=== PATIENT | female | born 1930 | race Two or more races ===

== ENCOUNTER 2017-08-05 22:23 | Inpatient (IN) | payer MEDICARE, MEDICAID ==
[~2017-08-05] VITALS: Ht 154.9 cm; Wt 63.5 kg
[~2017-08-05 22:23] MED LIST: 8 HOUR650 MG ORAL; ASPIRIN81 MG ORAL; ASTEPRO205.5 MCG1 NS; AZELASTINE137 MCG/0. NS; BACTRIM 400-801 EACH ORAL; CALCIUM 500 +1 EAC5 PO; CHILDREN'S ASPI81 MG ORAL; CLINDAMYCIN HC150 MG ORAL; COLACE100 MG ORAL; DEXTROSE 50%-WA50 M1 IV; DIPHENHYDRAMINE25 M1 ORAL; FEROSUL325 M1 PO; FLONASE ALLERG9.9 ML NS; HEPARIN SQ; INSULIN SQ; K-SOL20 MEQ/15 PO; LANTUS SOL100 UNIT/1 SUBQ; MIRALAX17 G2 ORAL; MOTRIN IB200 MG ORAL; MULTIVITAMINS1 EAC8 ORAL; MYLANTA30 M1 PO; NITROGLYCERIN0.4 MG SL; NOVOLIN N100 UNIT/1 SUBQ; NOVOLOG100 UNITS1; PAIN & FEVER325 MG PO; PRAVACHOL40 MG ORAL; ROPINIROLE HCL1 MG PO; SALINE 10ML FLU10 ML IVF; SODIUM CHLORI1000 ML IV; TRAMADOL HCL50 MG ORAL; TRAVATAN Z5 ML OP; TYLENOL650 MG/20. ORAL; VITAMIN B-121000 MCG PO; ZANTAC150 MG IVP; ZANTAC150 MG ORAL; ZOFRAN 4 MG4 MG/2 ML IV
[2017-08-05 22:30] VITALS: BP 127/60
[2017-08-05 23:11] LABS: BASOPHILS % (AUTO) 0.8 % (0.0-2.0); EOSINOPHILS % (AUTO) 1.1 % (0.0-3.0); LYMPHOCYTES % (AUTO) 11.5 % (20.0-45.0); MEAN CORPUSCULAR HGB CONC 30.1 G/DL (32.0-36.0); MEAN CORPUSCULAR VOLUME 90 FL (80-99); MEAN PLATELET VOLUME 5.8 FL (6.5-10.1); MONOCYTES % (AUTO) 5.2 % (1.0-10.0); NEUTROPHILS % (AUTO) 81.6 % (45.0-75.0); PLATELET COUNT 493 K/UL (150-450); RED BLOOD COUNT 3.58 M/UL (4.20-5.40); RED CELL DISTRIBUTION WIDTH 13.8 % (11.6-14.8); WHITE BLOOD COUNT 15.7 K/UL (4.8-10.8)
[2017-08-05 23:18] LABS: APPEARANCE,URINE CLOUDY; KETONES,URINE NEGATIVE (NEGATIVE); LEUKOCYTE ESTERASE ,URINE 3+ (NEGATIVE); NITRITE,URINE NEGATIVE (NEGATIVE); PH,URINE 9 (4.5-8.0); PROTEIN,URINE 3+ (NEGATIVE); UROBILINOGEN,URINE NORMAL MG/DL (0.0-1.0)
[2017-08-05 23:38] LABS: ALANINE AMINOTRANSFERASE 39 U/L (12-78); ALBUMIN/GLOBULIN RATIO 0.3 (1.0-2.7); ANION GAP 16 mmol/L (5-15); ASPARTATE AMINO TRANSFERASE 41 U/L (15-37); CALCIUM 9.6 MG/DL (8.5-10.1); CARBON DIOXIDE 15 MMOL/L (21-32); CHLORIDE 104 MMOL/L (98-107); CREATININE 1.8 MG/DL (0.55-1.30); POTASSIUM 3.4 MMOL/L (3.5-5.1); SODIUM 135 MMOL/L (136-145); TOTAL PROTEIN 7.8 G/DL (6.4-8.2)
[2017-08-05 23:49] LABS: REFLEX LACTIC ACID YES OR NO YES
[2017-08-06] VITALS (7 sets, daily range): BP systolic 100–143; BP diastolic 41–67
[2017-08-06 00:11] LABS: BACTERIA,URINE MANY /HPF; SQUAMOUS EPITHELIAL CELL,UR OCCASIONAL /LPF (NONE/OCC)
[2017-08-06] MEDS ORDERED: Cefepime HCl 1 GM in D5W 55 ML IVPB ONE (00:15)
[2017-08-06] MEDS ORDERED: Cefepime 1gm vial ONE (00:24)
[2017-08-06] MEDS ORDERED: VITAMIN C500 M1 ORAL (01:38)
[2017-08-06] MEDS ORDERED: NOVOLOG100 UNIT/4 SQ (01:38)
[2017-08-06] MEDS ORDERED: ZANTAC150 MG ORAL (01:38)
[2017-08-06] MEDS ORDERED: NUTRISOURCE FI1 EACH PO (01:38)
[2017-08-06] MEDS ORDERED: SANTYL30 GM TP (01:39)
--- NOTE | 2017-08-06 01:43 | Emergency Room Report ---
History of Present Illness General Chief Complaint: Altered Level of Consciousness Source: Patient, Family Member, Medical Record, EMS Present Illness HPI Is an 87-year-old female coming from a [facility]. She present with altered mental status and fever. Onset for the last day. No nausea no vomiting. Increased work of breathing. History is from the [facility] note EMS. Patient has dementia so history is limited. Allergies: Coded Allergies: PENICILLINS (Unverified Allergy, Unknown, 08/05/17) Patient History Past Medical History: see triage record, old chart reviewed, DM, HTN Past Surgical History: other Pertinent Family History: none Social History: Denies: smoking Last Menstrual Period: n/a Now: No Immunizations: other Reviewed Nursing Documentation: PMH: Agreed, PSxH: Agreed Nursing Documentation-PMH Past Medical History: No History, Except For Hx Cardiac Problems: No Hx Hypertension: Yes - Hyperlipidemia Hx Diabetes: Yes Hx Cancer: Yes Hx Gastrointestinal Problems: Yes - Ventral Hernia Hx Neurological Problems: No Review of Systems Constitutional: Reports: malaise, weakness Eye: Denies: eye pain, blurred vision ENT: Denies: ear pain, nose congestion, throat swelling Respiratory: Denies: cough, shortness of breath Cardiovascular: Denies: chest pain, palpitations Gastrointestinal: Denies: abdominal pain, diarrhea, nausea, vomiting Musculoskeletal: Denies: back pain, joint pain Skin: Denies: rash Neurological: Denies: headache, numbness Endocrine: Denies: increased thirst, increased urine Hematologic/Lymphatic: Denies: easy bruising All Other Systems: negative except mentioned in HPI Physical Exam Vital Signs Date Time Temp Pulse Resp B/P (MAP) Pulse Ox O2 Delivery O2 Flow Rate FiO2 08/05/17 22:19 99.1 116 25 95 Room Air 08/05/17 22:30 127/60 vitals with tachycardia Sp02 EP Interpretation: reviewed, normal General Appearance: mild distress, lethargic, thin, Chronically Ill Head: normocephalic, atraumatic Eyes: bilateral eye PERRL, bilateral eye EOMI ENT: hearing grossly normal, normal pharynx Neck: full range of motion, supple, no meningismus Respiratory: chest non-tender, lungs clear, normal breath sounds Cardiovascular #1: regular rate, rhythm, no murmur Gastrointestinal: normal bowel sounds, non tender, no mass, no organomegaly, no bruit, non-distended Musculoskeletal: back normal, normal range of motion Neurologic: grossly normal Psychiatric: mood/affect normal Skin: warm/dry Procedures Critical Care Time Critical Care Time Critical care is mandated in this patient who presented with sepsis from UTI. Patient require my urgent intervention to attenuate the risks of metabolic collapse which may lead to cardiovascular collapse and . Critical care time is 35 minutes excluding any reportable procedure. Critical care time included evaluation, multiple reevaluation, looking at old charts, interpreting laboratory and diagnostic data, discussing case with patient and family and consultants, and charting. Medical Decision Making Diagnostic Impression: Primary Impression: Sepsis Qualified Codes: A41.9 - Sepsis, unspecified organism Additional Impressions: UTI (urinary tract infection) Qualified Codes: N30.00 - Acute cystitis without hematuria Encephalopathy acute Hyperglycemia due to type 2 diabetes mellitus Qualified Codes: E11.65 - Type 2 diabetes mellitus with hyperglycemia Dehydration Prerenal azotemia Anemia Qualified Codes: D64.9 - Anemia, unspecified ER Course Patient presents with sepsis from UTI. She has evidence of dehydration and high blood sugar. Mental status improved greatly after IV fluid antibiotics. We'll get for continued treatment. Laboratory Tests Test 08/05/17 22:28 08/05/17 22:34 08/06/17 00:15 Urine Color Pale yellow Urine Appearance Cloudy Urine pH 9 (4.5-8.0) Urine Specific [place] 1.010 (1.005-1.035) Urine Protein 3+ (NEGATIVE) H Urine Glucose (UA) 3+ (NEGATIVE) H Urine Ketones Negative (NEGATIVE) Urine Occult Blood 3+ (NEGATIVE) H Urine Nitrite Negative (NEGATIVE) Urine Bilirubin Negative (NEGATIVE) Urine Urobilinogen Normal MG/DL (0.0-1.0) Urine Leukocyte Esterase 3+ (NEGATIVE) H Urine RBC 2-4 /HPF (0 - 2) H Urine WBC 2-4 /HPF (0 - 2) Urine Squamous Epithelial Cells Occasional /LPF Urine Bacteria Many /HPF (NONE) H White Blood Count 15.7 K/UL (4.8-10.8) H Red Blood Count 3.58 M/UL (4.20-5.40) L Hemoglobin 9.7 G/DL (12.0-16.0) L Hematocrit 32.1 % (37.0-47.0) L Mean Corpuscular Volume 90 FL (80-99) Mean Corpuscular Hemoglobin 27.0 PG (27.0-31.0) Mean Corpuscular Hemoglobin Concent 30.1 G/DL (32.0-36.0) L Red Cell Distribution Width 13.8 % (11.6-14.8) Platelet Count 493 K/UL (150-450) H Mean Platelet Volume 5.8 FL (6.5-10.1) L Neutrophils (%) (Auto) 81.6 % (45.0-75.0) H Lymphocytes (%) (Auto) 11.5 % (20.0-45.0) L Monocytes (%) (Auto) 5.2 % (1.0-10.0) Eosinophils (%) (Auto) 1.1 % (0.0-3.0) Basophils (%) (Auto) 0.8 % (0.0-2.0) Sodium Level 135 MMOL/L (136-145) L Potassium Level 3.4 MMOL/L (3.5-5.1) L Chloride Level 104 MMOL/L (98-107) Carbon Dioxide Level 15 MMOL/L (21-32) L Anion Gap 16 mmol/L (5-15) H Blood Urea Nitrogen 60 mg/dL (7-18) H Creatinine 1.8 MG/DL (0.55-1.30) H Estimat Glomerular Filtration Rate mL/min (>60) Glucose Level 413 MG/DL (74-106) H Lactic Acid Level 2.50 mmol/L (0.66-2.22) H 1.90 mmol/L (0.66-2.22) Calcium Level 9.6 MG/DL (8.5-10.1) Total Bilirubin 0.2 MG/DL (0.2-1.0) Aspartate Amino Transf (AST/SGOT) 41 U/L (15-37) H Alanine Aminotransferase (ALT/SGPT) 39 U/L (12-78) Alkaline Phosphatase 222 U/L (46-116) H Total Creatine Kinase 247 U/L (26-308) Creatine Kinase MB 1.0 NG/ML (0.0-3.6) Creatine Kinase MB Relative Index 0.4 Troponin I 0.000 ng/mL (0.000-0.056) Total Protein 7.8 G/DL (6.4-8.2) Albumin 1.7 G/DL (3.4-5.0) L Globulin 6.1 g/dL Albumin/Globulin Ratio 0.3 (1.0-2.7) L Lab Results Impression labs with elevated glucose and white count EKG Diagnostic Results Rate: tachycardiac Rhythm: NSR ST Segments: no acute changes Rhythm Strip Diag. Results Rhythm Strip Time: 01:42 EP Interpretation: yes Rate: 86 Rhythm: NSR, no PVC's, no ectopy Chest X-Ray Diagnostic Results Chest X-Ray Diagnostic Results : Chest X-Ray Ordered: Yes # of Views/Limited/Complete: 1 View Indication: Shortness of Breath EP Interpretation: Yes Interpretation: no consolidation, no effusion, no pneumothorax Impression: No acute disease Electronically Signed by: Electronically signed by Sarkis Acosta MD Last Vital Signs Date Time Temp Pulse Resp B/P (MAP) Pulse Ox O2 Delivery O2 Flow Rate FiO2 08/06/17 00:00 98.7 93 19 112/41 96 Room Air Status: improved Disposition: ADMITTED INPATIENT Condition: Serious Referrals: NON PHYSICIAN (PCP) SARKIS ACOSTA M.D. Aug 06, 2017 01:43
[2017-08-06] MEDS ORDERED: FERROUS SULFAT325 M2 ORAL ×2 (03:19)
[2017-08-06] MEDS ORDERED: FOLIC ACID1 MG ORAL (03:19)
[2017-08-06] MEDS ORDERED: Nitroglycerin Subl 0.4mg tab SL PRN (07:00)
[2017-08-06] MEDS ORDERED: Albuterol/Ipratropium 3ml neb HHN PRN (07:00)
[2017-08-06] MEDS ORDERED: Miralax 17gm pkt ORAL PRN (07:00)
[2017-08-06] MEDS ORDERED: Morphine Sulfate 2mg/ml Inj IVP PRN (07:00)
[2017-08-06] MEDS ORDERED: Vancomycin 1250mg/D5W 250ml IVPB ONE (08:30)
[2017-08-06] MEDS ORDERED: Cefepime HCl 2 GM in D5W 110 ML IV SCH (09:00)
[2017-08-06 09:56] LABS: INR 1.1 (0.9-1.1); PROTHROMBIN TIME 11.1 SEC (9.30-11.50)
[2017-08-06 10:00] LABS: LACTATE DEHYDROGENASE 222 U/L (81-234); URIC ACID 3.2 MG/DL (2.6-7.2)
[2017-08-06] MEDS: Heparin 5000 units/ml inj SUBQ SCH ×2 (10:12→21:37)
[2017-08-06 10:28] LABS: FOLIC ACID 7.4 NG/ML (3.1-17.5); IRON 13 ug/dL (50-175); TOTAL IRON BINDING CAPACITY 94 ug/dL (250-450)
[2017-08-06 11:16] LABS: RETICULOCYTE COUNT 0.8 % (0.0-2.0)
[2017-08-06 11:34] LABS: ERYTHROCYTE SEDIMENTATION RATE 128 MM/HR (0-42)
[2017-08-06 11:42] LABS: MEAN CORPUSCULAR HEMOGLOBIN 28.5 PG (27.0-31.0); MEAN CORPUSCULAR HGB CONC 32.8 G/DL (32.0-36.0); MEAN CORPUSCULAR VOLUME 87 FL (80-99); MEAN PLATELET VOLUME 5.3 FL (6.5-10.1); PLATELET COUNT 458 K/UL (150-450); RED BLOOD COUNT 3.06 M/UL (4.20-5.40); RED CELL DISTRIBUTION WIDTH 13.9 % (11.6-14.8); WHITE BLOOD COUNT 16.4 K/UL (4.8-10.8)
--- NOTE | 2017-08-06 11:43 | Diagnostic Imaging Report ---
Indication: Shortness of breath Technique: One view of the chest Comparison: none Findings: There is atelectasis at the left lateral lung base. There is minimal atelectasis at the right lateral lung base. The lungs and pleural spaces otherwise clear. The heart size is normal. Aorta is tortuous and ectatic. There are degenerative changes of both shoulders Impression: Left greater than right basilar atelectasis No acute process otherwise
[2017-08-06 11:57] LABS: BAND NEUTROPHILS % (MANUAL) 0 % (0-8); BASOPHILS % (MANUAL) 0 % (0-2); EOSINOPHILS % (MANUAL) 0 % (0-3); LYMPHOCYTES % (MANUAL) 9 % (20-45); NEUTROPHILS % (MANUAL) 86 % (45-75); PLATELET ESTIMATE INCREASED; PLATELET MORPHOLOGY NORMAL; TOTAL CELLS COUNTED 100
[2017-08-06 12:01] LABS: PATH BLOOD SMEAR/OMC SENT TO PATHOLOGIST
[2017-08-06] MEDS: NovoLOG Insulin Flexpen SUBQ SCH ×4 (13:26→21:48)
--- NOTE | 2017-08-06 13:33 | History and Physical ---
History of Present Illness General Date patient seen: Aug 06, 2017 Reason for Hospitalization: Altered Level of Consciousness Present Illness HPI 87-year-old female with PMHx of of DM, decubiti Ulcers. bed bound coming from a alf with CC of altered mental status and fever. Onset for the last day. No nausea no vomiting. Pt was found to be septic and admitted to telemetry. Currently pt is awake and keep saying that she rather be and [place]. Pt's son is at bed site and witnessing this. Pt is full code. Allergies: Coded Allergies: PENICILLINS (Unverified Allergy, Unknown, 08/05/17) Medication History Scheduled Ascorbic Acid* (Vitamin C*), 500 MG ORAL DAILY, (Reported) Clindamycin Hcl* (Clindamycin Hcl*), 300 MG ORAL TID, (Reported) Docusate Sodium* (Colace*), 100 MG ORAL THREE TIMES A DAY, (Reported) Ferrous Sulfate (Ferrous Sulfate), 325 MG ORAL DAILY, (Reported) Folic Acid* (Folic Acid*), 1 MG ORAL DAILY, (Reported) Ranitidine Hcl* (Zantac*), 150 MG ORAL DAILY, (Reported) Saline (Sodium Chloride), 10 ML IVF NEEDED, (Reported) Sulfamethoxazole/Trimethoprim (Bactrim 400-80 Mg Tablet*), 1 TAB ORAL TWICE A DAY, (Reported) [Heparin], 5,000 UNITS SQ EVERY 12 HOURS, (Reported) [Insulin], SQ AC+HS, (Reported) Scheduled PRN Acetaminophen (Pain & Fever), 650 MG PO Q6HR PRN for Fever/Headache/Mild Pain, ( Reported) Al Hydroxide/mg Hydroxide (Mag-Al Liquid), 30 ML PO EVERY 6 HOURS PRN for Nausea & Vomiting, (Reported) Dextrose 50 % In Water (Dextrose 50%-Water Vial), 50 ML IV NEEDED PRN for Hypoglycemia, (Reported) Diphenhydramine Hcl* (Diphenhydramine Hcl*), 25 MG ORAL Q6H PRN for Itching, ( Reported) Nitroglycerin (Nitroglycerin), 0.4 MG SL EVERY 5 MIN X 3DOSES PRN for Prn Chest Pain, (Reported) Ondansetron* (Zofran*), 4 MG IV Q6H PRN for Nausea & Vomiting, (Reported) Polyethylene Glycol 3350* (Miralax*), 17 GM ORAL HS PRN for Constipation, ( Reported) Miscellaneous Medications Collagenase Clostridium Hist. (Santyl), 1 APPLIC TP, (Reported) Guar Gum (Nutrisource Fiber), 1 EACH PO, (Reported) Insulin Aspart (Novolog), 100 UNIT SQ, (Reported) Sodium Chloride (Sodium Chloride), 1,000 ML IV, (Reported) Patient History Healthcare decision maker [facility] Resuscitation status Full Code Advanced Directive on File No Past Medical/Surgical History Past Medical/Surgical History: (1) Diabetes mellitus (2) HTN (hypertension) (3) History of uterine cancer Review of Systems All Other Systems: negative except mentioned in HPI Physical Exam General Appearance: WD/WN Lines, tubes and drains: peripheral HEENT: normocephalic, atraumatic Neck: non-tender, normal alignment Respiratory/Chest: chest wall non-tender, lungs clear, normal breath sounds Cardiovascular/Chest: normal peripheral pulses, normal rate Abdomen: non tender, soft Genitourinary/Rectal: normal rectal exam Extremities: normal range of motion Skin Exam: other - extensive decub Last 24 Hour Vital Signs Date Time Temp Pulse Resp B/P (MAP) Pulse Ox O2 Delivery O2 Flow Rate FiO2 08/06/17 08:00 98.8 84 18 107/44 99 Room Air 08/06/17 04:00 97.3 71 22 101/51 97 Room Air 08/06/17 04:00 95 08/06/17 02:20 97.9 98 20 100/67 98 Room Air 08/06/17 01:58 69 21 103/58 97 Room Air 08/06/17 00:00 98.7 93 19 112/41 96 Room Air 08/05/17 22:30 99.3 114 23 127/60 95 Room Air 08/05/17 22:19 99.1 116 25 95 Room Air Laboratory Tests Test 08/05/17 22:28 08/05/17 22:34 08/06/17 00:15 08/06/17 08:40 Urine Color Pale yellow Urine Appearance Cloudy Urine pH 9 (4.5-8.0) Urine Specific [place] 1.010 (1.005-1.035) Urine Protein 3+ (NEGATIVE) H Urine Glucose (UA) 3+ (NEGATIVE) H Urine Ketones Negative (NEGATIVE) Urine Occult Blood 3+ (NEGATIVE) H Urine Nitrite Negative (NEGATIVE) Urine Bilirubin Negative (NEGATIVE) Urine Urobilinogen Normal MG/DL (0.0-1.0) Urine Leukocyte Esterase 3+ (NEGATIVE) H Urine RBC 2-4 /HPF (0 - 2) H Urine WBC 2-4 /HPF (0 - 2) Urine Squamous Epithelial Cells Occasional /LPF Urine Bacteria Many /HPF (NONE) H White Blood Count 15.7 K/UL (4.8-10.8) H 16.4 K/UL (4.8-10.8) H Red Blood Count 3.58 M/UL (4.20-5.40) L 3.06 M/UL (4.20-5.40) L Hemoglobin 9.7 G/DL (12.0-16.0) L 8.7 G/DL (12.0-16.0) L Hematocrit 32.1 % (37.0-47.0) L 26.6 % (37.0-47.0) L Mean Corpuscular Volume 90 FL (80-99) 87 FL (80-99) Mean Corpuscular Hemoglobin 27.0 PG (27.0-31.0) 28.5 PG (27.0-31.0) Mean Corpuscular Hemoglobin Concent 30.1 G/DL (32.0-36.0) L 32.8 G/DL (32.0-36.0) Red Cell Distribution Width 13.8 % (11.6-14.8) 13.9 % (11.6-14.8) Platelet Count 493 K/UL (150-450) H 458 K/UL (150-450) H Mean Platelet Volume 5.8 FL (6.5-10.1) L 5.3 FL (6.5-10.1) L Neutrophils (%) (Auto) 81.6 % (45.0-75.0) H % (45.0-75.0) Lymphocytes (%) (Auto) 11.5 % (20.0-45.0) L % (20.0-45.0) Monocytes (%) (Auto) 5.2 % (1.0-10.0) % (1.0-10.0) Eosinophils (%) (Auto) 1.1 % (0.0-3.0) % (0.0-3.0) Basophils (%) (Auto) 0.8 % (0.0-2.0) % (0.0-2.0) Sodium Level 135 MMOL/L (136-145) L Potassium Level 3.4 MMOL/L (3.5-5.1) L Chloride Level 104 MMOL/L (98-107) Carbon Dioxide Level 15 MMOL/L (21-32) L Anion Gap 16 mmol/L (5-15) H Blood Urea Nitrogen 60 mg/dL (7-18) H Creatinine 1.8 MG/DL (0.55-1.30) H Estimat Glomerular Filtration Rate mL/min (>60) Glucose Level 413 MG/DL (74-106) H Lactic Acid Level 2.50 mmol/L (0.66-2.22) H 1.90 mmol/L (0.66-2.22) Calcium Level 9.6 MG/DL (8.5-10.1) Total Bilirubin 0.2 MG/DL (0.2-1.0) Aspartate Amino Transf (AST/SGOT) 41 U/L (15-37) H Alanine Aminotransferase (ALT/SGPT) 39 U/L (12-78) Alkaline Phosphatase 222 U/L (46-116) H Total Creatine Kinase 247 U/L (26-308) 234 U/L (26-308) Creatine Kinase MB 1.0 NG/ML (0.0-3.6) Creatine Kinase MB Relative Index 0.4 Troponin I 0.000 ng/mL (0.000-0.056) Total Protein 7.8 G/DL (6.4-8.2) Albumin 1.7 G/DL (3.4-5.0) L Globulin 6.1 g/dL Albumin/Globulin Ratio 0.3 (1.0-2.7) L Differential Total Cells Counted 100 Neutrophils % (Manual) 86 % (45-75) H Lymphocytes % (Manual) 9 % (20-45) L Monocytes % (Manual) 5 % (1-10) Eosinophils % (Manual) 0 % (0-3) Basophils % (Manual) 0 % (0-2) Band Neutrophils 0 % (0-8) Platelet Estimate Increased H Platelet Morphology Normal Red Blood Cell Morphology Normal Erythrocyte Sedimentation Rate 128 MM/HR (0-42) H Reticulocyte Count 0.8 % (0.0-2.0) Prothrombin Time 11.1 SEC (9.30-11.50) Prothromb Time International Ratio 1.1 (0.9-1.1) Activated Partial Thromboplast Time 31 SEC (23-33) Uric Acid 3.2 MG/DL (2.6-7.2) Iron Level 13 ug/dL (50-175) L Total Iron Binding Capacity 94 ug/dL (250-450) L Percent Iron Saturation 14 % (15-50) L Unsaturated Iron Binding 81 ug/dL (112-346) L Lactate Dehydrogenase 222 U/L (81-234) Vitamin B12 Level 297 PG/ML (193-986) Folate 7.4 NG/ML (3.1-17.5) Height (Feet): 5 Height (Inches): 1.00 Weight (Pounds): 140 Medications Current Medications Medications (Trade) Dose Ordered Sig/Hasmukh Route PRN Reason Start Time Stop Time Status Last Admin Dose Admin Acetaminophen (Tylenol) 650 mg Q4H PRN ORAL T>100.5 08/06/17 07:00 09/05/17 06:59 Albuterol/ Ipratropium (DuoNeb 0.5-3(2.5)mg/3ml) 3 ml Q4H PRN HHN Shortness of Breath 08/06/17 07:00 08/11/17 06:59 Cefepime HCl 1 gm/ Dextrose 55 ml @ 110 mls/hr Q24H IVPB 08/06/17 23:00 08/13/17 22:59 Dextrose (Dextrose 50%) STAT PRN IV Hypoglycemia 08/06/17 07:00 09/05/17 06:59 Heparin Sodium (Porcine) (Heparin 5000 units/ml) 5,000 units EVERY 12 HOURS SUBQ 08/06/17 09:00 09/05/17 08:59 08/06/17 10:12 Insulin Aspart (NovoLOG) BEFORE MEALS AND HS SUBQ 08/06/17 11:30 09/05/17 11:29 Morphine Sulfate (Morphine Sulfate) 2 mg Q4H PRN IVP Moderate Pain (Pain Scale 4-6) 08/06/17 07:00 08/13/17 06:59 Nitroglycerin (Ntg) 0.4 mg Q5MIN X 3 DOSES PRN SL Prn Chest Pain 08/06/17 07:00 09/05/17 06:59 Ondansetron HCl (Zofran) 4 mg Q6H PRN IVP Nausea & Vomiting 08/06/17 07:00 09/05/17 06:59 Polyethylene Glycol (Miralax) 17 gm DAILYPRN PRN ORAL Constipation 08/06/17 07:00 09/05/17 06:59 Sodium Chloride 1,000 ml @ 150 mls/hr Q6H40M IV 08/06/17 07:00 09/05/17 06:59 08/06/17 07:47 Temazepam (Restoril) 15 mg HSPRN PRN ORAL Insomnia 08/06/17 21:00 08/13/17 20:59 Vancomycin HCl (Vanco rx to dose) 1 ea DAILY PRN MISC . 08/06/17 07:00 09/05/17 06:59 Assessment/Plan Problem List: (1) Sepsis ICD Codes: A41.9 - Sepsis, unspecified organism SNOMED: 50681741, 02833396 Qualifiers: Qualified Codes: A41.9 - Sepsis, unspecified organism (2) Encephalopathy acute ICD Codes: G93.40 - Encephalopathy, unspecified SNOMED: 4845618 (3) HTN (hypertension) ICD Codes: I10 - Essential (primary) hypertension SNOMED: 81621485 (4) Anemia ICD Codes: D64.9 - Anemia, unspecified SNOMED: 233550889 Qualifiers: Qualified Codes: D64.9 - Anemia, unspecified (5) History of uterine cancer ICD Codes: Z85.42 - Personal history of malignant neoplasm of other parts of uterus SNOMED: 014550577, 596264267, 994466794 Assessment/Plan gill culture IV abx check electrolytes Dr hull informed about Decubiti iv hydration renal w/u. MELISSA ARDON Aug 06, 2017 13:33
--- NOTE | 2017-08-06 15:06 | Wound Care Consultation ---
Wound Assessment Wound Assessment #1: Wound Number: 1 Wound Present on Admission: Yes New Wound: No Status Change of Wound: No Wound Location Body Site Modif: mid Wound Location Body Site: sacral Wound Type: pressure ulcer Thien Test: Does not Thien Pressure Ulcer Stage: Unstageable Wound Thickness: Full Thickness Wound Length: 6.5 Wound Width: 6.0 Wound Depth: utd Percent of Wound [place]/Red: 20 Percent of Wound Bed Yellow/Wh: 80 Wound Drainage Description: Serosanguineous Wound Drainage Amount: Moderate Wound Drainage Odor: None/Absent Tissue Surrounding Wound: Macerated Wound General Appearance: Draining, Necrotic Wound Assessment #2: Wound Number: 2 Wound Present on Admission: Yes New Wound: No Status Change of Wound: No Wound Location Body Site Modif: left Wound Location Body Site: heel Wound Type: pressure ulcer Thien Test: Does not Thien Pressure Ulcer Stage: Deep Tissue Injury Wound Thickness: Full Thickness Wound Length: 5.5 Wound Width: 5.0 Wound Depth: utd Percent of Wound Purple/Maroon: 100 Wound Drainage Amount: None Wound Drainage Odor: None/Absent Tissue Surrounding Wound: Erythemic Wound General Appearance: Reddened - maroon Wound Assessment #3: Wound Number: 3 Wound Present on Admission: Yes New Wound: No Status Change of Wound: No Wound Location Body Site Modif: right Wound Location Body Site: metatarsal head - 1st Wound Type: pressure ulcer Thien Test: Does not Thien Pressure Ulcer Stage: Deep Tissue Injury Wound Thickness: Full Thickness Wound Length: 3.5 Wound Width: 3.0 Wound Depth: utd Percent of Wound Purple/Maroon: 100 Wound Drainage Amount: None Wound Drainage Odor: None/Absent Tissue Surrounding Wound: Erythemic Wound General Appearance: Reddened - purple Wound Assessment #4: Wound Number: 4 Wound Present on Admission: Yes New Wound: No Status Change of Wound: No Wound Location Body Site Modif: right, lateral Wound Location Body Site: toe - big Wound Type: pressure ulcer Thien Test: Does not Thien Pressure Ulcer Stage: Deep Tissue Injury Wound Thickness: Full Thickness Wound Length: 2.5 Wound Width: 2.0 Wound Depth: utd Percent of Wound Purple/Maroon: 100 Wound Drainage Amount: None Wound Drainage Odor: None/Absent Tissue Surrounding Wound: Erythemic Wound General Appearance: Reddened - purple Wound Assessment #5: Wound Number: 5 Wound Present on Admission: Yes New Wound: No Status Change of Wound: No Wound Location Body Site Modif: left Wound Location Body Site: trochanter Wound Type: pressure ulcer Thien Test: Does not Thien Pressure Ulcer Stage: I Wound Length: 3.0 Wound Width: 2.5 Percent of Wound [place]/Red: 100 Wound Drainage Amount: None Wound Drainage Odor: None/Absent Tissue Surrounding Wound: Intact Wound General Appearance: Reddened Wound Assessment #6: Wound Number: 6 Wound Present on Admission: Yes New Wound: No Status Change of Wound: No Wound Location Body Site Modif: right Wound Location Body Site: trochanter Wound Type: pressure ulcer Thien Test: Does not Thien Pressure Ulcer Stage: Deep Tissue Injury Wound Thickness: Full Thickness Wound Length: 6.5 Wound Width: 5.0 Wound Depth: utd Percent of Wound Purple/Maroon: 100 Wound Drainage Amount: None Wound Drainage Odor: None/Absent Tissue Surrounding Wound: Erythemic Wound General Appearance: Reddened - purple Wound Comment #1 Sacral unstageable pressure ulcer #2 Left heel DTI pressure ulcer #3 Right lateral 1st metatarsal head DTI pressure ulcer #4 Right lateral big toe DTI pressure ulcer #5 Left trochanter stage I pressure ulcer #6 Right trochanter DTI pressure ulcer Recommendation -Sacral unstageable pressure ulcer Cleanse with 1/2 Dakin's solution, pat dry, apply Triad to periwound area, apply Therahoney gel to wound bed, cover with Biatain silicone drg daily and PRN soiled/dislodged -Local wound care per protocol for DTI and stage I pressure ulcers -Optimize nutrition -Keep clean and dry -Turn ad reposition -Low air loss mattress -Offload both heels -Heel protector on both heels -Assess and f/u accordingly for any changes LOU SIU RN Aug 06, 2017 15:06
--- NOTE | 2017-08-06 15:20 | Cardiology Report ---
APPROVED REPORT EKG Measurement Heart [id number] Sinus tachycardia Right bundle branch block Left anterior fascicular block Bifascicular block Possible Lateral infarct, age undetermined Abnormal ECG
--- NOTE | 2017-08-06 18:32 | Consultation ---
Consult Note Consult Note ID CONSULT: Gala# [id number] Assessment/Plan ASSESSMENT: 87 y/o female with: // Possible UTI - delayed UCx pending // Stage IV sacral decubitus ulcer POA, possibly infected - WCx pending // Multiple DTI POA // Sepsis // Lactic acidosis - resolved // Leukocytosis // Fever // Acute encephalopathy, m/l septic, metabolic // ARF on CKD3 // Thrombocytosis // h/o ventral umbilical hernia incarceration - SP exploratory laparotomy, lysis of adhesions, repair of large ventral hernia with mesh 08/20/16 // h/o uterine CA // DM2 // [facility] resident // PCN allergy - tolerating cefepime // Full Code PLAN: - continue empiric IV vancomycin, cefepime d# 1 - f/u cultures - monitor CBC, temperatures - monitor BMP - wound care Thanks! Will follow LYNDSAY GARCÍA Aug 06, 2017 18:32
[2017-08-06 21:03] LABS: APPEARANCE,URINE CLEAR; KETONES,URINE NEGATIVE (NEGATIVE); LEUKOCYTE ESTERASE ,URINE 2+ (NEGATIVE); NITRITE,URINE NEGATIVE (NEGATIVE); PH,URINE 9 (4.5-8.0); PROTEIN,URINE 2+ (NEGATIVE); UROBILINOGEN,URINE NORMAL MG/DL (0.0-1.0)
[2017-08-06 21:38] LABS: AMORPHOUS SEDIMENT,UR FEW /LPF; BACTERIA,URINE MODERATE /HPF; SQUAMOUS EPITHELIAL CELL,UR FEW /LPF (NONE/OCC); TRIPLE PHOSPHATE CRYSTAL,UR FEW /LPF
[2017-08-07] MEDS: Cefepime 1gm/D5W 55ml IVPB SCH ×4 (00:23→22:45)
[2017-08-07] MEDS ORDERED: Vancomycin 1 GM in D5W 275 ML IV SCH (00:30)
[2017-08-07 00:45] VITALS: BP 124/53
--- NOTE | 2017-08-07 01:15 | Consultation ---
DATE OF CONSULTATION: 08/06/2017 INFECTIOUS DISEASE CONSULTATION CONSULTING PHYSICIAN: Ryan Everett M.D. REFERRING PHYSICIAN: Jumana Carbajal M.D. REASON FOR CONSULTATION: Sepsis. HISTORY OF PRESENT ILLNESS: This is an 87-year-old female, long term resident, admitted with altered mental status and fever. The patient is unable to provide any information. She meets sepsis criteria and workup is concerning for possible UTI or infected sacral decubitus ulcer. Her lactic acidosis has resolved and her fever curve has improved. Also evidence of acute renal failure and thrombocytosis. Cultures are pending and she has been started on empiric IV vancomycin and cefepime. ID now consulted to assist in management. PAST MEDICAL HISTORY: 1. Diabetes. 2. Hypertension. 3. Hyperlipidemia. 4. History of uterine cancer. 5. Chronic kidney disease stage 3. 6. Sacral decubitus ulcer. PAST SURGICAL HISTORY: Unknown. FAMILY HISTORY: Unknown. SOCIAL HISTORY: The patient is a resident of a long term. No active tobacco, alcohol, or illicit drug abuse. ALLERGIES: Penicillin, however, tolerates cephalosporins. MEDICATIONS: 1. Vancomycin. 2. Cefepime. REVIEW OF SYSTEMS: Unable to obtain. PHYSICAL EXAMINATION: VITAL SIGNS: Maximum temperature 99.3, blood pressure 121/47, heart rate in the 80s, respiratory rate 18, and saturating 95% on room air. GENERAL: No apparent distress. CARDIOVASCULAR: Regular rate and rhythm. No murmurs. PULMONARY: Clear to auscultation bilaterally. ABDOMEN: Bowel sounds present. Soft, nondistended, and nontender. MUSCULOSKELETAL: No edema. SKIN: Stage IV sacral decubitus ulcer and multiple deep tissue injuries documented elsewhere. LABORATORY DATA: White blood cell count 16.4, increased from 15.7 with left shift, hemoglobin 8.7, and platelets 458. Sodium 135, potassium 3.4, chloride 104, bicarbonate 15, BUN 10, and creatinine 1.9. Lactic acid 3.5, it increased from 1.9. Troponin negative x1. AST 41, ALT 39, and alkaline phosphatase 222. Total bilirubin 0.2. Albumin 1.7. MICROBIOLOGY: 1. On 08/05/2017, blood culture pending. 2. On From 08/06/2017, wound culture pending. 3. On 08/06/2017, urine culture pending. IMAGIN. On 08/05/2017, chest x-ray left greater than right basilar atelectasis. 2. On 08/06/2017, renal ultrasound pending. ASSESSMENT: 1. Possible urinary tract infection. Delayed urine culture is pending. 2. Stage IV sacral decubitus ulcer, present on admission and possibly infected. Wound cultures pending. 3. Multiple deep tissue injuries, present on admission. 4. Sepsis. 5. Lactic acidosis, now resolved. 6. Leukocytosis. 7. Fever. 8. Acute encephalopathy, most likely septic and metabolic. 9. Acute renal failure on chronic kidney disease stage 3. 10. Thrombocytosis. 11. History of ventral umbilical hernia incarceration, status post exploratory laparotomy repair with mesh in August 2016. 12. History of uterine cancer. 13. Diabetes type 2. 14. [facility] resident. 15. Penicillin allergy, however, tolerates cephalosporins. 16. Full Code. PLAN: 1. Continue empiric IV vancomycin and cefepime day #1. 2. Follow up cultures. 3. Monitor CBC and temperatures. 4. Monitor BMP. 5. Wound care. Thank you. We will follow. Ryan Everett M.D. DR: LYDIA JOB#: [id number] CC: Jumana Carbajal M.D.; Fax#: [phone] SIMONA PEREZ M.D ; FAX#: [phone]
[2017-08-07 04:38] VITALS: BP 126/55
[2017-08-07] MEDS: NovoLOG Insulin Flexpen SUBQ SCH ×4 (07:29→21:40)
[2017-08-07 08:00] VITALS: BP 118/48
[2017-08-07 08:02] LABS: BASOPHILS % (AUTO) 0.4 % (0.0-2.0); EOSINOPHILS % (AUTO) 1.2 % (0.0-3.0); LYMPHOCYTES % (AUTO) 12.7 % (20.0-45.0); MEAN CORPUSCULAR HEMOGLOBIN 28.2 PG (27.0-31.0); MEAN CORPUSCULAR HGB CONC 32.2 G/DL (32.0-36.0); MEAN CORPUSCULAR VOLUME 88 FL (80-99); MEAN PLATELET VOLUME 6.4 FL (6.5-10.1); MONOCYTES % (AUTO) 5.8 % (1.0-10.0); NEUTROPHILS % (AUTO) 79.9 % (45.0-75.0); PLATELET COUNT 422 K/UL (150-450); RED BLOOD COUNT 2.92 M/UL (4.20-5.40); RED CELL DISTRIBUTION WIDTH 13.8 % (11.6-14.8); WHITE BLOOD COUNT 14.3 K/UL (4.8-10.8)
[2017-08-07] MEDS: Heparin 5000 units/ml inj SUBQ SCH ×2 (08:32→21:39)
[2017-08-07 08:40] LABS: ALANINE AMINOTRANSFERASE 38 U/L (12-78); ALBUMIN/GLOBULIN RATIO 0.3 (1.0-2.7); ANION GAP 14 mmol/L (5-15); ASPARTATE AMINO TRANSFERASE 47 U/L (15-37); CARBON DIOXIDE 16 MMOL/L (21-32); CHLORIDE 112 MMOL/L (98-107); CREATININE 1.3 MG/DL (0.55-1.30); POTASSIUM 2.9 MMOL/L (3.5-5.1); SODIUM 142 MMOL/L (136-145); TOTAL PROTEIN 6.3 G/DL (6.4-8.2)
[2017-08-07] MEDS ORDERED: Dakin's 0.25% (Half Strength) 16oz TOPIC SCH (09:00)
[2017-08-07 09:17] LABS: MAGNESIUM 1.7 MG/DL (1.8-2.4); PHOSPHORUS 2.5 MG/DL (2.5-4.9)
[2017-08-07 11:55] LABS: OTHERS PATHOLOGIST COMMENT
[2017-08-07 12:00] VITALS: BP 124/57
[2017-08-07] MEDS ORDERED: Vancomycin 500 MG in NS 110 ML IVPB SCH (12:00)
--- NOTE | 2017-08-07 12:58 | Consultation ---
History of Present Illness General Date patient seen: Aug 07, 2017 Time patient seen: 12:48 Chief Complaint: Altered Level of Consciousness Referring physician: Raven Reason for Consultation: Sacral pressure ulcer Present Illness HPI Asked to evaluate this 87 yof who was admitted to [facility] [place] with altered mental status /sepsis. She resides in a long term and per records is bedridden. Upon admission she was noted to have a sacral pressure ulcer. It is unclear how long she has had this and what the treatment had been. She is unable to give history. Allergies: Coded Allergies: PENICILLINS (Unverified Allergy, Unknown, 08/05/17) Medication History Scheduled Ascorbic Acid* (Vitamin C*), 500 MG ORAL DAILY, (Reported) Clindamycin Hcl* (Clindamycin Hcl*), 300 MG ORAL TID, (Reported) Docusate Sodium* (Colace*), 100 MG ORAL THREE TIMES A DAY, (Reported) Ferrous Sulfate (Ferrous Sulfate), 325 MG ORAL DAILY, (Reported) Folic Acid* (Folic Acid*), 1 MG ORAL DAILY, (Reported) Ranitidine Hcl* (Zantac*), 150 MG ORAL DAILY, (Reported) Saline (Sodium Chloride), 10 ML IVF NEEDED, (Reported) Sulfamethoxazole/Trimethoprim (Bactrim 400-80 Mg Tablet*), 1 TAB ORAL TWICE A DAY, (Reported) [Heparin], 5,000 UNITS SQ EVERY 12 HOURS, (Reported) [Insulin], SQ AC+HS, (Reported) Scheduled PRN Acetaminophen (Pain & Fever), 650 MG PO Q6HR PRN for Fever/Headache/Mild Pain, ( Reported) Al Hydroxide/mg Hydroxide (Mag-Al Liquid), 30 ML PO EVERY 6 HOURS PRN for Nausea & Vomiting, (Reported) Dextrose 50 % In Water (Dextrose 50%-Water Vial), 50 ML IV NEEDED PRN for Hypoglycemia, (Reported) Diphenhydramine Hcl* (Diphenhydramine Hcl*), 25 MG ORAL Q6H PRN for Itching, ( Reported) Nitroglycerin (Nitroglycerin), 0.4 MG SL EVERY 5 MIN X 3DOSES PRN for Prn Chest Pain, (Reported) Ondansetron* (Zofran*), 4 MG IV Q6H PRN for Nausea & Vomiting, (Reported) Polyethylene Glycol 3350* (Miralax*), 17 GM ORAL HS PRN for Constipation, ( Reported) Miscellaneous Medications Collagenase Clostridium Hist. (Santyl), 1 APPLIC TP, (Reported) Guar Gum (Nutrisource Fiber), 1 EACH PO, (Reported) Insulin Aspart (Novolog), 100 UNIT SQ, (Reported) Sodium Chloride (Sodium Chloride), 1,000 ML IV, (Reported) Patient History Limited by: language barrier, medical condition History Provided By: Medical Record Healthcare decision maker [facility] Resuscitation status Full Code Advanced Directive on File No Past Medical/Surgical History Past Medical/Surgical History: (1) Diabetes mellitus (2) History of uterine cancer (3) HTN (hypertension) Review of Systems Genitourinary: Reports: incontinence Musculoskeletal: Reports: muscle stiffness Skin: Reports: see HPI Physical Exam Lines, tubes and drains: peripheral, perkins cath Respiratory/Chest: no respiratory distress Abdomen: non tender, soft Extremities: other - flexion contracture at hips and knees Skin Exam: other - Stage 4 sacral pressure ulcer with bone exposed at base. Slough present at base. Undermining from 12-7. Periskin with no erythema or warmth. Right hip with DSTI. Musculoskeletal: atrophy Last 24 Hour Vital Signs Date Time Temp Pulse Resp B/P (MAP) Pulse Ox O2 Delivery O2 Flow Rate FiO2 08/07/17 12:00 97.8 88 22 124/57 97 Room Air 08/07/17 08:00 97.7 82 22 118/48 96 Room Air 08/07/17 04:38 98.2 79 24 126/55 95 Room Air 08/07/17 04:00 75 08/07/17 00:45 98.1 79 24 124/53 95 Room Air 79 08/07/17 00:00 78 08/06/17 20:52 98.1 81 24 122/54 97 Room Air 08/06/17 16:00 82 08/06/17 16:00 98.6 82 18 121/47 95 Room Air Laboratory Tests Test 08/06/17 19:30 08/07/17 07:20 Urine Color Pale yellow Urine Appearance Clear Urine pH 9 (4.5-8.0) Urine Specific [place] 1.015 (1.005-1.035) Urine Protein 2+ (NEGATIVE) H Urine Glucose (UA) 2+ (NEGATIVE) H Urine Ketones Negative (NEGATIVE) Urine Occult Blood 2+ (NEGATIVE) H Urine Nitrite Negative (NEGATIVE) Urine Bilirubin Negative (NEGATIVE) Urine Urobilinogen Normal MG/DL (0.0-1.0) Urine Leukocyte Esterase 2+ (NEGATIVE) H Urine RBC 5-10 /HPF (0 - 2) H Urine WBC 10-15 /HPF (0 - 2) H Urine Squamous Epithelial Cells Few /LPF (NONE/OCC) Urine Triple Phosphate Crystals Few /LPF (NONE) H Urine Amorphous Sediment Few /LPF (NONE) H Urine Bacteria Moderate /HPF (NONE) H Urine Eosinophils None seen Urine Random Sodium 69 MEQ/L (20-110) Urine Potassium Timed 22 mmol/L (12-62) White Blood Count 14.3 K/UL (4.8-10.8) H Red Blood Count 2.92 M/UL (4.20-5.40) L Hemoglobin 8.2 G/DL (12.0-16.0) L Hematocrit 25.6 % (37.0-47.0) L Mean Corpuscular Volume 88 FL (80-99) Mean Corpuscular Hemoglobin 28.2 PG (27.0-31.0) Mean Corpuscular Hemoglobin Concent 32.2 G/DL (32.0-36.0) Red Cell Distribution Width 13.8 % (11.6-14.8) Platelet Count 422 K/UL (150-450) Mean Platelet Volume 6.4 FL (6.5-10.1) L Neutrophils (%) (Auto) 79.9 % (45.0-75.0) H Lymphocytes (%) (Auto) 12.7 % (20.0-45.0) L Monocytes (%) (Auto) 5.8 % (1.0-10.0) Eosinophils (%) (Auto) 1.2 % (0.0-3.0) Basophils (%) (Auto) 0.4 % (0.0-2.0) Sodium Level 142 MMOL/L (136-145) Potassium Level 2.9 MMOL/L (3.5-5.1) L Chloride Level 112 MMOL/L (98-107) H Carbon Dioxide Level 16 MMOL/L (21-32) L Anion Gap 14 mmol/L (5-15) Blood Urea Nitrogen 29 mg/dL (7-18) H Creatinine 1.3 MG/DL (0.55-1.30) Estimat Glomerular Filtration Rate mL/min (>60) Glucose Level 143 MG/DL (74-106) #H Calcium Level 8.0 MG/DL (8.5-10.1) L Phosphorus Level 2.5 MG/DL (2.5-4.9) Magnesium Level 1.7 MG/DL (1.8-2.4) L Total Bilirubin 0.3 MG/DL (0.2-1.0) Aspartate Amino Transf (AST/SGOT) 47 U/L (15-37) H Alanine Aminotransferase (ALT/SGPT) 38 U/L (12-78) Alkaline Phosphatase 180 U/L (46-116) H Total Protein 6.3 G/DL (6.4-8.2) L Albumin 1.3 G/DL (3.4-5.0) L Globulin 5.0 g/dL Albumin/Globulin Ratio 0.3 (1.0-2.7) L Random Vancomycin Level 9.8 ug/mL Height (Feet): 5 Height (Inches): 1.00 Weight (Pounds): 140 Medications Current Medications Medications (Trade) Dose Ordered Sig/Hasmukh Route PRN Reason Start Time Stop Time Status Last Admin Dose Admin Acetaminophen (Tylenol) 650 mg Q4H PRN ORAL T>100.5 08/06/17 07:00 09/05/17 06:59 Albuterol/ Ipratropium (DuoNeb 0.5-3(2.5)mg/3ml) 3 ml Q4H PRN HHN Shortness of Breath 08/06/17 07:00 08/11/17 06:59 Cefepime HCl 1 gm/ Dextrose 55 ml @ 110 mls/hr Q24H IVPB 08/06/17 23:00 08/13/17 22:59 08/07/17 00:23 Dextrose (Dextrose 50%) STAT PRN IV Hypoglycemia 08/06/17 07:00 09/05/17 06:59 Heparin Sodium (Porcine) (Heparin 5000 units/ml) 5,000 units EVERY 12 HOURS SUBQ 08/06/17 09:00 09/05/17 08:59 08/07/17 08:32 Insulin Aspart (NovoLOG) BEFORE MEALS AND HS SUBQ 08/06/17 11:30 09/05/17 11:29 08/07/17 12:09 Morphine Sulfate (Morphine Sulfate) 2 mg Q4H PRN IVP Moderate Pain (Pain Scale 4-6) 08/06/17 07:00 08/13/17 06:59 08/07/17 06:45 Nitroglycerin (Ntg) 0.4 mg Q5MIN X 3 DOSES PRN SL Prn Chest Pain 08/06/17 07:00 09/05/17 06:59 Ondansetron HCl (Zofran) 4 mg Q6H PRN IVP Nausea & Vomiting 08/06/17 07:00 09/05/17 06:59 Polyethylene Glycol (Miralax) 17 gm DAILYPRN PRN ORAL Constipation 08/06/17 07:00 09/05/17 06:59 Potassium Chloride (K-Dur) 40 meq Q4H ORAL 08/07/17 10:30 08/07/17 14:31 08/07/17 11:04 Sodium Hypochlorite (Dakin's Half Strength) 1 applic DAILY TOPIC 08/07/17 09:00 09/06/17 08:59 08/07/17 08:30 Sodium Chloride 1,000 ml @ 150 mls/hr Q6H40M IV 08/06/17 07:00 09/05/17 06:59 08/07/17 08:52 Temazepam (Restoril) 15 mg HSPRN PRN ORAL Insomnia 08/06/17 21:00 08/13/17 20:59 Vancomycin HCl (Vanco rx to dose) 1 ea DAILY PRN MISC . 08/06/17 07:00 09/05/17 06:59 Vancomycin HCl 500 mg/Sodium Chloride 110 ml @ 110 mls/hr Q24H IVPB 08/07/17 12:00 08/12/17 11:59 08/07/17 12:08 Assessment/Plan Assessment/Plan Patient with stage 4 sacral pressure ulcer. She likely has osteomyelitis. The ulcer would benefit from debridement with bone biopsy to determine osteo and pathogen. Would need to perform in OR and for this need to make sure she is medically cleared and consent is obtained. Continue to offload the area, as well as the right hip. Her prognosis for healing this ulcer is not good at this point given her co-morbidities, very low albumin level and possible osteomyelitis. Will discuss with admitting physician regarding clearance for surgery. Thank you. KASANDRA MARY Aug 07, 2017 12:58
--- NOTE | 2017-08-07 13:25 | Pulmonology Progress Note ---
Assessment/Plan Problems: (1) Sepsis (2) Encephalopathy acute (3) HTN (hypertension) (4) Anemia (5) History of uterine cancer Assessment/Plan prbc today jayda DUKES talked to DR. La about debridement. scheduled for 9 am continue abx wound care. Subjective ROS Limited/Unobtainable: No Constitutional: Reports: no symptoms HEENT: Repors: no symptoms Respiratory: Reports: no symptoms Allergies: Coded Allergies: PENICILLINS (Unverified Allergy, Unknown, 08/05/17) Objective Last 24 Hour Vital Signs Date Time Temp Pulse Resp B/P (MAP) Pulse Ox O2 Delivery O2 Flow Rate FiO2 08/07/17 12:00 97.8 88 22 124/57 97 Room Air 08/07/17 08:00 97.7 82 22 118/48 96 Room Air 08/07/17 04:38 98.2 79 24 126/55 95 Room Air 08/07/17 04:00 75 08/07/17 00:45 98.1 79 24 124/53 95 Room Air 79 08/07/17 00:00 78 08/06/17 20:52 98.1 81 24 122/54 97 Room Air 08/06/17 16:00 82 08/06/17 16:00 98.6 82 18 121/47 95 Room Air General Appearance: WD/WN HEENT: atraumatic Respiratory/Chest: chest wall non-tender, lungs clear, normal breath sounds Cardiovascular: normal peripheral pulses, normal rate Abdomen: normal bowel sounds, soft, non tender Genitourinary: normal external genitalia Extremities: no cyanosis, no clubbing Skin: no rash Microbiology Date/Time Source Procedure Growth Status 08/05/17 22:30 Blood Blood Culture - Preliminary Resulted 08/05/17 22:15 Blood Blood Culture - Preliminary Resulted 08/05/17 22:28 Urine,Clean Catch Urine Culture - Preliminary Gram Negative Bacillus 1 Resulted Laboratory Tests 08/06/17 19:30: Urine Color Pale yellow, Urine Appearance Clear, Urine pH 9, Urine Specific [place] 1.015, Urine Protein 2+H, Urine Glucose (UA) 2+H, Urine Ketones Negative , Urine Occult Blood 2+H, Urine Nitrite Negative, Urine Bilirubin Negative, Urine Urobilinogen Normal, Urine Leukocyte Esterase 2+H, Urine RBC 5-10H, Urine WBC 10-15H, Urine Squamous Epithelial Cells Few, Urine Triple Phosphate Crystals FewH, Urine Amorphous Sediment FewH, Urine Bacteria ModerateH, Urine Eosinophils None seen, Urine Random Sodium 69, Urine Potassium Timed 22 08/07/17 07:20: White Blood Count 14.3H, Red Blood Count 2.92L, Hemoglobin 8.2L, Hematocrit 25.6L, Mean Corpuscular Volume 88, Mean Corpuscular Hemoglobin 28.2, Mean Corpuscular Hemoglobin Concent 32.2, Red Cell Distribution Width 13.8, Platelet Count 422, Mean Platelet Volume 6.4L, Neutrophils (%) (Auto) 79.9H, Lymphocytes (%) (Auto) 12.7L, Monocytes (%) (Auto) 5.8, Eosinophils (%) (Auto) 1.2, Basophils (%) (Auto) 0.4, Sodium Level 142, Potassium Level 2.9L, Chloride Level 112H, Carbon Dioxide Level 16L, Anion Gap 14, Blood Urea Nitrogen 29H, Creatinine 1.3, Estimat Glomerular Filtration Rate , Glucose Level 143#H, Calcium Level 8.0L, Phosphorus Level 2.5, Magnesium Level 1.7L, Total Bilirubin 0.3, Aspartate Amino Transf (AST/SGOT) 47H, Alanine Aminotransferase (ALT/SGPT) 38, Alkaline Phosphatase 180H, Total Protein 6.3L, Albumin 1.3L, Globulin 5.0, Albumin/Globulin Ratio 0.3L, Random Vancomycin Level 9.8 Current Medications Medications (Trade) Dose Ordered Sig/Hasmukh Route PRN Reason Start Time Stop Time Status Last Admin Dose Admin Acetaminophen (Tylenol) 650 mg Q4H PRN ORAL T>100.5 08/06/17 07:00 09/05/17 06:59 Albuterol/ Ipratropium (DuoNeb 0.5-3(2.5)mg/3ml) 3 ml Q4H PRN HHN Shortness of Breath 08/06/17 07:00 08/11/17 06:59 Cefepime HCl 1 gm/ Dextrose 55 ml @ 110 mls/hr Q24H IVPB 08/06/17 23:00 08/13/17 22:59 08/07/17 00:23 Dextrose (Dextrose 50%) STAT PRN IV Hypoglycemia 08/06/17 07:00 09/05/17 06:59 Heparin Sodium (Porcine) (Heparin 5000 units/ml) 5,000 units EVERY 12 HOURS SUBQ 08/06/17 09:00 09/05/17 08:59 08/07/17 08:32 Insulin Aspart (NovoLOG) BEFORE MEALS AND HS SUBQ 08/06/17 11:30 09/05/17 11:29 08/07/17 12:09 Morphine Sulfate (Morphine Sulfate) 2 mg Q4H PRN IVP Moderate Pain (Pain Scale 4-6) 08/06/17 07:00 08/13/17 06:59 08/07/17 06:45 Nitroglycerin (Ntg) 0.4 mg Q5MIN X 3 DOSES PRN SL Prn Chest Pain 08/06/17 07:00 09/05/17 06:59 Ondansetron HCl (Zofran) 4 mg Q6H PRN IVP Nausea & Vomiting 08/06/17 07:00 09/05/17 06:59 Polyethylene Glycol (Miralax) 17 gm DAILYPRN PRN ORAL Constipation 08/06/17 07:00 09/05/17 06:59 Potassium Chloride (K-Dur) 40 meq Q4H ORAL 08/07/17 10:30 08/07/17 14:31 08/07/17 11:04 Sodium Hypochlorite (Dakin's Half Strength) 1 applic DAILY TOPIC 08/07/17 09:00 09/06/17 08:59 08/07/17 08:30 Sodium Chloride 1,000 ml @ 150 mls/hr Q6H40M IV 08/06/17 07:00 09/05/17 06:59 08/07/17 08:52 Temazepam (Restoril) 15 mg HSPRN PRN ORAL Insomnia 08/06/17 21:00 08/13/17 20:59 Vancomycin HCl (Vanco rx to dose) 1 ea DAILY PRN MISC . 08/06/17 07:00 09/05/17 06:59 Vancomycin HCl 500 mg/Sodium Chloride 110 ml @ 110 mls/hr Q24H IVPB 08/07/17 12:00 08/12/17 11:59 08/07/17 12:08 MELISSA ARDON Aug 07, 2017 13:25
--- NOTE | 2017-08-07 14:16 | Diagnostic Imaging Report ---
Indication:Elevated Bun and Creatinine. Technique: Grayscale and duplex Doppler imaging of the kidneys performed. Comparison: None Findings: The size and echogenicity of both kidneys are within normal limits. Right kidney is 10.4 CM. Left kidney 9 CM. Velasquez catheter noted. In the left kidney there is a 1.8 cm hypoechoic mass. This is possibly cystic but does appear to be internal echoes. Evaluation with contrast CT is suggested. If contrast administration is not possible due to renal failure or insufficiency, an MRI could be done without gadolinium. There is no hydronephrosis. The IVC and urinary bladder are unremarkable. Impression: 1.8 cm indeterminate hypoechoic mass versus cyst in the left kidney. Further evaluation is recommended. Velasquez catheter
--- NOTE | 2017-08-07 15:36 | Anethesia Preoperative Eval ---
Anesthesia Pre-op PMH/ROS General Date of Evaluation: Aug 07, 2017 Time of Evaluation: 17:25 Anesthesiologist: Natalie ASA Score: ASA 3 Mallampati Score Class I : Soft palate, uvula, fauces, pillars visible Class II: Soft palate, uvula, fauces visible Class III: Soft palate, base of uvula visible Class IV: Only hard plate visible Mallampati Classification: Class II Surgeon: Abhinav Diagnosis: Sacral Ulcer Surgical Procedure: Debridement, Sacral Ulcer, Bone BX Anesthesia History: none Family History: no anesthesia problems Allergies: Coded Allergies: PENICILLINS (Unverified Allergy, Unknown, 08/05/17) Medications: see eMAR Past Medical History Cardiovascular: Reports: HTN, other - HL Gastrointestinal/Genitourinary: Reports: GERD, other - SBO, Uterine CA Neurologic/Psychiatric: Reports: dementia Endocrine: Reports: DM HEENT: Reports: cataract (L), cataract (R) Hematology/Immune: Reports: anemia, other - Uterine CA Musculoskeletal/Integumentary: Reports: other - Contractures PSxH Narrative: Hysterectomy, Ventral Hernia Anesthesia Pre-op Phys. Exam Physician Exam Last Vital Signs Date Time Temp Pulse Resp B/P (MAP) Pulse Ox O2 Delivery O2 Flow Rate FiO2 08/07/17 12:00 97.8 88 22 124/57 97 Room Air Constitutional: NAD Neurologic: CN 2-12 intact Cardiovascular: RRR Respiratory: CTA Gastrointestinal: S/NT/ND Airway Exam Mallampati Score: Class II MO: limited ROM: limited Teeth: missing Anesthesia Pre-op A/P Labs Hematology Test 08/07/17 07:20 White Blood Count 14.3 K/UL (4.8-10.8) H Red Blood Count 2.92 M/UL (4.20-5.40) L Hemoglobin 8.2 G/DL (12.0-16.0) L Hematocrit 25.6 % (37.0-47.0) L Mean Corpuscular Volume 88 FL (80-99) Mean Corpuscular Hemoglobin 28.2 PG (27.0-31.0) Mean Corpuscular Hemoglobin Concent 32.2 G/DL (32.0-36.0) Red Cell Distribution Width 13.8 % (11.6-14.8) Platelet Count 422 K/UL (150-450) Mean Platelet Volume 6.4 FL (6.5-10.1) L Neutrophils (%) (Auto) 79.9 % (45.0-75.0) H Lymphocytes (%) (Auto) 12.7 % (20.0-45.0) L Monocytes (%) (Auto) 5.8 % (1.0-10.0) Eosinophils (%) (Auto) 1.2 % (0.0-3.0) Basophils (%) (Auto) 0.4 % (0.0-2.0) Chemistry Test 08/07/17 07:20 Sodium Level 142 MMOL/L (136-145) Potassium Level 2.9 MMOL/L (3.5-5.1) L Chloride Level 112 MMOL/L (98-107) H Carbon Dioxide Level 16 MMOL/L (21-32) L Anion Gap 14 mmol/L (5-15) Blood Urea Nitrogen 29 mg/dL (7-18) H Creatinine 1.3 MG/DL (0.55-1.30) Estimat Glomerular Filtration Rate mL/min (>60) Glucose Level 143 MG/DL (74-106) #H Calcium Level 8.0 MG/DL (8.5-10.1) L Phosphorus Level 2.5 MG/DL (2.5-4.9) Magnesium Level 1.7 MG/DL (1.8-2.4) L Total Bilirubin 0.3 MG/DL (0.2-1.0) Aspartate Amino Transf (AST/SGOT) 47 U/L (15-37) H Alanine Aminotransferase (ALT/SGPT) 38 U/L (12-78) Alkaline Phosphatase 180 U/L (46-116) H Total Protein 6.3 G/DL (6.4-8.2) L Albumin 1.3 G/DL (3.4-5.0) L Globulin 5.0 g/dL Albumin/Globulin Ratio 0.3 (1.0-2.7) L Risk Assessment & Plan Assessment: ASA 3 Plan: GA Status Change Before Surgery: No Pre-Antibiotics Drug: Hernan Winston MD Aug 07, 2017 15:36
[2017-08-07 16:00] VITALS: BP 119/52
[2017-08-07] MEDS ORDERED: Morphine Sulfate 4mg/ml Inj IVP PRN (16:00)
[2017-08-07] MEDS ORDERED: Tubing IV Secondary IV ONE (19:40)
--- NOTE | 2017-08-07 19:52 | Infectious Diseases Prog Note ---
Assessment/Plan Assessment/Plan ASSESSMENT: 87 y/o female with: // GPC clusters bacteremia 01/21 ?decub source r/o endocarditis - C&S pending // GNR UTI - C&S pending // Stage IV sacral decubitus ulcer POA, possible osteomyelitis - WCx pending. Seen by plastics, plan debridement, bone biopsy - elevated ESR // Multiple DTI POA // Sepsis // Lactic acidosis - resolved // Leukocytosis - improved // Fever - resolved // Acute encephalopathy, m/l septic, metabolic // ARF on CKD3 - improved // Thrombocytosis // h/o ventral umbilical hernia incarceration - SP exploratory laparotomy, lysis of adhesions, repair of large ventral hernia with mesh 08/20/16 // h/o uterine CA // DM2 // NH resident // Bedbound // PCN allergy - tolerating cefepime // Full Code PLAN: - continue IV vancomycin, cefepime d# 2 - debridement, bone biopsy per plastics - repeat BCx AM, check TTE, CRP - f/u cultures - monitor CBC, temperatures - monitor BMP - wound care Subjective Allergies: Coded Allergies: PENICILLINS (Unverified Allergy, Unknown, 08/05/17) Subjective remains afebrile leukocytosis improved cultures noted Objective Vital Signs Last 24 Hour Vital Signs Date Time Temp Pulse Resp B/P (MAP) Pulse Ox O2 Delivery O2 Flow Rate FiO2 08/07/17 16:00 97.7 92 22 119/52 98 Room Air 08/07/17 16:00 64 08/07/17 12:00 68 08/07/17 12:00 97.8 88 22 124/57 97 Room Air 08/07/17 08:00 76 08/07/17 08:00 97.7 82 22 118/48 96 Room Air 08/07/17 04:38 98.2 79 24 126/55 95 Room Air 08/07/17 04:00 75 08/07/17 00:45 98.1 79 24 124/53 95 Room Air 79 08/07/17 00:00 78 08/06/17 20:52 98.1 81 24 122/54 97 Room Air Height (Feet): 5 Height (Inches): 1.00 Weight (Pounds): 140 General Appearance: no acute distress Respiratory/Chest: no respiratory distress Cardiovascular: normal rate, regular rhythm Abdomen: normal bowel sounds, soft, non tender, non distended Microbiology Date/Time Source Procedure Growth Status 08/05/17 22:30 Blood Blood Culture - Preliminary Resulted 08/05/17 22:15 Blood Blood Culture - Preliminary Resulted 08/05/17 22:28 Urine,Clean Catch Urine Culture - Preliminary Gram Negative Bacillus 1 Resulted Laboratory Tests Test 08/07/17 07:20 08/07/17 10:00 White Blood Count 14.3 K/UL (4.8-10.8) H Red Blood Count 2.92 M/UL (4.20-5.40) L Hemoglobin 8.2 G/DL (12.0-16.0) L Hematocrit 25.6 % (37.0-47.0) L Mean Corpuscular Volume 88 FL (80-99) Mean Corpuscular Hemoglobin 28.2 PG (27.0-31.0) Mean Corpuscular Hemoglobin Concent 32.2 G/DL (32.0-36.0) Red Cell Distribution Width 13.8 % (11.6-14.8) Platelet Count 422 K/UL (150-450) Mean Platelet Volume 6.4 FL (6.5-10.1) L Neutrophils (%) (Auto) 79.9 % (45.0-75.0) H Lymphocytes (%) (Auto) 12.7 % (20.0-45.0) L Monocytes (%) (Auto) 5.8 % (1.0-10.0) Eosinophils (%) (Auto) 1.2 % (0.0-3.0) Basophils (%) (Auto) 0.4 % (0.0-2.0) Sodium Level 142 MMOL/L (136-145) Potassium Level 2.9 MMOL/L (3.5-5.1) L Chloride Level 112 MMOL/L (98-107) H Carbon Dioxide Level 16 MMOL/L (21-32) L Anion Gap 14 mmol/L (5-15) Blood Urea Nitrogen 29 mg/dL (7-18) H Creatinine 1.3 MG/DL (0.55-1.30) Estimat Glomerular Filtration Rate mL/min (>60) Glucose Level 143 MG/DL (74-106) #H Calcium Level 8.0 MG/DL (8.5-10.1) L Phosphorus Level 2.5 MG/DL (2.5-4.9) Magnesium Level 1.7 MG/DL (1.8-2.4) L Total Bilirubin 0.3 MG/DL (0.2-1.0) Aspartate Amino Transf (AST/SGOT) 47 U/L (15-37) H Alanine Aminotransferase (ALT/SGPT) 38 U/L (12-78) Alkaline Phosphatase 180 U/L (46-116) H Total Protein 6.3 G/DL (6.4-8.2) L Albumin 1.3 G/DL (3.4-5.0) L Globulin 5.0 g/dL Albumin/Globulin Ratio 0.3 (1.0-2.7) L Random Vancomycin Level 9.8 ug/mL Prealbumin Pending Current Medications Medications (Trade) Dose Ordered Sig/Hasmukh Route PRN Reason Start Time Stop Time Status Last Admin Dose Admin Acetaminophen (Tylenol) 650 mg Q4H PRN ORAL T>100.5 08/06/17 07:00 09/05/17 06:59 Albuterol/ Ipratropium (DuoNeb 0.5-3(2.5)mg/3ml) 3 ml Q4H PRN HHN Shortness of Breath 08/06/17 07:00 08/11/17 06:59 Cefepime HCl 1 gm/ Dextrose 55 ml @ 110 mls/hr Q24H IVPB 08/06/17 23:00 08/13/17 22:59 08/07/17 00:23 Dextrose (Dextrose 50%) STAT PRN IV Hypoglycemia 08/06/17 07:00 09/05/17 06:59 Heparin Sodium (Porcine) (Heparin 5000 units/ml) 5,000 units EVERY 12 HOURS SUBQ 08/06/17 09:00 09/05/17 08:59 08/07/17 08:32 Insulin Aspart (NovoLOG) BEFORE MEALS AND HS SUBQ 08/06/17 11:30 09/05/17 11:29 08/07/17 17:02 Iron Sucrose 100 mg/Sodium Chloride 60 ml @ 240 mls/hr BEDTIME IV 08/07/17 21:00 08/11/17 21:14 Morphine Sulfate (Morphine Sulfate) 2 mg Q4H PRN IVP Moderate Pain (Pain Scale 4-6) 08/07/17 16:00 08/14/17 15:59 Nitroglycerin (Ntg) 0.4 mg Q5MIN X 3 DOSES PRN SL Prn Chest Pain 08/06/17 07:00 09/05/17 06:59 Ondansetron HCl (Zofran) 4 mg Q6H PRN IVP Nausea & Vomiting 08/06/17 07:00 09/05/17 06:59 Polyethylene Glycol (Miralax) 17 gm DAILYPRN PRN ORAL Constipation 08/06/17 07:00 09/05/17 06:59 Sodium Hypochlorite (Dakin's Half Strength) 1 applic DAILY TOPIC 08/07/17 09:00 09/06/17 08:59 08/07/17 08:30 Sodium Chloride 1,000 ml @ 150 mls/hr Q6H40M IV 08/06/17 07:00 09/05/17 06:59 08/07/17 16:47 Temazepam (Restoril) 15 mg HSPRN PRN ORAL Insomnia 08/06/17 21:00 08/13/17 20:59 Vancomycin HCl (Vanco rx to dose) 1 ea DAILY PRN MISC . 08/06/17 07:00 09/05/17 06:59 Vancomycin HCl 500 mg/Sodium Chloride 110 ml @ 110 mls/hr Q24H IVPB 08/07/17 12:00 08/12/17 11:59 08/07/17 12:08 LYNDSAY GARCÍA Aug 07, 2017 19:52
[2017-08-07 20:53] VITALS: BP 140/58
[2017-08-07] MEDS ORDERED: Iron Sucrose 100 MG in NS 55 ML IV SCH (21:00)
[2017-08-08] VITALS (12 sets, daily range): BP systolic 111–141; BP diastolic 51–67
[2017-08-08] MEDS ORDERED: Nitroglycerin Subl 0.4mg tab SL PRN (00:45)
[2017-08-08] MEDS ORDERED: Albuterol/Ipratropium 3ml neb HHN PRN (03:00)
[2017-08-08] MEDS ORDERED: Morphine Sulfate 4mg/ml Inj IVP PRN (04:00)
[2017-08-08] MEDS: NovoLOG Insulin Flexpen SUBQ SCH ×4 (05:56→21:27)
[2017-08-08] MEDS ORDERED: Miralax 17gm pkt ORAL PRN (07:00)
--- NOTE | 2017-08-08 08:05 | Pulmonology Progress Note ---
Assessment/Plan Assessment/Plan ASSESSMENT sepsis acute encephalopathy ( likely due to sepsis and UTI) UTI HTN anemia Hx of uterine Ca DM sacral decub un-stageable, POA , likely OM of sacral decub multiple DTI POA severe protein calorie malnutrition PLAN OF CARE MS floor IVF abx ID follows fup with cx urine cx + GNB, blood cx 4/4 GPC in clusters renal US monitor renal parameters, lytes plastic surgery eval appreciated patient will benefit from debridement s/p surgery this am wound care as per surgeon recommendation anemia w/up noted on Venofer monitor counts transfuse to keep Hgb above 7.5 DVT prophylaxis Bowel regimen Pain management dietary recommendations noted, on Nabil case discussed and evaluated by supervising physician Subjective Allergies: Coded Allergies: PENICILLINS (Unverified Allergy, Unknown, 08/05/17) Subjective s/p debridement surgery earlier today awake, no signs of distress leucocytosis worse Objective Last 24 Hour Vital Signs Date Time Temp Pulse Resp B/P (MAP) Pulse Ox O2 Delivery O2 Flow Rate FiO2 08/08/17 04:44 98.2 85 21 122/53 95 Room Air 08/08/17 00:00 98.1 95 20 127/60 96 Room Air 08/07/17 20:53 99.1 88 24 140/58 95 Room Air 08/07/17 16:00 97.7 92 22 119/52 98 Room Air 08/07/17 16:00 64 08/07/17 12:00 68 08/07/17 12:00 97.8 88 22 124/57 97 Room Air 08/07/17 08:00 76 08/07/17 08:00 97.7 82 22 118/48 96 Room Air General Appearance: no acute distress HEENT: normocephalic, atraumatic, anicteric Respiratory/Chest: lungs clear, no respiratory distress, chest wall tender Cardiovascular: normal rate, regular rhythm, no gallop/murmur Abdomen: normal bowel sounds, soft, non tender, non distended Skin: other - sacral area with dresing, intact Neurologic/Psychiatric: abnormal gait, other - awake, poorly responsive Musculoskeletal: atrophy - BLE Microbiology Date/Time Source Procedure Growth Status 08/05/17 22:30 Blood Blood Culture - Preliminary Staphylococcus Sp Coag Neg Resulted 08/05/17 22:15 Blood Blood Culture - Preliminary Staphylococcus Sp Coag Neg Resulted 08/05/17 22:28 Urine,Clean Catch Urine Culture - Final Proteus Mirabilis Complete 08/06/17 00:02 Rectum VRE Culture - Final NO VANCOMYCIN RESISTANT ENTEROCOCCUS ... Complete Laboratory Tests 08/07/17 10:00: Prealbumin [Pending] Current Medications Medications (Trade) Dose Ordered Sig/Hasmuhk Route PRN Reason Start Time Stop Time Status Last Admin Dose Admin Acetaminophen (Tylenol) 650 mg Q4H PRN ORAL T>100.5 08/08/17 03:00 09/05/17 06:59 Albuterol/ Ipratropium (DuoNeb 0.5-3(2.5)mg/3ml) 3 ml Q4H PRN HHN Shortness of Breath 08/08/17 03:00 08/11/17 06:59 Cefepime HCl 1 gm/ Dextrose 55 ml @ 110 mls/hr Q24H IVPB 08/08/17 23:00 08/13/17 22:59 Dextrose (Dextrose 50%) STAT PRN IV Hypoglycemia 08/08/17 07:00 09/05/17 06:59 Heparin Sodium (Porcine) (Heparin 5000 units/ml) 5,000 units EVERY 12 HOURS SUBQ 08/08/17 09:00 09/05/17 08:59 Insulin Aspart (NovoLOG) BEFORE MEALS AND HS SUBQ 08/08/17 06:30 09/05/17 11:29 08/08/17 05:56 Iron Sucrose 100 mg/Sodium Chloride 60 ml @ 240 mls/hr BEDTIME IV 08/08/17 21:00 08/11/17 21:01 Morphine Sulfate (Morphine Sulfate) 2 mg Q4H PRN IVP Moderate Pain (Pain Scale 4-6) 08/08/17 04:00 08/14/17 15:59 Nitroglycerin (Ntg) 0.4 mg Q5MIN X 3 DOSES PRN SL Prn Chest Pain 08/08/17 00:45 09/05/17 06:59 Ondansetron HCl (Zofran) 4 mg Q6H PRN IVP Nausea & Vomiting 08/08/17 01:00 09/05/17 06:59 Polyethylene Glycol (Miralax) 17 gm DAILYPRN PRN ORAL Constipation 08/08/17 07:00 09/05/17 06:59 Sodium Hypochlorite (Dakin's Half Strength) 1 applic DAILY TOPIC 08/08/17 09:00 09/06/17 08:59 Sodium Chloride 1,000 ml @ 150 mls/hr Q6H40M IV 08/08/17 00:45 09/05/17 06:59 08/08/17 05:46 Temazepam (Restoril) 15 mg HSPRN PRN ORAL Insomnia 08/08/17 21:00 08/13/17 20:59 Vancomycin HCl (Vanco rx to dose) 1 ea DAILY PRN MISC . 08/08/17 09:00 09/05/17 06:59 Vancomycin HCl 500 mg/Sodium Chloride 110 ml @ 110 mls/hr Q24H IVPB 08/08/17 12:00 08/12/17 11:59 Oswald (Angel)Araceli NP Aug 08, 2017 08:05
[2017-08-08] MEDS: Heparin 5000 units/ml inj SUBQ SCH ×2 (08:29→21:27)
[2017-08-08] MEDS: Dakin's 0.25% (Half Strength) 16oz TOPIC SCH (08:30)
--- NOTE | 2017-08-08 08:30 | Pre-Procedure Note/Attestation ---
Pre-Procedure Note/Attestation Complete Prior to Procedure Planned Procedure: not applicable Procedure Narrative: Debridement of sacral pressure ulcer, deep open bone biopsy of sacrum Indications for Procedure Pre-Operative Diagnosis: Necrotic stage 4 sacral pressure ulcer Attestation I attest that I discussed the nature of the procedure; its benefits; risks and complications; and alternatives (and the risks and benefits of such alternatives ), prior to the procedure, with the patient (or the patient's legal field representative/health education). I attest that, if there was a reasonable possibility of needing a blood transfusion, the patient (or the patient's legal field representative/health education) was given the [facility] standardized written summary, pursuant to the [employer]oc[employer] Blood Safety Act ([place] Health and Safety Code # 1645, as amended). I attest that I re-evaluated the patient just prior to the surgery and that there has been no change in the patient's H&P, except as documented below: KASANDRA MARY Aug 08, 2017 08:30
[2017-08-08] MEDS ORDERED: Sterile Water Irrig 1000ml IRRIG ONE (09:00)
[2017-08-08] MEDS ORDERED: fentaNYL 100 mcg/2 mL IV ONE (09:00)
[2017-08-08] MEDS ORDERED: Lidocaine 1% MPF 10mg/ml 5ml ONE (09:00)
[2017-08-08] MEDS ORDERED: Sodium Chloride 10ml vial INJ ONE (09:00)
[2017-08-08] MEDS ORDERED: NS Irrig 1000ml ONE (09:00)
[2017-08-08] MEDS ORDERED: Midazolam 2mg/2ml Inj ONE (09:00)
[2017-08-08] MEDS ORDERED: Bacitracin 50000 Units Vial ONE (09:06)
[2017-08-08] MEDS ORDERED: NeoSporin Gu Irrig 1ml Amp IRRIG ONE (09:06)
[2017-08-08] MEDS ORDERED: Lidocaine 1% 10mg/ml/Epi 0.005mg/ml 30ml vial INJ ONE (09:06)
--- NOTE | 2017-08-08 09:45 | Infectious Diseases Prog Note ---
Assessment/Plan Assessment/Plan ASSESSMENT: 87 y/o female with: // CoNS in blood Cx 01/21 ? Bacteremia vs contaminant ?decub source r/o endocarditis - // UTI - P Mirabilis // Stage IV sacral decubitus ulcer POA, possible osteomyelitis - WCx pending. SP debridement and bone biopsy - elevated ESR // Multiple DTI POA // Sepsis, SP // Lactic acidosis - resolved // Leukocytosis - improved // Fever - resolved // Acute encephalopathy, m/l septic, metabolic // ARF on CKD3 - improved // Thrombocytosis // h/o ventral umbilical hernia incarceration - SP exploratory laparotomy, lysis of adhesions, repair of large ventral hernia with mesh 08/20/16 // h/o uterine CA // DM2 // NH resident // Bedbound // PCN allergy - tolerating cefepime // Full Code PLAN: - continue IV vancomycin, cefepime d# 3, - , bone biopsy :P - repeat BCx AM, check TTE, CRP - f/u cultures ( Bl, wnd ) - monitor CBC, temperatures - monitor BMP - wound care Subjective Constitutional: Denies: no symptoms, fever, chills, fatigue, anorexia, drenching sweats, other Allergies: Coded Allergies: PENICILLINS (Unverified Allergy, Unknown, 08/05/17) Objective Vital Signs Last 24 Hour Vital Signs Date Time Temp Pulse Resp B/P (MAP) Pulse Ox O2 Delivery O2 Flow Rate FiO2 08/08/17 04:44 98.2 85 21 122/53 95 Room Air 08/08/17 00:00 98.1 95 20 127/60 96 Room Air 08/07/17 20:53 99.1 88 24 140/58 95 Room Air 08/07/17 16:00 97.7 92 22 119/52 98 Room Air 08/07/17 16:00 64 08/07/17 12:00 68 08/07/17 12:00 97.8 88 22 124/57 97 Room Air Height (Feet): 5 Height (Inches): 1.00 Weight (Pounds): 140 HEENT: anicteric Respiratory/Chest: no respiratory distress Cardiovascular: regularly irregular Abdomen: no mass Microbiology Date/Time Source Procedure Growth Status 08/05/17 22:30 Blood Blood Culture - Preliminary Staphylococcus Sp Coag Neg Resulted 08/05/17 22:15 Blood Blood Culture - Preliminary Staphylococcus Sp Coag Neg Resulted 08/07/17 16:10 Urine,Clean Catch Urine Culture - Preliminary Mixed Urogenital Contaminants Resulted 08/06/17 19:30 Urine,Clean Catch Urine Culture - Preliminary Mixed Urogenital Contaminants Resulted 08/05/17 22:28 Urine,Clean Catch Urine Culture - Final Proteus Mirabilis Complete 08/06/17 00:02 Rectum VRE Culture - Final NO VANCOMYCIN RESISTANT ENTEROCOCCUS ... Complete Laboratory Tests Test 08/07/17 10:00 Prealbumin 6 mg/dL (9-32) L Current Medications Medications (Trade) Dose Ordered Sig/Hasmukh Route PRN Reason Start Time Stop Time Status Last Admin Dose Admin Acetaminophen (Tylenol) 650 mg Q4H PRN ORAL T>100.5 08/08/17 03:00 09/05/17 06:59 Albuterol/ Ipratropium (DuoNeb 0.5-3(2.5)mg/3ml) 3 ml Q4H PRN HHN Shortness of Breath 08/08/17 03:00 08/11/17 06:59 Cefepime HCl 1 gm/ Dextrose 55 ml @ 110 mls/hr Q24H IVPB 08/08/17 23:00 08/13/17 22:59 Dextrose (Dextrose 50%) STAT PRN IV Hypoglycemia 08/08/17 07:00 09/05/17 06:59 Heparin Sodium (Porcine) (Heparin 5000 units/ml) 5,000 units EVERY 12 HOURS SUBQ 08/08/17 09:00 09/05/17 08:59 Insulin Aspart (NovoLOG) BEFORE MEALS AND HS SUBQ 08/08/17 06:30 09/05/17 11:29 08/08/17 05:56 Iron Sucrose 100 mg/Sodium Chloride 60 ml @ 240 mls/hr BEDTIME IV 08/08/17 21:00 08/11/17 21:01 Morphine Sulfate (Morphine Sulfate) 2 mg Q4H PRN IVP Moderate Pain (Pain Scale 4-6) 08/08/17 04:00 08/14/17 15:59 Nitroglycerin (Ntg) 0.4 mg Q5MIN X 3 DOSES PRN SL Prn Chest Pain 08/08/17 00:45 09/05/17 06:59 Ondansetron HCl (Zofran) 4 mg Q6H PRN IVP Nausea & Vomiting 08/08/17 01:00 09/05/17 06:59 Polyethylene Glycol (Miralax) 17 gm DAILYPRN PRN ORAL Constipation 08/08/17 07:00 09/05/17 06:59 Sodium Hypochlorite (Dakin's Half Strength) 1 applic DAILY TOPIC 08/08/17 09:00 09/06/17 08:59 Sodium Chloride 1,000 ml @ 150 mls/hr Q6H40M IV 08/08/17 00:45 09/05/17 06:59 08/08/17 05:46 Temazepam (Restoril) 15 mg HSPRN PRN ORAL Insomnia 08/08/17 21:00 08/13/17 20:59 Vancomycin HCl (Vanco rx to dose) 1 ea DAILY PRN MISC . 08/08/17 09:00 09/05/17 06:59 Vancomycin HCl 500 mg/Sodium Chloride 110 ml @ 110 mls/hr Q24H IVPB 08/08/17 12:00 08/12/17 11:59 SIMONA PEREZ M.D. Aug 08, 2017 09:45
[2017-08-08] MEDS ORDERED: Bacitracin Oint 15gm Tube TOPIC ONE (09:54)
--- NOTE | 2017-08-08 10:06 | Immediate Post-Op Evaluation ---
Immediate Post-Op Evalulation Immediate Post-Op Evalulation Procedure: I&D of sacral decubitus ulcer Date of Evaluation: Aug 08, 2017 Time of Evaluation: 10:08 IV Fluids: 200 Blood Products: 0 Estimated Blood Loss: min Urinary Output: 0 Blood Pressure Systolic: 128 Blood Pressure Diastolic: 58 Pulse Rate: 103 Respiratory Rate: 17 O2 Sat by Pulse Oximetry: 98 Temperature (Fahrenheit): 98.7 Pain Score (1-10): 0 Nausea: No Vomiting: No Complications 0 Patient Status: awake, reacts, patent Hydration Status: adequate Drug: Ancef 1g Given Within 1 Hr of Incision: Yes Time Given: 09:15 KATHERINE STOREY M.D. Aug 08, 2017 10:06
[2017-08-08] MEDS ORDERED: Hydromorphone 0.5mg/0.5ml inj IVP PRN (10:15)
[2017-08-08] MEDS ORDERED: LORazepam Inj 2mg/ml 1ml IV PRN (10:15)
[2017-08-08] MEDS ORDERED: DiphenhydrAMINE 50mg/ml Inj IVP PRN (10:15)
[2017-08-08] MEDS ORDERED: fentaNYL 100 mcg/2 mL IV PRN (10:15)
[2017-08-08] MEDS: Vancomycin 500 MG in NS 110 ML IVPB SCH (11:52)
[2017-08-08 13:51] LABS: MEAN CORPUSCULAR HEMOGLOBIN 28.3 PG (27.0-31.0); MEAN CORPUSCULAR HGB CONC 31.7 G/DL (32.0-36.0); MEAN CORPUSCULAR VOLUME 89 FL (80-99); MEAN PLATELET VOLUME 6.5 FL (6.5-10.1); PLATELET COUNT 428 K/UL (150-450); RED BLOOD COUNT 3.37 M/UL (4.20-5.40); RED CELL DISTRIBUTION WIDTH 14.1 % (11.6-14.8); WHITE BLOOD COUNT 18.1 K/UL (4.8-10.8)
[2017-08-08 14:00] LABS: INR 1.1 (0.9-1.1); PROTHROMBIN TIME 11.6 SEC (9.30-11.50)
[2017-08-08 14:15] LABS: BAND NEUTROPHILS % (MANUAL) 0 % (0-8); BASOPHILS % (MANUAL) 0 % (0-2); EOSINOPHILS % (MANUAL) 0 % (0-3); HYPOCHROMASIA 1+; LYMPHOCYTES % (MANUAL) 10 % (20-45); NEUTROPHILS % (MANUAL) 84 % (45-75); PLATELET ESTIMATE ADEQUATE; PLATELET MORPHOLOGY NORMAL; TOTAL CELLS COUNTED 100
[2017-08-08 14:30] LABS: ALANINE AMINOTRANSFERASE 37 U/L (12-78); ALBUMIN/GLOBULIN RATIO 0.3 (1.0-2.7); ANION GAP 12 mmol/L (5-15); ASPARTATE AMINO TRANSFERASE 37 U/L (15-37); CALCIUM 8.1 MG/DL (8.5-10.1); CARBON DIOXIDE 16 MMOL/L (21-32); CHLORIDE 113 MMOL/L (98-107); CREATININE 1.3 MG/DL (0.55-1.30); MAGNESIUM 1.7 MG/DL (1.8-2.4); PHOSPHORUS 2.9 MG/DL (2.5-4.9); POTASSIUM 3.8 MMOL/L (3.5-5.1); SODIUM 141 MMOL/L (136-145); TOTAL PROTEIN 6.8 G/DL (6.4-8.2)
--- NOTE | 2017-08-08 14:51 | Cardiology Report ---
APPROVED REPORT EXAM: Two-dimensional and M-mode echocardiogram with Doppler and color Doppler. INDICATION Endocarditis M-Mode DIMENSIONS IVSd0.7 (0.7-1.1cm)Left Atrium (MM)3.4 (1.6-4.0cm) LVDd3.5 (3.5-5.6cm)Aortic Root3.6 (2.0-3.7cm) PWd0.8 (0.7-1.1cm)Aortic Cusp Exc.2.3 (1.5-2.0cm) LVDs2.0 (2.5-4.0cm) PWs1.6 cm Normal left ventricular chamber size, systolic function and wall motion. Left ventricular ejection fraction estimated to be 55 %. No evidence of left ventricular hypertrophy. Anterior Echo-free space, may be due to pericardial fat or effusion. Mild bi-atrial enlargement. Right ventricular chamber size within normal limits. Heavy focal aortic valve sclerosis with adequate cusp excursion. Mildly thickened mitral valve leaflets with normal excursion. Heavy mitral annulus and aortic root calcification. Normal pulmonic valve structure. Normal tricuspid valve structure. IVC dilated at 2.3 cm without physiologic collapse, estimated RAP is 15 mmHg. A color flow and spectral Doppler study was performed and revealed: Moderate aortic regurgitation. Mild mitral regurgitation. Mitral diastolic velocities suggest reduced left ventricular relaxation c/w mild LV diastolic dysfunction (Grade I ). Mild tricuspid regurgitation. Tricuspid systolic velocities suggests peak right ventricular systolic pressure of 45 mmHg, consistent with moderate pulmonary hypertension. Mild to moderate pulmonic regurgitation present.
--- NOTE | 2017-08-08 17:00 | Operative Note - Dictated ---
DATE OF OPERATION: 08/08/2017 SURGEON: Laz La M.D. ANESTHESIOLOGIST: Dr. Tripp Osullivan. PREOPERATIVE DIAGNOSIS: Necrotic stage 4 sacral pressure ulcer. POSTOPERATIVE DIAGNOSIS: Necrotic stage 4 sacral pressure ulcer. OPERATION: Excisional debridement of necrotic stage 4 sacral pressure ulcer down to muscle, deep open bone biopsy of the sacrum. ANESTHESIA: General anesthesia. OPERATIVE INDICATIONS: This is an 87-year-old female, who is seen in consultation for necrotic sacral pressure ulcer. She had some slough and necrotic tissue as well as exposed bone that needed to be debrided. This needed to be done in the operating setting. Once informed consent was obtained from the son, the patient was scheduled for the surgery. OPERATIVE PROCEDURE: The patient was brought to the operating room and placed on the operating table in supine position. Once SCDs were placed on bilateral lower extremities, general anesthesia was induced. She was then placed in the left lateral decubitus position. The beanbag was inflated. All pressure points were padded. At this point, the area was prepped and draped in usual sterile fashion and then 10 mL of 1% lidocaine with 1:200,000 epinephrine was injected into the ulcer. Inside of the ulcer was colored with a marker to delineate the area for excision. Then using a #15-blade, sharp excisional debridement down to the muscle was performed removing all the unhealthy and nonviable tissue. Following this, the bone that was visible and palpable was rongeured and sent for culture as well as pathology for osteomyelitis. Two liters of triple antibiotic solution was then pulse irrigated into the wound and hemostasis was carefully obtained with electrocautery. The wound at this point appeared healthy at the base measured 7 x 6 x 2 cm. It was packed with saline soaked Kerlix and covered with gauze and foam tape. The patient was then placed in the supine position, extubated, and taken to the recovery room in stable condition. There were no complications. EBL was minimal. The patient tolerated the procedure well. Laz La M.D. DR: Alicia JOB#: [id number] CC:
[2017-08-08] MEDS: Iron Sucrose 100 MG in NS 55 ML IV SCH (21:21)
[2017-08-08] MEDS: Cefepime HCl 1 GM in D5W 55 ML IVPB SCH (23:11)
[2017-08-09] VITALS: BP 111/52
[2017-08-09 04:00] VITALS: BP 118/66
[2017-08-09] MEDS: NovoLOG Insulin Flexpen SUBQ SCH ×4 (06:17→21:11)
[2017-08-09 07:37] LABS: BASOPHILS % (AUTO) 0.5 % (0.0-2.0); EOSINOPHILS % (AUTO) 0.7 % (0.0-3.0); LYMPHOCYTES % (AUTO) 10.6 % (20.0-45.0); MEAN CORPUSCULAR HEMOGLOBIN 28.5 PG (27.0-31.0); MEAN CORPUSCULAR HGB CONC 31.7 G/DL (32.0-36.0); MEAN CORPUSCULAR VOLUME 90 FL (80-99); MONOCYTES % (AUTO) 5.1 % (1.0-10.0); NEUTROPHILS % (AUTO) 83.1 % (45.0-75.0); PLATELET COUNT 404 K/UL (150-450); RED BLOOD COUNT 3.07 M/UL (4.20-5.40); RED CELL DISTRIBUTION WIDTH 14.5 % (11.6-14.8); WHITE BLOOD COUNT 13.8 K/UL (4.8-10.8)
--- NOTE | 2017-08-09 08:02 | Pulmonology Progress Note ---
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 monitor renal parameters, lytes , stable ARF resolved, creat down to normal replace K , check K and Mg in am s/p debridement 08/08 wound care as per surgeon recommendation anemia w/up noted on Venofer monitor counts transfuse to keep Hgb above 7.5 DVT prophylaxis Bowel regimen Pain management dietary recommendations noted, on Nabil case discussed and evaluated by supervising physician Subjective Allergies: Coded Allergies: PENICILLINS (Unverified Allergy, Unknown, 08/05/17) Subjective leukocytosis trending down, afebrile K-3.3 s no signs of distress Objective Last 24 Hour Vital Signs Date Time Temp Pulse Resp B/P (MAP) Pulse Ox O2 Delivery O2 Flow Rate FiO2 08/09/17 04:00 98.4 73 20 118/66 100 Nasal Cannula 2.0 08/09/17 00:00 98.1 69 20 111/52 98 Nasal Cannula 2.0 69 08/08/17 20:06 98 18 Nasal Cannula 2.0 28 08/08/17 20:00 98.2 78 20 120/61 98 Simple Mask 2.0 08/08/17 16:00 98.1 68 17 132/60 99 Nasal Cannula 2.0 08/08/17 12:00 97.3 89 18 121/67 98 Nasal Cannula 3.0 08/08/17 10:50 98.0 92 19 124/56 99 Nasal Cannula 3.0 08/08/17 10:35 96 19 141/54 99 Nasal Cannula 3.0 08/08/17 10:20 98 19 135/61 99 Simple Mask 8.0 08/08/17 10:12 103 20 141/66 97 Simple Mask 8.0 08/08/17 10:07 105 20 119/57 97 Simple Mask 8.0 08/08/17 10:06 103 17 98 08/08/17 10:02 98.1 108 20 128/58 97 Simple Mask 8.0 08/08/17 09:38 80 16 Room Air 21 Objective General Appearance: no acute distress HEENT: normocephalic, atraumatic, anicteric Respiratory/Chest: lungs clear, no respiratory distress, chest wall tender Cardiovascular: normal rate, regular rhythm, no gallop/murmur Abdomen: normal bowel sounds, soft, non tender, non distended Skin: other - sacral area with dresing, intact Neurologic/Psychiatric: abnormal gait, other - awake, poorly responsive Musculoskeletal: atrophy - BLE Microbiology Date/Time Source Procedure Growth Status 08/07/17 16:10 Urine,Clean Catch Urine Culture - Final Mixed Urogenital Contaminants Complete 08/06/17 19:30 Urine,Clean Catch Urine Culture - Final Mixed Urogenital Contaminants Complete 08/08/17 09:50 Sacral Wound Gram Stain - Final Resulted 08/08/17 09:50 Sacral Wound Aerobic Culture Pending Resulted 08/06/17 19:30 Sacral Wound Gram Stain - Final Resulted 08/06/17 19:30 Wound Culture - Preliminary Gram Negative Bacillus 1 Resulted Laboratory Tests 08/08/17 13:20: White Blood Count 18.1H, Red Blood Count 3.37L, Hemoglobin 9.5L, Hematocrit 30.0L, Mean Corpuscular Volume 89, Mean Corpuscular Hemoglobin 28.3, Mean Corpuscular Hemoglobin Concent 31.7L, Red Cell Distribution Width 14.1, Platelet Count 428, Mean Platelet Volume 6.5, Neutrophils (%) (Auto) , Lymphocytes (%) (Auto) , Monocytes (%) (Auto) , Eosinophils (%) (Auto) , Basophils (%) (Auto) , Differential Total Cells Counted 100, Neutrophils % ( Manual) 84H, Lymphocytes % (Manual) 10L, Monocytes % (Manual) 6, Eosinophils % ( Manual) 0, Basophils % (Manual) 0, Band Neutrophils 0, Platelet Estimate Adequate, Platelet Morphology Normal, Hypochromasia 1+, Prothrombin Time 11.6H, Prothromb Time International Ratio 1.1, Activated Partial Thromboplast Time 34H , Sodium Level 141, Potassium Level 3.8, Chloride Level 113H, Carbon Dioxide Level 16L, Anion Gap 12, Blood Urea Nitrogen 19H, Creatinine 1.3, Estimat Glomerular Filtration Rate , Glucose Level 196H, Calcium Level 8.1L, Phosphorus Level 2.9, Magnesium Level 1.7L, Total Bilirubin 0.4, Aspartate Amino Transf ( AST/SGOT) 37, Alanine Aminotransferase (ALT/SGPT) 37, Alkaline Phosphatase 209H , C-Reactive Protein, Quantitative 23.0H, Total Protein 6.8, Albumin 1.4L, Globulin 5.4, Albumin/Globulin Ratio 0.3L 08/09/17 05:00: White Blood Count 13.8H, Red Blood Count 3.07L, Hemoglobin 8.7L, Hematocrit 27.6L, Mean Corpuscular Volume 90, Mean Corpuscular Hemoglobin 28.5, Mean Corpuscular Hemoglobin Concent 31.7L, Red Cell Distribution Width 14.5, Platelet Count 404, Mean Platelet Volume 6.0L, Neutrophils (%) (Auto) 83.1H, Lymphocytes (%) (Auto) 10.6L, Monocytes (%) (Auto) 5.1, Eosinophils (%) (Auto) 0.7, Basophils (%) (Auto) 0.5, Sodium Level [Pending], Potassium Level [Pending] , Chloride Level [Pending], Carbon Dioxide Level [Pending], Blood Urea Nitrogen [Pending], Creatinine [Pending], Estimat Glomerular Filtration Rate [Pending], Glucose Level [Pending], Calcium Level [Pending] Current Medications Medications (Trade) Dose Ordered Sig/Hasmukh Route PRN Reason Start Time Stop Time Status Last Admin Dose Admin Acetaminophen (Tylenol) 650 mg Q4H PRN ORAL T>100.5 08/08/17 03:00 09/05/17 06:59 Albuterol/ Ipratropium (DuoNeb 0.5-3(2.5)mg/3ml) 3 ml Q4H PRN HHN Shortness of Breath 08/08/17 03:00 08/11/17 06:59 Cefepime HCl 1 gm/ Dextrose 55 ml @ 110 mls/hr Q24H IVPB 08/08/17 23:00 08/13/17 22:59 08/08/17 23:11 Dextrose (Dextrose 50%) STAT PRN IV Hypoglycemia 08/08/17 07:00 09/05/17 06:59 Heparin Sodium (Porcine) (Heparin 5000 units/ml) 5,000 units EVERY 12 HOURS SUBQ 08/08/17 09:00 09/05/17 08:59 08/08/17 21:27 Insulin Aspart (NovoLOG) BEFORE MEALS AND HS SUBQ 08/08/17 06:30 09/05/17 11:29 08/09/17 06:17 Iron Sucrose 100 mg/Sodium Chloride 60 ml @ 240 mls/hr BEDTIME IV 08/08/17 21:00 08/11/17 21:01 08/08/17 21:21 Morphine Sulfate (Morphine Sulfate) 2 mg Q4H PRN IVP Moderate Pain (Pain Scale 4-6) 08/08/17 04:00 08/14/17 15:59 Nitroglycerin (Ntg) 0.4 mg Q5MIN X 3 DOSES PRN SL Prn Chest Pain 08/08/17 00:45 09/05/17 06:59 Ondansetron HCl (Zofran) 4 mg Q6H PRN IVP Nausea & Vomiting 08/08/17 01:00 09/05/17 06:59 Polyethylene Glycol (Miralax) 17 gm DAILYPRN PRN ORAL Constipation 08/08/17 07:00 09/05/17 06:59 Sodium Hypochlorite (Dakin's Half Strength) 1 applic DAILY TOPIC 08/08/17 09:00 09/06/17 08:59 Sodium Chloride 1,000 ml @ 150 mls/hr Q6H40M IV 08/08/17 00:45 09/05/17 06:59 08/09/17 03:25 Temazepam (Restoril) 15 mg HSPRN PRN ORAL Insomnia 08/08/17 21:00 08/13/17 20:59 Vancomycin HCl (Vanco rx to dose) 1 ea DAILY PRN MISC . 08/08/17 09:00 09/05/17 06:59 Vancomycin HCl 500 mg/Sodium Chloride 110 ml @ 110 mls/hr Q24H IVPB 08/08/17 12:00 08/12/17 11:59 08/08/17 11:52 Araceli Akers NP (Vanchtein) Aug 09, 2017 08:02
[2017-08-09 08:17] LABS: ANION GAP 14 mmol/L (5-15); CALCIUM 7.9 MG/DL (8.5-10.1); CARBON DIOXIDE 14 MMOL/L (21-32); CHLORIDE 115 MMOL/L (98-107); CREATININE 1.2 MG/DL (0.55-1.30); POTASSIUM 3.3 MMOL/L (3.5-5.1); SODIUM 143 MMOL/L (136-145)
[2017-08-09 08:41] VITALS: BP 118/56
[2017-08-09] MEDS: Dakin's 0.25% (Half Strength) 16oz TOPIC SCH (08:51)
[2017-08-09] MEDS: Heparin 5000 units/ml inj SUBQ SCH ×2 (08:53→21:11)
[2017-08-09] MEDS ORDERED: Tubing IV Secondary IV ONE ×2 (09:20→16:34)
[2017-08-09] MEDS ORDERED: Tubing IV Blood Pump IV ONE (09:30)
[2017-08-09] MEDS ORDERED: NS 500ML IV ONE (09:30)
[2017-08-09 11:26] VITALS: BP 110/48
[2017-08-09] MEDS: Vancomycin 500 MG in NS 110 ML IVPB SCH (11:33)
[2017-08-09] MEDS ORDERED: KCl 10% 40mEq/30ml liquid NG ONE (12:15)
--- NOTE | 2017-08-09 14:52 | Infectious Diseases Prog Note ---
Assessment/Plan Assessment/Plan A; Sepsis Sacral press ulcer s/p I &D Suspected sacral OM UTI DM type 2 Anemia P; Continue Vancomycin & Cefepime will f/u cultures Subjective ROS Limited/Unobtainable: Yes Allergies: Coded Allergies: PENICILLINS (Unverified Allergy, Unknown, 08/05/17) Objective Vital Signs Last 24 Hour Vital Signs Date Time Temp Pulse Resp B/P (MAP) Pulse Ox O2 Delivery O2 Flow Rate FiO2 08/09/17 11:26 97.9 76 21 110/48 98 Nasal Cannula 2.0 08/09/17 08:41 97.7 72 21 118/56 99 Nasal Cannula 2.0 08/09/17 08:15 98 20 Room Air 2.0 21 08/09/17 04:00 98.4 73 20 118/66 100 Nasal Cannula 2.0 08/09/17 00:00 98.1 69 20 111/52 98 Nasal Cannula 2.0 69 08/08/17 20:06 98 18 Nasal Cannula 2.0 28 08/08/17 20:00 98.2 78 20 120/61 98 Simple Mask 2.0 08/08/17 16:00 98.1 68 17 132/60 99 Nasal Cannula 2.0 Height (Feet): 5 Height (Inches): 1.00 Weight (Pounds): 140 General Appearance: no acute distress HEENT: mucous membranes moist Respiratory/Chest: lungs clear Cardiovascular: normal rate Abdomen: soft, non tender Extremities: no edema Neurologic/Psychiatric: other - sleeping Microbiology Date/Time Source Procedure Growth Status 08/07/17 16:10 Urine,Clean Catch Urine Culture - Final Mixed Urogenital Contaminants Complete 08/06/17 19:30 Urine,Clean Catch Urine Culture - Final Mixed Urogenital Contaminants Complete 08/08/17 09:50 Sacral Wound Gram Stain - Final Resulted 08/08/17 09:50 Sacral Wound Aerobic Culture - Preliminary NO GROWTH AFTER 24 HOURS Resulted 08/06/17 19:30 Sacral Wound Gram Stain - Final Resulted 08/06/17 19:30 Wound Culture - Preliminary Klebsiella Pneumoniae Gram Negative Bacillus 2 Usual Skin Maureen Resulted Laboratory Tests Test 08/09/17 05:00 08/09/17 10:45 White Blood Count 13.8 K/UL (4.8-10.8) H Red Blood Count 3.07 M/UL (4.20-5.40) L Hemoglobin 8.7 G/DL (12.0-16.0) L Hematocrit 27.6 % (37.0-47.0) L Mean Corpuscular Volume 90 FL (80-99) Mean Corpuscular Hemoglobin 28.5 PG (27.0-31.0) Mean Corpuscular Hemoglobin Concent 31.7 G/DL (32.0-36.0) L Red Cell Distribution Width 14.5 % (11.6-14.8) Platelet Count 404 K/UL (150-450) Mean Platelet Volume 6.0 FL (6.5-10.1) L Neutrophils (%) (Auto) 83.1 % (45.0-75.0) H Lymphocytes (%) (Auto) 10.6 % (20.0-45.0) L Monocytes (%) (Auto) 5.1 % (1.0-10.0) Eosinophils (%) (Auto) 0.7 % (0.0-3.0) Basophils (%) (Auto) 0.5 % (0.0-2.0) Sodium Level 143 MMOL/L (136-145) Potassium Level 3.3 MMOL/L (3.5-5.1) L Chloride Level 115 MMOL/L (98-107) H Carbon Dioxide Level 14 MMOL/L (21-32) L Anion Gap 14 mmol/L (5-15) Blood Urea Nitrogen 17 mg/dL (7-18) Creatinine 1.2 MG/DL (0.55-1.30) Estimat Glomerular Filtration Rate mL/min (>60) Glucose Level 177 MG/DL (74-106) H Calcium Level 7.9 MG/DL (8.5-10.1) L Vancomycin Level Trough 9.0 ug/mL (5.0-12.0) Current Medications Medications (Trade) Dose Ordered Sig/Hasmukh Route PRN Reason Start Time Stop Time Status Last Admin Dose Admin Acetaminophen (Tylenol) 650 mg Q4H PRN ORAL T>100.5 08/08/17 03:00 09/05/17 06:59 Albuterol/ Ipratropium (DuoNeb 0.5-3(2.5)mg/3ml) 3 ml Q4H PRN HHN Shortness of Breath 08/08/17 03:00 08/11/17 06:59 Cefepime HCl 1 gm/ Dextrose 55 ml @ 110 mls/hr Q24H IVPB 08/08/17 23:00 08/13/17 22:59 08/08/17 23:11 Dextrose (Dextrose 50%) STAT PRN IV Hypoglycemia 08/08/17 07:00 09/05/17 06:59 Heparin Sodium (Porcine) (Heparin 5000 units/ml) 5,000 units EVERY 12 HOURS SUBQ 08/08/17 09:00 09/05/17 08:59 08/09/17 08:53 Insulin Aspart (NovoLOG) BEFORE MEALS AND HS SUBQ 08/08/17 06:30 09/05/17 11:29 08/09/17 11:39 Iron Sucrose 100 mg/Sodium Chloride 60 ml @ 240 mls/hr BEDTIME IV 08/08/17 21:00 08/11/17 21:01 08/08/17 21:21 Morphine Sulfate (Morphine Sulfate) 2 mg Q4H PRN IVP Moderate Pain (Pain Scale 4-6) 08/08/17 04:00 08/14/17 15:59 Nitroglycerin (Ntg) 0.4 mg Q5MIN X 3 DOSES PRN SL Prn Chest Pain 08/08/17 00:45 09/05/17 06:59 Ondansetron HCl (Zofran) 4 mg Q6H PRN IVP Nausea & Vomiting 08/08/17 01:00 09/05/17 06:59 Polyethylene Glycol (Miralax) 17 gm DAILYPRN PRN ORAL Constipation 08/08/17 07:00 09/05/17 06:59 Sodium Hypochlorite (Dakin's Half Strength) 1 applic DAILY TOPIC 08/08/17 09:00 09/06/17 08:59 08/09/17 08:51 Sodium Chloride 1,000 ml @ 150 mls/hr Q6H40M IV 08/08/17 00:45 09/05/17 06:59 08/09/17 10:10 Temazepam (Restoril) 15 mg HSPRN PRN ORAL Insomnia 08/08/17 21:00 08/13/17 20:59 Vancomycin HCl (Vanco rx to dose) 1 ea DAILY PRN MISC . 08/08/17 09:00 09/05/17 06:59 Vancomycin HCl 500 mg/Sodium Chloride 110 ml @ 110 mls/hr Q24H IVPB 08/08/17 12:00 08/09/17 15:00 08/09/17 11:33 Vancomycin/Sodium Chloride 250 ml @ 166.667 mls/hr Q24H IVPB 08/10/17 12:00 08/15/17 11:59 CAIT SAUL Aug 09, 2017 14:52
[2017-08-09 16:05] VITALS: BP 112/49
[2017-08-09 20:00] VITALS: BP 103/42
[2017-08-09] MEDS: Iron Sucrose 100 MG in NS 55 ML IV SCH (21:10)
[2017-08-09] MEDS: Cefepime HCl 1 GM in D5W 55 ML IVPB SCH (22:00)
[2017-08-10] VITALS: BP 105/56
[2017-08-10 03:45] VITALS: BP 127/78
[2017-08-10] MEDS: NovoLOG Insulin Flexpen SUBQ SCH ×4 (06:06→20:21)
[2017-08-10 07:57] LABS: BASOPHILS % (AUTO) 0.6 % (0.0-2.0); EOSINOPHILS % (AUTO) 1.6 % (0.0-3.0); LYMPHOCYTES % (AUTO) 12.6 % (20.0-45.0); MEAN CORPUSCULAR HEMOGLOBIN 28.8 PG (27.0-31.0); MEAN CORPUSCULAR HGB CONC 32.1 G/DL (32.0-36.0); MEAN CORPUSCULAR VOLUME 90 FL (80-99); MEAN PLATELET VOLUME 5.6 FL (6.5-10.1); MONOCYTES % (AUTO) 6.9 % (1.0-10.0); NEUTROPHILS % (AUTO) 78.4 % (45.0-75.0); PLATELET COUNT 399 K/UL (150-450); RED BLOOD COUNT 2.93 M/UL (4.20-5.40); RED CELL DISTRIBUTION WIDTH 14.6 % (11.6-14.8); WHITE BLOOD COUNT 13.3 K/UL (4.8-10.8)
--- NOTE | 2017-08-10 08:01 | Pulmonology Progress Note ---
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 recommended further eval CT A/P in am monitor renal parameters, lytes , stable ARF resolved, creat down to normal replace K and Mg check lytes in am s/p debridement 08/08 wound care as per surgeon recommendation anemia w/up noted on Venofer monitor counts transfuse to keep Hgb above 7.5 DVT prophylaxis Bowel regimen Pain management dietary recommendations noted, on Nabil case discussed and evaluated by supervising physician Subjective Allergies: Coded Allergies: PENICILLINS (Unverified Allergy, Unknown, 08/05/17) Subjective no signs of distress low K and Mg Objective Last 24 Hour Vital Signs Date Time Temp Pulse Resp B/P (MAP) Pulse Ox O2 Delivery O2 Flow Rate FiO2 08/10/17 07:36 84 16 Room Air 21 08/10/17 03:45 96.8 66 20 127/78 99 Room Air 08/10/17 00:00 97.9 65 20 105/56 98 Nasal Cannula 2.0 08/09/17 20:43 88 18 Room Air 2.0 21 08/09/17 20:00 98.2 67 19 103/42 98 Nasal Cannula 08/09/17 16:05 98.2 72 21 112/49 97 Nasal Cannula 2.0 08/09/17 11:26 97.9 76 21 110/48 98 Nasal Cannula 2.0 08/09/17 08:41 97.7 72 21 118/56 99 Nasal Cannula 2.0 08/09/17 08:15 98 20 Room Air 2.0 21 Objective General Appearance: no acute distress HEENT: normocephalic, atraumatic, anicteric Respiratory/Chest: lungs clear, no respiratory distress, chest wall tender Cardiovascular: normal rate, regular rhythm, no gallop/murmur Abdomen: normal bowel sounds, soft, non tender, non distended Skin: other - sacral area with dresing, intact Neurologic/Psychiatric: abnormal gait, other - awake, poorly responsive Musculoskeletal: atrophy - BLE Microbiology Date/Time Source Procedure Growth Status 08/08/17 13:25 Blood Blood Culture - Preliminary NO GROWTH AFTER 24 HOURS Resulted 08/08/17 13:20 Blood Blood Culture - Preliminary NO GROWTH AFTER 24 HOURS Resulted 08/07/17 16:10 Urine,Clean Catch Urine Culture - Final Mixed Urogenital Contaminants Complete 08/08/17 09:50 Sacral Wound Gram Stain - Final Resulted 08/08/17 09:50 Sacral Wound Aerobic Culture - Preliminary NO GROWTH AFTER 24 HOURS Resulted Laboratory Tests 08/09/17 10:45: Vancomycin Level Trough 9.0 08/10/17 05:20: White Blood Count [Pending], Red Blood Count [Pending], Hemoglobin [Pending], Hematocrit [Pending], Mean Corpuscular Volume [Pending], Mean Corpuscular Hemoglobin [Pending], Mean Corpuscular Hemoglobin Concent [Pending], Red Cell Distribution Width [Pending], Platelet Count [Pending], Mean Platelet Volume [ Pending], Neutrophils (%) (Auto) [Pending], Lymphocytes (%) (Auto) [Pending], Monocytes (%) (Auto) [Pending], Eosinophils (%) (Auto) [Pending], Basophils (%) (Auto) [Pending], Sodium Level [Pending], Potassium Level [Pending], Chloride Level [Pending], Carbon Dioxide Level [Pending], Blood Urea Nitrogen [Pending], Creatinine [Pending], Estimat Glomerular Filtration Rate [Pending], Glucose Level [Pending], Calcium Level [Pending], Magnesium Level [Pending] Current Medications Medications (Trade) Dose Ordered Sig/Hasmukh Route PRN Reason Start Time Stop Time Status Last Admin Dose Admin Acetaminophen (Tylenol) 650 mg Q4H PRN ORAL T>100.5 08/08/17 03:00 09/05/17 06:59 Albuterol/ Ipratropium (DuoNeb 0.5-3(2.5)mg/3ml) 3 ml Q4H PRN HHN Shortness of Breath 08/08/17 03:00 08/11/17 06:59 Cefepime HCl 1 gm/ Dextrose 55 ml @ 110 mls/hr Q24H IVPB 08/08/17 23:00 08/13/17 22:59 08/09/17 22:00 Dextrose (Dextrose 50%) STAT PRN IV Hypoglycemia 08/08/17 07:00 09/05/17 06:59 Heparin Sodium (Porcine) (Heparin 5000 units/ml) 5,000 units EVERY 12 HOURS SUBQ 08/08/17 09:00 09/05/17 08:59 08/09/17 21:11 Insulin Aspart (NovoLOG) BEFORE MEALS AND HS SUBQ 08/08/17 06:30 09/05/17 11:29 08/10/17 06:06 Iron Sucrose 100 mg/Sodium Chloride 60 ml @ 240 mls/hr BEDTIME IV 08/08/17 21:00 08/11/17 21:01 08/09/17 21:10 Morphine Sulfate (Morphine Sulfate) 2 mg Q4H PRN IVP Moderate Pain (Pain Scale 4-6) 08/08/17 04:00 08/14/17 15:59 Nitroglycerin (Ntg) 0.4 mg Q5MIN X 3 DOSES PRN SL Prn Chest Pain 08/08/17 00:45 09/05/17 06:59 Ondansetron HCl (Zofran) 4 mg Q6H PRN IVP Nausea & Vomiting 08/08/17 01:00 09/05/17 06:59 Polyethylene Glycol (Miralax) 17 gm DAILYPRN PRN ORAL Constipation 08/08/17 07:00 09/05/17 06:59 Sodium Hypochlorite (Dakin's Half Strength) 1 applic DAILY TOPIC 08/08/17 09:00 09/06/17 08:59 08/09/17 08:51 Sodium Chloride 1,000 ml @ 150 mls/hr Q6H40M IV 08/08/17 00:45 09/05/17 06:59 08/10/17 05:52 Temazepam (Restoril) 15 mg HSPRN PRN ORAL Insomnia 08/08/17 21:00 08/13/17 20:59 Vancomycin HCl (Vanco rx to dose) 1 ea DAILY PRN MISC . 08/08/17 09:00 09/05/17 06:59 Vancomycin/Sodium Chloride 250 ml @ 166.667 mls/hr Q24H IVPB 08/10/17 12:00 08/15/17 11:59 Oswald (Angel)Araceli NP Aug 10, 2017 08:01
[2017-08-10 08:03] LABS: ANION GAP 14 mmol/L (5-15); CALCIUM 7.7 MG/DL (8.5-10.1); CARBON DIOXIDE 14 MMOL/L (21-32); CHLORIDE 114 MMOL/L (98-107); CREATININE 1.3 MG/DL (0.55-1.30); MAGNESIUM 1.5 MG/DL (1.8-2.4); POTASSIUM 3.3 MMOL/L (3.5-5.1); SODIUM 142 MMOL/L (136-145)
[2017-08-10 08:15] VITALS: BP 102/67
[2017-08-10] MEDS: Heparin 5000 units/ml inj SUBQ SCH ×2 (08:40→20:21)
[2017-08-10] MEDS ORDERED: Tubing IV Secondary IV ONE ×2 (08:52→17:20)
[2017-08-10] MEDS ORDERED: KCl 10% 40mEq/30ml liquid NG ONE (10:45)
[2017-08-10] MEDS ORDERED: Albuterol/Ipratropium 3ml neb HHN PRN (11:00)
[2017-08-10 11:25] VITALS: BP 128/60
--- NOTE | 2017-08-10 12:48 | Infectious Diseases Prog Note ---
Assessment/Plan Assessment/Plan A; Sepsis Sacral press ulcer s/p I &D Suspected sacral OM UTI DM type 2 Anemia P; Continue Vancomycin & Cefepime will f/u cultures Subjective ROS Limited/Unobtainable: Yes Allergies: Coded Allergies: PENICILLINS (Unverified Allergy, Unknown, 08/05/17) Objective Vital Signs Last 24 Hour Vital Signs Date Time Temp Pulse Resp B/P (MAP) Pulse Ox O2 Delivery O2 Flow Rate FiO2 08/10/17 11:25 97.9 78 21 128/60 95 Room Air 08/10/17 08:15 97.7 76 21 102/67 97 Room Air 08/10/17 07:36 84 16 Room Air 21 08/10/17 03:45 96.8 66 20 127/78 99 Room Air 08/10/17 00:00 97.9 65 20 105/56 98 Nasal Cannula 2.0 08/09/17 20:43 88 18 Room Air 2.0 21 08/09/17 20:00 98.2 67 19 103/42 98 Nasal Cannula 08/09/17 16:05 98.2 72 21 112/49 97 Nasal Cannula 2.0 Height (Feet): 5 Height (Inches): 1.00 Weight (Pounds): 140 General Appearance: no acute distress HEENT: mucous membranes moist Respiratory/Chest: lungs clear Cardiovascular: normal rate Abdomen: soft, non tender Extremities: no edema Skin: ulcers Microbiology Date/Time Source Procedure Growth Status 08/08/17 13:25 Blood Blood Culture - Preliminary NO GROWTH AFTER 24 HOURS Resulted 08/08/17 13:20 Blood Blood Culture - Preliminary NO GROWTH AFTER 24 HOURS Resulted 08/07/17 16:10 Urine,Clean Catch Urine Culture - Final Mixed Urogenital Contaminants Complete 08/08/17 09:50 Sacral Wound Gram Stain - Final Resulted 08/08/17 09:50 Sacral Wound Aerobic Culture - Preliminary Resulted Laboratory Tests Test 08/10/17 05:20 White Blood Count 13.3 K/UL (4.8-10.8) H Red Blood Count 2.93 M/UL (4.20-5.40) L Hemoglobin 8.4 G/DL (12.0-16.0) L Hematocrit 26.3 % (37.0-47.0) L Mean Corpuscular Volume 90 FL (80-99) Mean Corpuscular Hemoglobin 28.8 PG (27.0-31.0) Mean Corpuscular Hemoglobin Concent 32.1 G/DL (32.0-36.0) Red Cell Distribution Width 14.6 % (11.6-14.8) Platelet Count 399 K/UL (150-450) Mean Platelet Volume 5.6 FL (6.5-10.1) L Neutrophils (%) (Auto) 78.4 % (45.0-75.0) H Lymphocytes (%) (Auto) 12.6 % (20.0-45.0) L Monocytes (%) (Auto) 6.9 % (1.0-10.0) Eosinophils (%) (Auto) 1.6 % (0.0-3.0) Basophils (%) (Auto) 0.6 % (0.0-2.0) Sodium Level 142 MMOL/L (136-145) Potassium Level 3.3 MMOL/L (3.5-5.1) L Chloride Level 114 MMOL/L (98-107) H Carbon Dioxide Level 14 MMOL/L (21-32) L Anion Gap 14 mmol/L (5-15) Blood Urea Nitrogen 14 mg/dL (7-18) Creatinine 1.3 MG/DL (0.55-1.30) Estimat Glomerular Filtration Rate mL/min (>60) Glucose Level 164 MG/DL (74-106) H Calcium Level 7.7 MG/DL (8.5-10.1) L Magnesium Level 1.5 MG/DL (1.8-2.4) L Current Medications Medications (Trade) Dose Ordered Sig/Hasmukh Route PRN Reason Start Time Stop Time Status Last Admin Dose Admin Acetaminophen (Tylenol) 650 mg Q4H PRN ORAL T>100.5 08/08/17 03:00 09/05/17 06:59 Albuterol/ Ipratropium (DuoNeb 0.5-3(2.5)mg/3ml) 3 ml Q4H PRN HHN Shortness of Breath 08/10/17 11:00 08/13/17 23:59 Cefepime HCl 1 gm/ Dextrose 55 ml @ 110 mls/hr Q24H IVPB 08/08/17 23:00 08/13/17 22:59 08/09/17 22:00 Dextrose (Dextrose 50%) STAT PRN IV Hypoglycemia 10/20/17 07:00 09/05/17 06:59 Heparin Sodium (Porcine) (Heparin 5000 units/ml) 5,000 units EVERY 12 HOURS SUBQ 08/08/17 09:00 09/05/17 08:59 08/10/17 08:40 Insulin Aspart (NovoLOG) BEFORE MEALS AND HS SUBQ 08/08/17 06:30 09/05/17 11:29 08/10/17 06:06 Iron Sucrose 100 mg/Sodium Chloride 60 ml @ 240 mls/hr BEDTIME IV 08/08/17 21:00 08/11/17 21:01 08/09/17 21:10 Morphine Sulfate (Morphine Sulfate) 2 mg Q4H PRN IVP Moderate Pain (Pain Scale 4-6) 08/08/17 04:00 08/14/17 15:59 Nitroglycerin (Ntg) 0.4 mg Q5MIN X 3 DOSES PRN SL Prn Chest Pain 08/08/17 00:45 09/05/17 06:59 Ondansetron HCl (Zofran) 4 mg Q6H PRN IVP Nausea & Vomiting 08/08/17 01:00 09/05/17 06:59 Polyethylene Glycol (Miralax) 17 gm DAILYPRN PRN ORAL Constipation 08/08/17 07:00 09/05/17 06:59 Sodium Chloride 1,000 ml @ 150 mls/hr Q6H40M IV 08/08/17 00:45 09/05/17 06:59 08/10/17 05:52 Temazepam (Restoril) 15 mg HSPRN PRN ORAL Insomnia 08/08/17 21:00 08/13/17 20:59 Vancomycin HCl (Vanco rx to dose) 1 ea DAILY PRN MISC . 08/08/17 09:00 09/05/17 06:59 Vancomycin/Sodium Chloride 250 ml @ 166.667 mls/hr Q24H IVPB 08/10/17 12:00 08/15/17 11:59 CAIT SAUL Aug 10, 2017 12:48
[2017-08-10] MEDS: Vancomycin 750mg/NS 250ml IVPB SCH (13:01)
[2017-08-10 16:09] VITALS: BP 126/55
[2017-08-10 20:00] VITALS: BP 130/63
[2017-08-10] MEDS: Iron Sucrose 100 MG in NS 55 ML IV SCH (20:19)
[2017-08-10] MEDS: Cefepime HCl 1 GM in D5W 55 ML IVPB SCH (23:14)
[2017-08-11] VITALS: BP 124/61
[2017-08-11 04:00] VITALS: BP 139/77
[2017-08-11] MEDS: NovoLOG Insulin Flexpen SUBQ SCH ×4 (06:30→22:09)
--- NOTE | 2017-08-11 07:03 | Brief Operative Note ---
Immediate Post Operative Note Operative Note Pre-op Diagnosis: Necrotic stage 4 sacral pressure ulcer Procedure: Excisional debridement sacral ulcer, deep open bone biopsy sacrum Post-op Diagnosis: same as pre-op Surgeon: Abhinav Anesthesiologist: Rica Anesthesia: general Specimen: yes Complications: none Condition: stable Fluids: IVF Estimated Blood Loss: minimal Drains: none Implant(s) used?: No KASANDRA MARY Aug 11, 2017 07:03
[2017-08-11 07:53] LABS: ANION GAP 9 mmol/L (5-15); CALCIUM 7.9 MG/DL (8.5-10.1); CARBON DIOXIDE 16 MMOL/L (21-32); CHLORIDE 113 MMOL/L (98-107); CREATININE 1.2 MG/DL (0.55-1.30); SODIUM 138 MMOL/L (136-145)
[2017-08-11 07:56] LABS: BASOPHILS % (AUTO) 0.5 % (0.0-2.0); LYMPHOCYTES % (AUTO) 12.2 % (20.0-45.0); MEAN CORPUSCULAR HEMOGLOBIN 29.5 PG (27.0-31.0); MEAN CORPUSCULAR VOLUME 89 FL (80-99); MEAN PLATELET VOLUME 6.2 FL (6.5-10.1); NEUTROPHILS % (AUTO) 80.4 % (45.0-75.0); PLATELET COUNT 443 K/UL (150-450); RED BLOOD COUNT 3.04 M/UL (4.20-5.40); RED CELL DISTRIBUTION WIDTH 14.3 % (11.6-14.8)
[2017-08-11 08:00] VITALS: BP 121/72
[2017-08-11] MEDS: Heparin 5000 units/ml inj SUBQ SCH ×2 (08:45→22:08)
--- NOTE | 2017-08-11 10:50 | Infectious Diseases Prog Note ---
Assessment/Plan Assessment/Plan ASSESSMENT: 87 y/o female with: // CoNS in blood Cx 01/21 ? Bacteremia vs contaminant ?decub source r/o endocarditis - 08/05 Bcx 01/21 CoNS, 08/08 Bcx NTD 08/08 TTE: no vegetations seen. Mod AR, mild MR, mild TR, mild-mod SD // UTI - P Mirabilis (Gill S) // Stage IV sacral decubitus ulcer POA, possible osteomyelitis - SP debridement and bone biopsy 08/08, wound cx and path pending 08/07 wound cx (superficial): +3 K PnA (R Amp), +3 P. mirabilis (gill S), +3 skin arcelia - elevated ESR // Multiple DTI POA // Sepsis, SP // Lactic acidosis - resolved // Leukocytosis - persistent // Fever - resolved // Acute encephalopathy, m/l septic, metabolic // ARF on CKD3 - improved // Thrombocytosis // h/o ventral umbilical hernia incarceration - SP exploratory laparotomy, lysis of adhesions, repair of large ventral hernia with mesh 08/20/16 // h/o uterine CA // DM2 // NH resident // Bedbound // PCN allergy - tolerating cefepime // Full Code PLAN: - continue IV vancomycin #6 pending bone cultures -Switch Cefepime to Ceftriaxone base on profile sensitivity (abx #6) - , bone biopsy cultures:P - f/u repeat Bcx - monitor CBC, temperatures - monitor BMP - wound care Discussed with RN. Subjective Allergies: Coded Allergies: PENICILLINS (Unverified Allergy, Unknown, 08/05/17) Subjective afebrile Objective Vital Signs Last 24 Hour Vital Signs Date Time Temp Pulse Resp B/P (MAP) Pulse Ox O2 Delivery O2 Flow Rate FiO2 08/11/17 08:00 98.2 90 18 121/72 97 08/11/17 04:00 99.1 89 20 139/77 96 Room Air 89 08/11/17 00:00 98.1 79 20 124/61 96 Room Air 08/10/17 20:40 55 16 Room Air 21 08/10/17 20:00 98.2 85 20 130/63 96 Room Air 08/10/17 16:09 97.6 73 21 126/55 95 Room Air 08/10/17 11:25 97.9 78 21 128/60 95 Room Air Height (Feet): 5 Height (Inches): 1.00 Weight (Pounds): 140 Objective General Appearance: no acute distress HEENT: mucous membranes moist Respiratory/Chest: lungs clear Cardiovascular: normal rate Abdomen: soft, non tender Extremities: no edema Skin: ulcers Microbiology Date/Time Source Procedure Growth Status 08/08/17 13:25 Blood Blood Culture - Preliminary NO GROWTH AFTER 48 HOURS Resulted 08/08/17 13:20 Blood Blood Culture - Preliminary NO GROWTH AFTER 48 HOURS Resulted Laboratory Tests Test 08/11/17 05:40 White Blood Count 15.0 K/UL (4.8-10.8) H Red Blood Count 3.04 M/UL (4.20-5.40) L Hemoglobin 9.0 G/DL (12.0-16.0) L Hematocrit 27.2 % (37.0-47.0) L Mean Corpuscular Volume 89 FL (80-99) Mean Corpuscular Hemoglobin 29.5 PG (27.0-31.0) Mean Corpuscular Hemoglobin Concent 33.0 G/DL (32.0-36.0) Red Cell Distribution Width 14.3 % (11.6-14.8) Platelet Count 443 K/UL (150-450) Mean Platelet Volume 6.2 FL (6.5-10.1) L Neutrophils (%) (Auto) 80.4 % (45.0-75.0) H Lymphocytes (%) (Auto) 12.2 % (20.0-45.0) L Monocytes (%) (Auto) 6.0 % (1.0-10.0) Eosinophils (%) (Auto) 1.0 % (0.0-3.0) Basophils (%) (Auto) 0.5 % (0.0-2.0) Sodium Level 138 MMOL/L (136-145) Potassium Level 3.0 MMOL/L (3.5-5.1) L Chloride Level 113 MMOL/L (98-107) H Carbon Dioxide Level 16 MMOL/L (21-32) L Anion Gap 9 mmol/L (5-15) Blood Urea Nitrogen 12 mg/dL (7-18) Creatinine 1.2 MG/DL (0.55-1.30) Estimat Glomerular Filtration Rate mL/min (>60) Glucose Level 144 MG/DL (74-106) H Calcium Level 7.9 MG/DL (8.5-10.1) L Magnesium Level 1.9 MG/DL (1.8-2.4) Current Medications Medications (Trade) Dose Ordered Sig/Hasmkuh Route PRN Reason Start Time Stop Time Status Last Admin Dose Admin Acetaminophen (Tylenol) 650 mg Q4H PRN ORAL T>100.5 08/08/17 03:00 09/05/17 06:59 Albuterol/ Ipratropium (DuoNeb 0.5-3(2.5)mg/3ml) 3 ml Q4H PRN HHN Shortness of Breath 08/10/17 11:00 08/13/17 23:59 Cefepime HCl 1 gm/ Dextrose 55 ml @ 110 mls/hr Q24H IVPB 08/08/17 23:00 08/13/17 22:59 08/10/17 23:14 Dextrose (Dextrose 50%) STAT PRN IV Hypoglycemia 08/08/17 07:00 09/05/17 06:59 Heparin Sodium (Porcine) (Heparin 5000 units/ml) 5,000 units EVERY 12 HOURS SUBQ 08/08/17 09:00 09/05/17 08:59 08/11/17 08:45 Insulin Aspart (NovoLOG) BEFORE MEALS AND HS SUBQ 08/08/17 06:30 09/05/17 11:29 08/10/17 20:21 Iron Sucrose 100 mg/Sodium Chloride 60 ml @ 240 mls/hr BEDTIME IV 08/08/17 21:00 08/11/17 21:01 08/10/17 20:19 Morphine Sulfate (Morphine Sulfate) 2 mg Q4H PRN IVP Moderate Pain (Pain Scale 4-6) 08/08/17 04:00 08/14/17 15:59 Nitroglycerin (Ntg) 0.4 mg Q5MIN X 3 DOSES PRN SL Prn Chest Pain 08/08/17 00:45 09/05/17 06:59 Ondansetron HCl (Zofran) 4 mg Q6H PRN IVP Nausea & Vomiting 08/08/17 01:00 09/05/17 06:59 Polyethylene Glycol (Miralax) 17 gm DAILYPRN PRN ORAL Constipation 08/08/17 07:00 09/05/17 06:59 Sodium Chloride 1,000 ml @ 150 mls/hr Q6H40M IV 08/08/17 00:45 09/05/17 06:59 08/11/17 08:44 Temazepam (Restoril) 15 mg HSPRN PRN ORAL Insomnia 08/08/17 21:00 08/13/17 20:59 Vancomycin HCl (Vanco rx to dose) 1 ea DAILY PRN MISC . 08/08/17 09:00 09/05/17 06:59 Vancomycin/Sodium Chloride 250 ml @ 166.667 mls/hr Q24H IVPB 08/10/17 12:00 08/15/17 11:59 08/10/17 13:01 Kallie Barry M.D. Aug 11, 2017 10:50
[2017-08-11 12:00] VITALS: BP 129/52
[2017-08-11] MEDS: Vancomycin 750mg/NS 250ml IVPB SCH (12:37)
--- NOTE | 2017-08-11 13:13 | Diagnostic Imaging Report ---
Indication: Abdominal pain, sepsis and bacteremia of urinary tract infection, history of uterine percent, Technique: Spiral acquisitions obtained through the abdomen and pelvis. Patient given oral contrast. No IV contrast utilized, per referring physician request.. Multiplanar reconstructions were generated. Total dose length product 920 mGycm. CTDIvol(s) 17 mGy. Dose reduction achieved using automated exposure control Comparison: 08/18/2016 Findings: There is evidence of extensive osseous erosion of the pubic symphysis, extending to a slight extent into the bilateral inferior pubic rami.. There are gas bubbles both within the bone and within the immediately adjacent soft tissue. There is surrounding soft tissue thickening, particularly along the fascial plane, but no definite associated fluid collection. These findings are new since the prior study. There is bladder wall thickening, and the bladder appears immediately contiguous with the eroded portions of the pubic symphysis. A Velasquez catheter is present within the bladder. The bladder is incompletely distended despite this There is a large soft tissue defect adjacent to the coccyx, not evident previously. The cortical surface of the coccyx may be exposed. There may be some erosive changes of the coccyx as well. There has been interim development of fairly extensive edema of the subcutaneous fat. Previously demonstrated large ventral hernia is no longer evident. There is evidence of a small bowel anastomosis of the anterior abdominal small bowel, and some diastasis of the rectus abdominis tendon without jett herniation. The distal esophagus is somewhat contrast-filled, otherwise unremarkable. The stomach, duodenum are unremarkable. Contrast is seen to traverse the entirety of the small bowel and reached the colon. There is some dilatation of small bowel in the region of the anastomotic zeina, but no other significant small bowel distention is demonstrated. There is wall thickening of the rectum. No evidence of diverticulosis or diverticulitis. No free intraperitoneal air or fluid is evident. Lack of IV contrast limits assessment of the solid organs. The liver is unremarkable. The gallbladder is surgically absent. Pancreas is unremarkable. The spleen demonstrates an accessory splenule, is otherwise unremarkable. The adrenals are normal. The kidneys are slightly atrophic. No definite focal renal abnormality, hydronephrosis, or hydroureter. There is an inferior vena cava filter again demonstrated. There are bilateral pleural effusions, moderate on the right, small on the left. There is resultant basilar compressive atelectasis. The bones demonstrate degenerative spondylosis, in addition to the findings reported previously. Impression: Evidence of osseous destruction of the pubic symphysis consistent with osteomyelitis. Presence of gas bubbles indicate likely infection by gas-forming organism. Contiguity with the bladder suggested this could be extension of adjacent cystitis, but this could also be a separate process. Possible bladder wall thickening, could indicate cystitis. There is a Velasquez catheter present Large sacrococcygeal decubitus ulcer. Coccyx likely exposed, osteomyelitis certainly a possibility Previously demonstrated ventral hernia no longer evident, presumably surgically repaired. There is also evidence of a small bowel anastomosis. Rectal wall thickening, could indicate proctitis.. However, similarity to prior exam raises possibility that this is baseline for this patient Bilateral pleural effusions, right greater than left, not evident previously edema consistent with anasarca, also not evident previously Generalized edema of the subcutaneous fat, consistent with anasarca Other findings as noted, including surgically absent gallbladder, inferior vena cava filter, degenerative spondylosis, basilar compressive pulmonary atelectasis Findings discussed -- by phone with Dr. Carbajal at the time of interpretation The CT scanner at [facility] is accredited by the [employer] and the scans are performed using protocols designed to limit radiation exposure to as low as reasonably achievable to attain images of sufficient resolution adequate for diagnostic evaluation.
--- NOTE | 2017-08-11 13:46 | Pulmonology Progress Note ---
Assessment/Plan Problems: (1) Sepsis (2) Encephalopathy acute (3) HTN (hypertension) (4) Anemia (5) History of uterine cancer Assessment/Plan tolerated debridement CT scan reviewe venofer IV K supplement continue abx by ID wound care. Subjective ROS Limited/Unobtainable: No Interval Events: tolerated the debridement Allergies: Coded Allergies: PENICILLINS (Unverified Allergy, Unknown, 08/05/17) Objective Last 24 Hour Vital Signs Date Time Temp Pulse Resp B/P (MAP) Pulse Ox O2 Delivery O2 Flow Rate FiO2 08/11/17 08:00 98.2 90 18 121/72 97 08/11/17 04:00 99.1 89 20 139/77 96 Room Air 89 08/11/17 00:00 98.1 79 20 124/61 96 Room Air 08/10/17 20:40 55 16 Room Air 21 08/10/17 20:00 98.2 85 20 130/63 96 Room Air 08/10/17 16:09 97.6 73 21 126/55 95 Room Air General Appearance: WD/WN HEENT: normocephalic, atraumatic Respiratory/Chest: chest wall non-tender, lungs clear Breasts: no masses Cardiovascular: normal peripheral pulses, normal rate Abdomen: normal bowel sounds, no organomegaly Genitourinary: normal external genitalia Extremities: no clubbing Skin: no rash Laboratory Tests 08/11/17 05:40: White Blood Count 15.0H, Red Blood Count 3.04L, Hemoglobin 9.0L, Hematocrit 27.2L, Mean Corpuscular Volume 89, Mean Corpuscular Hemoglobin 29.5, Mean Corpuscular Hemoglobin Concent 33.0, Red Cell Distribution Width 14.3, Platelet Count 443, Mean Platelet Volume 6.2L, Neutrophils (%) (Auto) 80.4H, Lymphocytes (%) (Auto) 12.2L, Monocytes (%) (Auto) 6.0, Eosinophils (%) (Auto) 1.0, Basophils (%) (Auto) 0.5, Sodium Level 138, Potassium Level 3.0L, Chloride Level 113H, Carbon Dioxide Level 16L, Anion Gap 9, Blood Urea Nitrogen 12, Creatinine 1.2, Estimat Glomerular Filtration Rate , Glucose Level 144H, Calcium Level 7.9L, Magnesium Level 1.9 Current Medications Medications (Trade) Dose Ordered Sig/Hasmukh Route PRN Reason Start Time Stop Time Status Last Admin Dose Admin Acetaminophen (Tylenol) 650 mg Q4H PRN ORAL T>100.5 08/08/17 03:00 09/05/17 06:59 Albuterol/ Ipratropium (DuoNeb 0.5-3(2.5)mg/3ml) 3 ml Q4H PRN HHN Shortness of Breath 08/10/17 11:00 08/13/17 23:59 Ceftriaxone Sodium 2 gm/ Sodium Chloride 110 ml @ 220 mls/hr Q24H IVPB 08/11/17 22:00 08/18/17 21:59 Dextrose (Dextrose 50%) STAT PRN IV Hypoglycemia 08/08/17 07:00 09/05/17 06:59 Heparin Sodium (Porcine) (Heparin 5000 units/ml) 5,000 units EVERY 12 HOURS SUBQ 08/08/17 09:00 09/05/17 08:59 08/11/17 08:45 Insulin Aspart (NovoLOG) BEFORE MEALS AND HS SUBQ 08/08/17 06:30 09/05/17 11:29 08/11/17 11:59 Iron Sucrose 100 mg/Sodium Chloride 60 ml @ 240 mls/hr BEDTIME IV 08/08/17 21:00 08/11/17 21:01 08/10/17 20:19 Morphine Sulfate (Morphine Sulfate) 2 mg Q4H PRN IVP Moderate Pain (Pain Scale 4-6) 08/08/17 04:00 08/14/17 15:59 Nitroglycerin (Ntg) 0.4 mg Q5MIN X 3 DOSES PRN SL Prn Chest Pain 08/08/17 00:45 09/05/17 06:59 Ondansetron HCl (Zofran) 4 mg Q6H PRN IVP Nausea & Vomiting 08/08/17 01:00 09/05/17 06:59 Polyethylene Glycol (Miralax) 17 gm DAILYPRN PRN ORAL Constipation 08/08/17 07:00 09/05/17 06:59 Sodium Chloride 1,000 ml @ 150 mls/hr Q6H40M IV 08/08/17 00:45 09/05/17 06:59 08/11/17 08:44 Temazepam (Restoril) 15 mg HSPRN PRN ORAL Insomnia 08/08/17 21:00 08/13/17 20:59 Vancomycin HCl (Vanco rx to dose) 1 ea DAILY PRN MISC . 08/08/17 09:00 09/05/17 06:59 Vancomycin/Sodium Chloride 250 ml @ 166.667 mls/hr Q24H IVPB 08/10/17 12:00 08/15/17 11:59 08/11/17 12:37 MELISSA ARDON Aug 11, 2017 13:46
[2017-08-11] MEDS ORDERED: KCl 10% 40mEq/30ml liquid NG ONE (14:00)
[2017-08-11 20:00] VITALS: BP 132/63
[2017-08-11] MEDS: Iron Sucrose 100 MG in NS 55 ML IV SCH (22:00)
[2017-08-11] MEDS: cefTRIAXone 2 GM in NS 110 ML IVPB SCH (22:31)
[2017-08-12] VITALS: BP 131/97
[2017-08-12 04:00] VITALS: BP 115/74
[2017-08-12] MEDS: NovoLOG Insulin Flexpen SUBQ SCH ×4 (06:23→20:26)
[2017-08-12 08:15] VITALS: BP 127/89
[2017-08-12] MEDS: Heparin 5000 units/ml inj SUBQ SCH ×2 (08:59→20:27)
--- NOTE | 2017-08-12 10:31 | 48 Hour Post Anesthesia Eval ---
Post Anesthesia Evaluation Procedure: I&D of sacral decubitus ulcer Date of Evaluation: Aug 12, 2017 Time of Evaluation: 11:00 Blood Pressure Systolic: 123 0: 68 Pulse Rate: 82 Respiratory Rate: 16 Temperature (Fahrenheit): 98 O2 Sat by Pulse Oximetry: 99 Airway: patent Nausea: No Vomiting: No Hydration Status: adequate Mental Status/LOC: patient returned to baseline Follow-up care needed: patient intructions given Colby Lopez M.D. Aug 12, 2017 10:31
[2017-08-12] MEDS: Vancomycin 750mg/NS 250ml IVPB SCH (11:59)
[2017-08-12 12:15] VITALS: BP 117/58
--- NOTE | 2017-08-12 12:26 | Infectious Diseases Prog Note ---
Assessment/Plan Assessment/Plan ASSESSMENT: 87 y/o female with: // CoNS in blood Cx 01/21 ? Bacteremia vs contaminant ?decub source r/o endocarditis - 08/05 Bcx 01/21 CoNS, 08/08 Bcx NTD 08/08 TTE: no vegetations seen. Mod AR, mild MR, mild TR, mild-mod NC // UTI - P Mirabilis (Gill S) // Stage IV sacral decubitus ulcer POA, w/ osteomyelitis - SP debridement and bone biopsy 08/08 08/08 (OR) wound cx : GPC (id and sensi pendign) path pending -OR findings: slough and necrotic tissue as well as exposed bone. sharp excisional debridement down to the muscle was performed removing all the unhealthy and nonviable tissue. Following this, the bone that was visible and palpable was rongeured and sent for culture as well as pathology for osteomyelitis. 08/07 wound cx (superficial): +3 K PnA (R Amp), +3 P. mirabilis (gill S), +3 skin arcelia - elevated ESR -CT abd/p 08/11: Evidence of osseous destruction of the pubic symphysis consistent with osteomyelitis. Presence of gas bubbles indicate likely infection by gas-forming organism. Contiguity with the bladder suggested this could be extension of adjacent cystitis, but this could also be a separate process. Possible bladder wall thickening, could indicate cystitis. There is a Velasquez catheter present. Large sacrococcygeal decubitus ulcer. Coccyx likely exposed, osteomyelitis certainly a possibility. Previously demonstrated ventral hernia no longer evident, presumably surgically repaired. There is also evidence of a small bowel anastomosis. Rectal wall thickening, could indicate proctitis.. However, similarity to prior exam raises possibility that this is baseline for this patient. Bilateral pleural effusions, right greater than left , not evident previously edema consistent with anasarca, also not evident previously. 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 - improved // Thrombocytosis // h/o ventral umbilical hernia incarceration - SP exploratory laparotomy, lysis of adhesions, repair of large ventral hernia with mesh 08/20/16 // h/o uterine CA // DM2 // NH resident // Bedbound // PCN allergy - tolerating cefepime // Full Code PLAN: - continue IV vancomycin #7 pending bone cultures -Continue Ceftriaxone (abx #7) for UTI, sacral ulcer -s/p 6d Cefepime 08/11 - , bone biopsy cultures and path:P -will likely need 6 weeks of IV abx given CT findings - f/u repeat Bcx - monitor CBC, temperatures - monitor BMP - wound care Discussed with RN. Subjective Allergies: Coded Allergies: PENICILLINS (Unverified Allergy, Unknown, 08/05/17) Subjective afebrile Objective Vital Signs Last 24 Hour Vital Signs Date Time Temp Pulse Resp B/P (MAP) Pulse Ox O2 Delivery O2 Flow Rate FiO2 08/12/17 10:31 82 16 99 08/12/17 08:15 99.9 112 19 127/89 99 Nasal Cannula 2.0 08/12/17 07:28 89 16 Nasal Cannula 2.0 28 08/12/17 07:28 Nasal Cannula 2.0 28 08/12/17 04:00 98.6 67 19 115/74 97 Room Air 08/12/17 00:00 99.7 87 20 131/97 98 Simple Mask 3.0 08/11/17 20:02 67 16 Nasal Cannula 2.0 28 08/11/17 20:02 97 Nasal Cannula 3.0 32 08/11/17 20:02 Nasal Cannula 3.0 32 08/11/17 20:00 100.0 90 20 132/63 97 Nasal Cannula 3.0 90 Height (Feet): 5 Height (Inches): 1.00 Weight (Pounds): 140 Objective General Appearance: no acute distress HEENT: mucous membranes moist Respiratory/Chest: lungs clear Cardiovascular: normal rate Abdomen: soft, non tender Extremities: no edema Skin: ulcers reviewed reviewed Current Medications Medications (Trade) Dose Ordered Sig/Hasmukh Route PRN Reason Start Time Stop Time Status Last Admin Dose Admin Acetaminophen (Tylenol) 650 mg Q4H PRN ORAL T>100.5 08/08/17 03:00 09/05/17 06:59 08/12/17 11:59 Albuterol/ Ipratropium (DuoNeb 0.5-3(2.5)mg/3ml) 3 ml Q4H PRN HHN Shortness of Breath 08/10/17 11:00 08/13/17 23:59 Ceftriaxone Sodium 2 gm/ Sodium Chloride 110 ml @ 220 mls/hr Q24H IVPB 08/11/17 22:00 08/18/17 21:59 08/11/17 22:31 Dextrose (Dextrose 50%) STAT PRN IV Hypoglycemia 08/08/17 07:00 09/05/17 06:59 Heparin Sodium (Porcine) (Heparin 5000 units/ml) 5,000 units EVERY 12 HOURS SUBQ 08/08/17 09:00 09/05/17 08:59 08/12/17 08:59 Insulin Aspart (NovoLOG) BEFORE MEALS AND HS SUBQ 08/08/17 06:30 09/05/17 11:29 08/12/17 06:23 Morphine Sulfate (Morphine Sulfate) 2 mg Q4H PRN IVP Moderate Pain (Pain Scale 4-6) 08/08/17 04:00 08/14/17 15:59 Nitroglycerin (Ntg) 0.4 mg Q5MIN X 3 DOSES PRN SL Prn Chest Pain 08/08/17 00:45 09/05/17 06:59 Ondansetron HCl (Zofran) 4 mg Q6H PRN IVP Nausea & Vomiting 08/08/17 01:00 09/05/17 06:59 Polyethylene Glycol (Miralax) 17 gm DAILYPRN PRN ORAL Constipation 08/08/17 07:00 09/05/17 06:59 Sodium Chloride 1,000 ml @ 150 mls/hr Q6H40M IV 08/08/17 00:45 09/05/17 06:59 08/12/17 11:48 Temazepam (Restoril) 15 mg HSPRN PRN ORAL Insomnia 08/08/17 21:00 08/13/17 20:59 Vancomycin HCl (Vanco rx to dose) 1 ea DAILY PRN MISC . 08/08/17 09:00 09/05/17 06:59 Vancomycin/Sodium Chloride 250 ml @ 166.667 mls/hr Q24H IVPB 08/10/17 12:00 08/15/17 11:59 08/12/17 11:59 Kallie Barry M.D. Aug 12, 2017 12:26
--- NOTE | 2017-08-12 15:01 | Pulmonology Progress Note ---
Assessment/Plan Problems: (1) Sepsis (2) Encephalopathy acute (3) HTN (hypertension) (4) Anemia (5) History of uterine cancer Assessment/Plan tolerated debridement CT scan reviewe venofer IV K supplement continue abx by ID wound care. will need 6 weeks of IV abx ( as per ID suggestion) dc to long term when cultures are back and WBC is lower Subjective ROS Limited/Unobtainable: No Constitutional: Reports: no symptoms Respiratory: Reports: no symptoms Cardiovascular: Reports: no symptoms Allergies: Coded Allergies: PENICILLINS (Unverified Allergy, Unknown, 08/05/17) Objective Last 24 Hour Vital Signs Date Time Temp Pulse Resp B/P (MAP) Pulse Ox O2 Delivery O2 Flow Rate FiO2 08/12/17 12:58 99.0 08/12/17 12:15 100.6 80 20 117/58 97 Room Air 08/12/17 10:31 82 16 99 08/12/17 08:15 99.9 112 19 127/89 99 Nasal Cannula 2.0 08/12/17 07:28 89 16 Nasal Cannula 2.0 28 08/12/17 07:28 Nasal Cannula 2.0 28 08/12/17 04:00 98.6 67 19 115/74 97 Room Air 08/12/17 00:00 99.7 87 20 131/97 98 Simple Mask 3.0 08/11/17 20:02 67 16 Nasal Cannula 2.0 28 08/11/17 20:02 97 Nasal Cannula 3.0 32 08/11/17 20:02 Nasal Cannula 3.0 32 08/11/17 20:00 100.0 90 20 132/63 97 Nasal Cannula 3.0 90 Intake and Output 08/12/17 08/13/17 19:00 07:00 Intake Total 390 ml Balance 390 ml Intake Oral 240 ml IV Total 150 ml General Appearance: WD/WN HEENT: normocephalic, atraumatic Respiratory/Chest: chest wall non-tender, lungs clear Breasts: no masses Cardiovascular: normal peripheral pulses Extremities: no cyanosis, no clubbing Skin: no rash, no lesions Current Medications Medications (Trade) Dose Ordered Sig/Hasmukh Route PRN Reason Start Time Stop Time Status Last Admin Dose Admin Acetaminophen (Tylenol) 650 mg Q4H PRN ORAL T>100.5 08/08/17 03:00 09/05/17 06:59 08/12/17 11:59 Albuterol/ Ipratropium (DuoNeb 0.5-3(2.5)mg/3ml) 3 ml Q4H PRN HHN Shortness of Breath 08/10/17 11:00 08/13/17 23:59 Ceftriaxone Sodium 2 gm/ Sodium Chloride 110 ml @ 220 mls/hr Q24H IVPB 08/11/17 22:00 08/18/17 21:59 08/11/17 22:31 Dextrose (Dextrose 50%) STAT PRN IV Hypoglycemia 08/08/17 07:00 09/05/17 06:59 Heparin Sodium (Porcine) (Heparin 5000 units/ml) 5,000 units EVERY 12 HOURS SUBQ 08/08/17 09:00 09/05/17 08:59 08/12/17 08:59 Insulin Aspart (NovoLOG) BEFORE MEALS AND HS SUBQ 08/08/17 06:30 09/05/17 11:29 08/12/17 12:54 Morphine Sulfate (Morphine Sulfate) 2 mg Q4H PRN IVP Moderate Pain (Pain Scale 4-6) 08/08/17 04:00 08/14/17 15:59 Nitroglycerin (Ntg) 0.4 mg Q5MIN X 3 DOSES PRN SL Prn Chest Pain 08/08/17 00:45 09/05/17 06:59 Ondansetron HCl (Zofran) 4 mg Q6H PRN IVP Nausea & Vomiting 08/08/17 01:00 09/05/17 06:59 Polyethylene Glycol (Miralax) 17 gm DAILYPRN PRN ORAL Constipation 08/08/17 07:00 09/05/17 06:59 Sodium Chloride 1,000 ml @ 150 mls/hr Q6H40M IV 08/08/17 00:45 09/05/17 06:59 08/12/17 11:48 Temazepam (Restoril) 15 mg HSPRN PRN ORAL Insomnia 08/08/17 21:00 08/13/17 20:59 Vancomycin HCl (Vanco rx to dose) 1 ea DAILY PRN MISC . 08/08/17 09:00 09/05/17 06:59 Vancomycin/Sodium Chloride 250 ml @ 166.667 mls/hr Q24H IVPB 08/10/17 12:00 08/15/17 11:59 08/12/17 11:59 MELISSA ARDON Aug 12, 2017 15:01
[2017-08-12 15:48] VITALS: BP 116/44
[2017-08-12 20:14] VITALS: BP 119/56
[2017-08-12] MEDS: cefTRIAXone 2 GM in NS 110 ML IVPB SCH (21:20)
[2017-08-13 00:08] VITALS: BP 118/65
[2017-08-13 04:33] VITALS: BP 130/74
[2017-08-13] MEDS: NovoLOG Insulin Flexpen SUBQ SCH ×4 (05:56→21:10)
[2017-08-13 08:00] VITALS: BP 123/52
[2017-08-13 08:38] LABS: BASOPHILS % (AUTO) 0.7 % (0.0-2.0); EOSINOPHILS % (AUTO) 0.9 % (0.0-3.0); LYMPHOCYTES % (AUTO) 8.3 % (20.0-45.0); MEAN CORPUSCULAR HEMOGLOBIN 29.3 PG (27.0-31.0); MEAN CORPUSCULAR HGB CONC 32.9 G/DL (32.0-36.0); MEAN CORPUSCULAR VOLUME 89 FL (80-99); MONOCYTES % (AUTO) 5.3 % (1.0-10.0); NEUTROPHILS % (AUTO) 84.9 % (45.0-75.0); PLATELET COUNT 386 K/UL (150-450); RED BLOOD COUNT 2.78 M/UL (4.20-5.40); RED CELL DISTRIBUTION WIDTH 15.1 % (11.6-14.8); WHITE BLOOD COUNT 17.8 K/UL (4.8-10.8)
[2017-08-13 09:01] LABS: ALANINE AMINOTRANSFERASE 8 U/L (12-78); ALBUMIN/GLOBULIN RATIO 0.2 (1.0-2.7); ANION GAP 14 mmol/L (5-15); ASPARTATE AMINO TRANSFERASE 13 U/L (15-37); CALCIUM 7.7 MG/DL (8.5-10.1); CARBON DIOXIDE 13 MMOL/L (21-32); CHLORIDE 112 MMOL/L (98-107); MAGNESIUM 1.7 MG/DL (1.8-2.4); PHOSPHORUS 2.5 MG/DL (2.5-4.9); SODIUM 139 MMOL/L (136-145); TOTAL PROTEIN 6.2 G/DL (6.4-8.2)
[2017-08-13] MEDS: Heparin 5000 units/ml inj SUBQ SCH ×2 (09:14→21:09)
[2017-08-13 09:23] LABS: CRP QUANT 17.5 mg/dL (0.00-0.90)
[2017-08-13 09:46] LABS: ERYTHROCYTE SEDIMENTATION RATE 136 MM/HR (0-42)
[2017-08-13] MEDS ORDERED: Lidocaine 1% Plain 30 ml INJ ONE (10:15)
[2017-08-13] MEDS ORDERED: Heparin 2000 units/Ns 1000ml INJ ONE (10:15)
--- NOTE | 2017-08-13 10:56 | Infectious Diseases Prog Note ---
Assessment/Plan Assessment/Plan ASSESSMENT: 87 y/o female with: //Low grade and worsening leukocytosis- r/o RAFI, recurrent bacteremia, PNA // CoNS in blood Cx 01/21 ? Bacteremia vs contaminant ?decub source r/o endocarditis - 08/05 Bcx 01/21 CoNS, 08/08 Bcx NTD 08/08 TTE: no vegetations seen. Mod AR, mild MR, mild TR, mild-mod NH // UTI - P Mirabilis (Gill S) // Stage IV sacral decubitus ulcer POA, w/ osteomyelitis - SP debridement and bone biopsy 08/08 08/08 (OR) wound cx : GPC (id and sensi pendign) path pending -OR findings: slough and necrotic tissue as well as exposed bone. sharp excisional debridement down to the muscle was performed removing all the unhealthy and nonviable tissue. Following this, the bone that was visible and palpable was rongeured and sent for culture as well as pathology for osteomyelitis. 08/07 wound cx (superficial): +3 K PnA (R Amp), +3 P. mirabilis (gill S), +3 skin arcelia - elevated ESR -CT abd/p 08/11: Evidence of osseous destruction of the pubic symphysis consistent with osteomyelitis. Presence of gas bubbles indicate likely infection by gas-forming organism. Contiguity with the bladder suggested this could be extension of adjacent cystitis, but this could also be a separate process. Possible bladder wall thickening, could indicate cystitis. There is a Velasquez catheter present. Large sacrococcygeal decubitus ulcer. Coccyx likely exposed, osteomyelitis certainly a possibility. Previously demonstrated ventral hernia no longer evident, presumably surgically repaired. There is also evidence of a small bowel anastomosis. Rectal wall thickening, could indicate proctitis.. However, similarity to prior exam raises possibility that this is baseline for this patient. Bilateral pleural effusions, right greater than left , not evident previously edema consistent with anasarca, also not evident previously. 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 - improved // Thrombocytosis // h/o ventral umbilical hernia incarceration - SP exploratory laparotomy, lysis of adhesions, repair of large ventral hernia with mesh 08/20/16 // h/o uterine CA // DM2 // NH resident // Bedbound // PCN allergy - tolerating cefepime // Full Code PLAN: -Hold discharge as patient febrile, worsenign leukocytosis -obtain CXR, u/a with reflex, 2 sets of Bcx - continue IV vancomycin #8 pending bone cultures -Continue Ceftriaxone (abx #8) for UTI, sacral ulcer -s/p 6d Cefepime 08/11 - , bone biopsy cultures and path:P -will likely need 6 weeks of IV abx given CT findings - f/u repeat Bcx - monitor CBC, temperatures - monitor BMP - wound care Discussed with RN. Subjective Allergies: Coded Allergies: PENICILLINS (Unverified Allergy, Unknown, 08/05/17) Subjective low grade fever yesterday, so far none in almost 24hrs plan for discharge Objective Vital Signs Last 24 Hour Vital Signs Date Time Temp Pulse Resp B/P (MAP) Pulse Ox O2 Delivery O2 Flow Rate FiO2 08/13/17 08:00 98.2 86 24 123/52 97 Room Air 08/13/17 06:51 Nasal Cannula 2.0 28 08/13/17 06:50 98 Nasal Cannula 2.0 28 08/13/17 06:50 80 18 Nasal Cannula 2.0 28 08/13/17 04:33 98.4 89 17 130/74 96 Nasal Cannula 2.0 08/13/17 00:08 98.4 74 17 118/65 97 Nasal Cannula 2.0 08/12/17 21:02 Nasal Cannula 2.0 28 08/12/17 21:02 98 Nasal Cannula 2.0 28 08/12/17 21:02 73 18 Nasal Cannula 2.0 28 08/12/17 20:14 98.1 72 18 119/56 98 Nasal Cannula 2.0 08/12/17 15:48 97.5 75 20 116/44 97 Nasal Cannula 2.0 08/12/17 12:58 99.0 08/12/17 12:15 100.6 80 20 117/58 97 Room Air Height (Feet): 5 Height (Inches): 1.00 Weight (Pounds): 140 Objective General Appearance: no acute distress HEENT: mucous membranes moist Respiratory/Chest: lungs clear Cardiovascular: normal rate Abdomen: soft, non tender Extremities: no edema Skin: ulcers reviewed Laboratory Tests Test 08/13/17 08:05 White Blood Count 17.8 K/UL (4.8-10.8) H Red Blood Count 2.78 M/UL (4.20-5.40) L Hemoglobin 8.1 G/DL (12.0-16.0) L Hematocrit 24.7 % (37.0-47.0) L Mean Corpuscular Volume 89 FL (80-99) Mean Corpuscular Hemoglobin 29.3 PG (27.0-31.0) Mean Corpuscular Hemoglobin Concent 32.9 G/DL (32.0-36.0) Red Cell Distribution Width 15.1 % (11.6-14.8) H Platelet Count 386 K/UL (150-450) Mean Platelet Volume 6.0 FL (6.5-10.1) L Neutrophils (%) (Auto) 84.9 % (45.0-75.0) H Lymphocytes (%) (Auto) 8.3 % (20.0-45.0) L Monocytes (%) (Auto) 5.3 % (1.0-10.0) Eosinophils (%) (Auto) 0.9 % (0.0-3.0) Basophils (%) (Auto) 0.7 % (0.0-2.0) Erythrocyte Sedimentation Rate 136 MM/HR (0-42) H Sodium Level 139 MMOL/L (136-145) Potassium Level 3.0 MMOL/L (3.5-5.1) L Chloride Level 112 MMOL/L (98-107) H Carbon Dioxide Level 13 MMOL/L (21-32) L Anion Gap 14 mmol/L (5-15) Blood Urea Nitrogen 9 mg/dL (7-18) Creatinine 1.0 MG/DL (0.55-1.30) Estimat Glomerular Filtration Rate mL/min (>60) Glucose Level 109 MG/DL (74-106) H Calcium Level 7.7 MG/DL (8.5-10.1) L Phosphorus Level 2.5 MG/DL (2.5-4.9) Magnesium Level 1.7 MG/DL (1.8-2.4) L Total Bilirubin 0.3 MG/DL (0.2-1.0) Aspartate Amino Transf (AST/SGOT) 13 U/L (15-37) L Alanine Aminotransferase (ALT/SGPT) 8 U/L (12-78) L Alkaline Phosphatase 140 U/L (46-116) H C-Reactive Protein, Quantitative 17.5 mg/dL (0.00-0.90) H Total Protein 6.2 G/DL (6.4-8.2) L Albumin 1.2 G/DL (3.4-5.0) L Globulin 5.0 g/dL Albumin/Globulin Ratio 0.2 (1.0-2.7) L Current Medications Medications (Trade) Dose Ordered Sig/Hasmukh Route PRN Reason Start Time Stop Time Status Last Admin Dose Admin Acetaminophen (Tylenol) 650 mg Q4H PRN ORAL T>100.5 08/08/17 03:00 09/05/17 06:59 08/12/17 11:59 Albuterol/ Ipratropium (DuoNeb 0.5-3(2.5)mg/3ml) 3 ml Q4H PRN HHN Shortness of Breath 08/10/17 11:00 08/13/17 23:59 Ceftriaxone Sodium 2 gm/ Sodium Chloride 110 ml @ 220 mls/hr Q24H IVPB 08/11/17 22:00 08/18/17 21:59 08/12/17 21:20 Chlorhexidine Gluconate (Sar[place]-Hex 2%) 1 applic DAILY TOPIC 08/14/17 09:00 09/13/17 08:59 UNV Dextrose (Dextrose 50%) STAT PRN IV Hypoglycemia 08/08/17 07:00 09/05/17 06:59 Heparin Sodium (Porcine) (Heparin 5000 units/ml) 5,000 units EVERY 12 HOURS SUBQ 08/08/17 09:00 09/05/17 08:59 08/13/17 09:14 Heparin Sodium/ Sodium Chloride (Heparin 2000 units/Ns 1000ml premix) 2,000 unit ONCE ONCE INJ 08/13/17 10:15 08/13/17 10:16 UNV Insulin Aspart (NovoLOG) BEFORE MEALS AND HS SUBQ 08/08/17 06:30 09/05/17 11:29 08/12/17 20:26 Lidocaine HCl (Xylocaine 1% 30ml) 30 ml ONCE ONCE INJ 08/13/17 10:15 08/13/17 10:16 UNV Morphine Sulfate (Morphine Sulfate) 2 mg Q4H PRN IVP Moderate Pain (Pain Scale 4-6) 08/08/17 04:00 08/14/17 15:59 Nitroglycerin (Ntg) 0.4 mg Q5MIN X 3 DOSES PRN SL Prn Chest Pain 08/08/17 00:45 09/05/17 06:59 Ondansetron HCl (Zofran) 4 mg Q6H PRN IVP Nausea & Vomiting 08/08/17 01:00 09/05/17 06:59 Polyethylene Glycol (Miralax) 17 gm DAILYPRN PRN ORAL Constipation 08/08/17 07:00 09/05/17 06:59 Sodium Chloride 1,000 ml @ 150 mls/hr Q6H40M IV 08/08/17 00:45 09/05/17 06:59 08/13/17 09:12 Temazepam (Restoril) 15 mg HSPRN PRN ORAL Insomnia 08/08/17 21:00 08/13/17 20:59 Vancomycin HCl (Vanco rx to dose) 1 ea DAILY PRN MISC . 08/08/17 09:00 09/05/17 06:59 Vancomycin/Sodium Chloride 250 ml @ 166.667 mls/hr Q24H IVPB 08/10/17 12:00 08/15/17 11:59 08/12/17 11:59 Kallie Barry M.D. Aug 13, 2017 10:56
--- NOTE | 2017-08-13 11:54 | Diagnostic Imaging Report ---
Indication: Shortness of breath Technique: One view of the chest Comparison: 08/05/2017 Findings: Left diaphragm is mildly elevated. There is some atelectasis at the left lung base, decreased from previous. The heart is borderline enlarged. There is equivocal mild interstitial prominence. Pleural effusions demonstrated on recent CT scan are not evident on plain radiograph. Contrast from prior CT scan is seen within the colon Impression: Equivocal mild interstitial congestive changes. Correlate with clinical findings Cardiomegaly
[2017-08-13 12:00] VITALS: BP 111/60
--- NOTE | 2017-08-13 12:15 | Diagnostic Imaging Report ---
Indications: Needs long-term IV access Technique: Ultrasound confirms patent compressible right basilic vein. Total sterile technique, including sterile probe cover and sterile gel, hat, mask,, sterile gown, large sterile drape, and preparation with 2% chlorhexidine utilized. Local anesthesia with 1% lidocaine. Under real-time ultrasound guidance, puncture basilic vein using 21-gauge needle, documented and archived, passage 0.018 guidewire under direct fluoroscopy, which was used to determine appropriate catheter length, exchange for 5 Mongolian peel-away sheath. 5 Mong[place]ian Bard dual-lumen power PICC cut to 42 cm. It was inserted through the peel-away sheath. Peel-away sheath and guidewire removed. Catheter fixed to the skin. Both catheter ports aspirated and flushed. Patient tolerated procedure well, without immediate complication. Digital radiograph documents satisfactory catheter tip position, at the cavoatrial junction. Total fluoroscopy time 0.2 minutes. Total dose area product 6.4 dGycm2 Impression: Successful placement of right arm PICC under sonographic and fluoroscopic guidance, as described above.
[2017-08-13] MEDS: Vancomycin 750mg/NS 250ml IVPB SCH (13:01)
--- NOTE | 2017-08-13 14:16 | Wound Nurse Progress Note ---
Wound RN Progress Note Wound Consult reassessment #1 Sacral unstageable pressure ulcer- S/P debridement noted decrease in black necrotic tissue, follow MD order s/p debridement. #2 Left heel DTI pressure ulcer- remains intact, DTI remains present no further deterioration noted,maroon in color. #3 Right 1st metatarsal head DTI pressure ulcer- remains intact, no further deterioration present maroon in color #4 Right lateral big toe DTI pressure ulcer-remains intact, no further deterioration present maroon in color #5 Left trochanter stage I pressure ulcer- no further deterioration noted, remains as stage 1. #6 Right trochanter DTI pressure ulcer- no further deterioration , remains a deep tissue injury deep maroon color present upon reassessment noted 1. sdti to right 5th metatarsal head extending to 5th toe 2.left upper arm blister. 3. right lateral malleolus sdti. 4.left ear scab/dry. 5.right medial heel sdti 6.right lateral heel sdti. Recommendation -Sacral unstageable pressure ulcer follow S/P debridement order per MD -Local wound care per protocol for DTI's and stage I pressure ulcers -Optimize nutrition -Keep clean and dry -Turn ad reposition -Low air loss mattress -Offload both heels -Heel protector on both heels -Assess and f/u accordingly for any changes GAYLE CASAS Aug 13, 2017 14:16
--- NOTE | 2017-08-13 15:01 | Wound Care Consultation ---
Wound Assessment Wound Assessment #1: Wound Number: 1 Wound Present on Admission: Yes New Wound: No Status Change of Wound: Yes - s/p debridement. Wound Location Body Site Modif: mid Wound Location Body Site: sacral Wound Type: pressure ulcer Thien Test: Does not Thien Pressure Ulcer Stage: IV Wound Thickness: Full Thickness Wound Length: 6.5 Wound Width: 6.5 Wound Depth: 2.0 Percent of Wound [place]/Red: 50 Percent of Wound Bed Yellow/Wh: 30 Percent of Wound Purple/Maroon: 20 Other Colors Identified: surrounding periwound noted maroon in color. Wound Drainage Description: Serosanguineous Wound Drainage Amount: Moderate Wound Drainage Odor: Mild Odor Tissue Surrounding Wound: Erythemic Wound Undermining at 12:00: 1.0 Wound Undermining at 3:00: 1.0 Wound Undermining at 6:00: 1.5 Wound General Appearance: Reddened - purple, Draining, Necrotic, Bone Palpable, Muscle Visible Wound Assessment #2: Wound Number: 2 Wound Present on Admission: No New Wound: Yes Status Change of Wound: No Wound Location Body Site Modif: right Wound Location Body Site: metatarsal head - 5th metatarsal hed scattered to 5th toe. Wound Type: pressure ulcer Thien Test: Does not Thien Pressure Ulcer Stage: Deep Tissue Injury Wound Thickness: Full Thickness Wound Length: 4.0 - scattered Wound Width: 1.0 - scattered Wound Depth: utd Percent of Wound [place]/Red: 50 Percent of Wound Purple/Maroon: 50 Wound Drainage Amount: None Wound Drainage Odor: None/Absent Tissue Surrounding Wound: Erythemic Wound General Appearance: Reddened Wound Assessment #3: Wound Number: 3 Wound Present on Admission: No New Wound: Yes Status Change of Wound: No Wound Location Body Site Modif: left, upper Wound Location Body Site: arm Wound Type: blister Thien Test: Does not Thien Wound Thickness: Partial Thickness Wound Length: 2.0 Wound Width: 1.5 Percent of Wound [place]/Red: 100 Wound Drainage Amount: None Wound Drainage Odor: None/Absent Tissue Surrounding Wound: Intact Wound General Appearance: Reddened Wound Assessment #4: Wound Number: 4 Wound Present on Admission: No New Wound: Yes Status Change of Wound: No Wound Location Body Site Modif: right, lateral Wound Location Body Site: heel Wound Type: pressure ulcer Thien Test: Does not Thien Pressure Ulcer Stage: Deep Tissue Injury Wound Length: 2.0 Wound Width: 2.0 Wound Depth: utd Percent of Wound Purple/Maroon: 100 Wound Drainage Amount: None Wound Drainage Odor: None/Absent Tissue Surrounding Wound: Erythemic Wound General Appearance: Reddened Wound Assessment #5: Wound Number: 5 Wound Present on Admission: No New Wound: Yes Status Change of Wound: No Wound Location Body Site Modif: right, medial Wound Location Body Site: heel Wound Type: pressure ulcer Thien Test: Does not Thien Pressure Ulcer Stage: Deep Tissue Injury Wound Length: 2.0 Wound Width: 2.0 Wound Depth: utd Percent of Wound [place]/Red: 50 Percent of Wound Purple/Maroon: 50 Wound Drainage Amount: None Wound Drainage Odor: None/Absent Tissue Surrounding Wound: Erythemic Wound General Appearance: Reddened Wound Assessment #6: Wound Number: 6 Wound Present on Admission: No New Wound: Yes Status Change of Wound: No Wound Location Body Site Modif: right, lateral Wound Location Body Site: malleolus/ankle Wound Type: pressure ulcer Thien Test: Does not Thien Pressure Ulcer Stage: Deep Tissue Injury - SDTI Wound Length: 1.0 Wound Width: 1.0 Wound Depth: UTD Percent of Wound [place]/Red: 80 Percent of Wound Purple/Maroon: 20 Wound Drainage Amount: None Wound Drainage Odor: None/Absent Tissue Surrounding Wound: Erythemic Wound General Appearance: Reddened Wound Assessment #7: Wound Number: 7 Wound Present on Admission: No New Wound: Yes Status Change of Wound: No Wound Location Body Site Modif: left Wound Location Body Site: ear Wound Type: scab Thien Test: Does not Thien Wound Thickness: Partial Thickness Wound Length: 1.0 Wound Width: 1.0 Percent of Wound Black/Brown: 100 - SCAB/DRY Wound Drainage Amount: None Wound Drainage Odor: None/Absent Tissue Surrounding Wound: Intact Wound General Appearance: Open to air, Clean/Dry Wound Comment #1 Right 5th metatarsal head extending to toe scattered Deep tissue injury. #2 Right medial heel deep tissue injury. #3 Right lateral heel deep tissue injury. #4 Right lateral malleolus suspected deep tissue injury. #5 Left ear scab. #6 Left upper arm blister. upon reassessment noted these sites, explained importance of repositioning/ offloading stated in icelandic " no more turning me", explained benefit was able to reposition and offload. Recommendation. - Local wound care as ordered. -Encourage repositioning offloading feet/heels, -heel protectors. -Avoid shear and friction. -Optimize nutrition. -Keep clean and dry. -Apply low air loss mattress p200 for wound and skin management. -Assess and notify MD for any changes of condition to skin noted GAYLE CASAS Aug 13, 2017 15:01
--- NOTE | 2017-08-13 15:25 | Pulmonology Progress Note ---
Assessment/Plan Problems: (1) Sepsis (2) Encephalopathy acute (3) HTN (hypertension) (4) Anemia (5) History of uterine cancer Assessment/Plan WBC still high ( rising) low grade temp last night CT scan reviewed continue abx by ID wound care. dc to [facility] when cultures are back and WBC is lower Subjective ROS Limited/Unobtainable: No Constitutional: Reports: no symptoms HEENT: Repors: no symptoms Respiratory: Reports: no symptoms Allergies: Coded Allergies: PENICILLINS (Unverified Allergy, Unknown, 08/05/17) Objective Last 24 Hour Vital Signs Date Time Temp Pulse Resp B/P (MAP) Pulse Ox O2 Delivery O2 Flow Rate FiO2 08/13/17 12:00 98.0 76 20 111/60 99 Room Air 08/13/17 08:00 98.2 86 24 123/52 97 Room Air 08/13/17 06:51 Nasal Cannula 2.0 28 08/13/17 06:50 98 Nasal Cannula 2.0 28 08/13/17 06:50 80 18 Nasal Cannula 2.0 28 08/13/17 04:33 98.4 89 17 130/74 96 Nasal Cannula 2.0 08/13/17 00:08 98.4 74 17 118/65 97 Nasal Cannula 2.0 08/12/17 21:02 Nasal Cannula 2.0 28 08/12/17 21:02 98 Nasal Cannula 2.0 28 08/12/17 21:02 73 18 Nasal Cannula 2.0 28 08/12/17 20:14 98.1 72 18 119/56 98 Nasal Cannula 2.0 08/12/17 15:48 97.5 75 20 116/44 97 Nasal Cannula 2.0 Intake and Output 08/13/17 08/14/17 19:00 07:00 Intake Total 150 ml Balance 150 ml Intake Oral 150 ml # Bowel Movements 1 General Appearance: WD/WN HEENT: normocephalic Respiratory/Chest: chest wall non-tender, lungs clear Breasts: no masses Cardiovascular: normal peripheral pulses Abdomen: normal bowel sounds, no organomegaly Extremities: no cyanosis Skin: no rash Laboratory Tests 08/13/17 08:05: White Blood Count 17.8H, Red Blood Count 2.78L, Hemoglobin 8.1L, Hematocrit 24.7L, Mean Corpuscular Volume 89, Mean Corpuscular Hemoglobin 29.3, Mean Corpuscular Hemoglobin Concent 32.9, Red Cell Distribution Width 15.1H, Platelet Count 386, Mean Platelet Volume 6.0L, Neutrophils (%) (Auto) 84.9H, Lymphocytes (%) (Auto) 8.3L, Monocytes (%) (Auto) 5.3, Eosinophils (%) (Auto) 0.9, Basophils (%) (Auto) 0.7, Erythrocyte Sedimentation Rate 136H, Sodium Level 139, Potassium Level 3.0L, Chloride Level 112H, Carbon Dioxide Level 13L, Anion Gap 14, Blood Urea Nitrogen 9, Creatinine 1.0, Estimat Glomerular Filtration Rate , Glucose Level 109H, Calcium Level 7.7L, Phosphorus Level 2.5, Magnesium Level 1.7L, Total Bilirubin 0.3, Aspartate Amino Transf (AST/SGOT) 13L , Alanine Aminotransferase (ALT/SGPT) 8L, Alkaline Phosphatase 140H, C-Reactive Protein, Quantitative 17.5H, Total Protein 6.2L, Albumin 1.2L, Globulin 5.0, Albumin/Globulin Ratio 0.2L Current Medications Medications (Trade) Dose Ordered Sig/Ahsmukh Route PRN Reason Start Time Stop Time Status Last Admin Dose Admin Acetaminophen (Tylenol) 650 mg Q4H PRN ORAL T>100.5 08/08/17 03:00 09/05/17 06:59 08/12/17 11:59 Albuterol/ Ipratropium (DuoNeb 0.5-3(2.5)mg/3ml) 3 ml Q4H PRN HHN Shortness of Breath 08/10/17 11:00 08/13/17 23:59 Ceftriaxone Sodium 2 gm/ Sodium Chloride 110 ml @ 220 mls/hr Q24H IVPB 08/11/17 22:00 08/18/17 21:59 08/12/17 21:20 Chlorhexidine Gluconate (Saranya-Hex 2%) 1 applic DAILY TOPIC 08/14/17 09:00 09/13/17 08:59 Dextrose (Dextrose 50%) STAT PRN IV Hypoglycemia 08/08/17 07:00 09/05/17 06:59 Heparin Sodium (Porcine) (Heparin 5000 units/ml) 5,000 units EVERY 12 HOURS SUBQ 08/08/17 09:00 09/05/17 08:59 08/13/17 09:14 Insulin Aspart (NovoLOG) BEFORE MEALS AND HS SUBQ 08/08/17 06:30 09/05/17 11:29 08/13/17 13:00 Morphine Sulfate (Morphine Sulfate) 2 mg Q4H PRN IVP Moderate Pain (Pain Scale 4-6) 08/08/17 04:00 08/14/17 15:59 Nitroglycerin (Ntg) 0.4 mg Q5MIN X 3 DOSES PRN SL Prn Chest Pain 08/08/17 00:45 09/05/17 06:59 Ondansetron HCl (Zofran) 4 mg Q6H PRN IVP Nausea & Vomiting 08/08/17 01:00 09/05/17 06:59 Polyethylene Glycol (Miralax) 17 gm DAILYPRN PRN ORAL Constipation 08/08/17 07:00 09/05/17 06:59 Sodium Chloride 1,000 ml @ 150 mls/hr Q6H40M IV 08/08/17 00:45 09/05/17 06:59 08/13/17 09:12 Temazepam (Restoril) 15 mg HSPRN PRN ORAL Insomnia 08/08/17 21:00 08/13/17 20:59 Vancomycin HCl (Vanco rx to dose) 1 ea DAILY PRN MISC . 08/08/17 09:00 09/05/17 06:59 Vancomycin/Sodium Chloride 250 ml @ 166.667 mls/hr Q24H IVPB 08/10/17 12:00 08/15/17 11:59 08/13/17 13:01 MELISSA ARDON Aug 13, 2017 15:25
[2017-08-13 16:00] VITALS: BP 137/55
[2017-08-13 20:48] VITALS: BP 133/64
[2017-08-13] MEDS: cefTRIAXone 2 GM in NS 110 ML IVPB SCH (21:00)
[2017-08-14] VITALS: BP 100/65
[2017-08-14 04:00] VITALS: BP 119/73
[2017-08-14] MEDS: NovoLOG Insulin Flexpen SUBQ SCH ×4 (06:05→23:43)
[2017-08-14 08:00] VITALS: BP 122/47
[2017-08-14] MEDS: Dyna-Hex 2% Top Sol 2oz TOPIC SCH (08:34)
[2017-08-14] MEDS: Heparin 5000 units/ml inj SUBQ SCH ×2 (08:36→23:44)
[2017-08-14 12:00] VITALS: BP 133/59
--- NOTE | 2017-08-14 12:40 | Infectious Diseases Prog Note ---
Assessment/Plan Assessment/Plan ASSESSMENT: 87 y/o female with: //Low grade and worsening leukocytosis, improving- r/o RAFI, recurrent bacteremia , PNA -CXR 08/13: Equivocal mild interstitial congestive changes. // CoNS in blood Cx 01/21 ? Bacteremia vs contaminant ?decub source r/o endocarditis - 08/05 Bcx / CoNS, 08/08 Bcx NTD 08/08 TTE: no vegetations seen. Mod AR, mild MR, mild TR, mild-mod DC // UTI - P Mirabilis (Gill S) // Stage IV sacral decubitus ulcer POA, w/ osteomyelitis - SP debridement and bone biopsy 08/08 08/08 (OR) wound cx : GRAM STAIN Final GRAM STAIN RESULT NO WHITE BLOOD CELLS NO ORGANISMS SEEN CULTURE AEROBIC Preliminary Organism 1 STREPTOCOCCUS GROUP G GROWTH: 3+ Organism 2 STREP SPECIES, ALPHA HEMOLYTIC GROWTH: 1+ path Acute on Chronic OM, soft tissue with fibrosis and necrosis -OR findings: slough and necrotic tissue as well as exposed bone. sharp excisional debridement down to the muscle was performed removing all the unhealthy and nonviable tissue. Following this, the bone that was visible and palpable was rongeured and sent for culture as well as pathology for osteomyelitis . 08/07 wound cx (superficial): +3 K PnA (R Amp), +3 P. mirabilis (gill S), +3 skin arcelia - elevated ESR,crp -CT abd/p 08/11: Evidence of osseous destruction of the pubic symphysis consistent with osteomyelitis. Presence of gas bubbles indicate likely infection by gas-forming organism. Contiguity with the bladder suggested this could be extension of adjacent cystitis, but this could also be a separate process. Possible bladder wall thickening, could indicate cystitis. There is a Velasquez catheter present. Large sacrococcygeal decubitus ulcer. Coccyx likely exposed, osteomyelitis certainly a possibility. Previously demonstrated ventral hernia no longer evident, presumably surgically repaired. There is also evidence of a small bowel anastomosis. Rectal wall thickening, could indicate proctitis.. However, similarity to prior exam raises possibility that this is baseline for this patient. Bilateral pleural effusions, right greater than left , not evident previously edema consistent with anasarca, also not evident previously. 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 - improved // Thrombocytosis // h/o ventral umbilical hernia incarceration - SP exploratory laparotomy, lysis of adhesions, repair of large ventral hernia with mesh 08/20/16 // h/o uterine CA // DM2 // NH resident // Bedbound // PCN allergy - tolerating cefepime // Full Code PLAN: -STAT CBC, to monitor WBC -f/u repeat cx - continue IV vancomycin #9 pending bone cultures -Continue Ceftriaxone (abx #9) for UTI, sacral ulcer -s/p 6d Cefepime 08/11 -will likely need 6 weeks of IV abx from I+D on 08/08; end date 09/18/17- final abx regimen to be determine pending OR cx -weekly CBC/CMP - f/u repeat Bcx - monitor CBC, temperatures - monitor BMP - wound care Discussed with RN. Subjective Allergies: Coded Allergies: PENICILLINS (Unverified Allergy, Unknown, 08/05/17) Subjective afebrile in 48hrs no cbc today Objective Vital Signs Last 24 Hour Vital Signs Date Time Temp Pulse Resp B/P (MAP) Pulse Ox O2 Delivery O2 Flow Rate FiO2 08/14/17 08:00 97.5 84 20 122/47 98 Nasal Cannula 3.0 08/14/17 04:00 97.9 74 20 119/73 100 Nasal Cannula 3.0 08/14/17 00:00 97.9 71 20 100/65 99 Nasal Cannula 3.0 08/13/17 21:00 97 Nasal Cannula 2.0 28 08/13/17 21:00 Nasal Cannula 2.0 28 08/13/17 20:48 98.4 72 18 133/64 98 Nasal Cannula 3.0 08/13/17 16:00 97.0 80 17 137/55 96 Nasal Cannula 2.0 Height (Feet): 5 Height (Inches): 1.00 Weight (Pounds): 140 Objective General Appearance: no acute distress HEENT: mucous membranes moist Respiratory/Chest: lungs clear Cardiovascular: normal rate Abdomen: soft, non tender Extremities: no edema Skin: ulcers reviewed Laboratory Tests Test 08/13/17 18:15 08/14/17 11:15 Urine Color Pending Urine Appearance Pending Urine pH Pending Urine Specific [place] Pending Urine Protein Pending Urine Glucose (UA) Pending Urine Ketones Pending Urine Occult Blood Pending Urine Nitrite Pending Urine Bilirubin Pending Urine Urobilinogen Pending Urine Leukocyte Esterase Pending Vancomycin Level Trough 16.2 ug/mL (5.0-12.0) H Current Medications Medications (Trade) Dose Ordered Sig/Hasmukh Route PRN Reason Start Time Stop Time Status Last Admin Dose Admin Acetaminophen (Tylenol) 650 mg Q4H PRN ORAL T>100.5 08/08/17 03:00 09/05/17 06:59 08/12/17 11:59 Albuterol/ Ipratropium (DuoNeb 0.5-3(2.5)mg/3ml) 3 ml Q4H PRN HHN Shortness of Breath 08/10/17 11:00 08/13/17 23:59 Ceftriaxone Sodium 2 gm/ Sodium Chloride 110 ml @ 220 mls/hr Q24H IVPB 08/11/17 22:00 08/18/17 21:59 08/13/17 21:00 Chlorhexidine Gluconate (Saranya-Hex 2%) 1 applic DAILY TOPIC 08/14/17 09:00 09/13/17 08:59 08/14/17 08:34 Dextrose (Dextrose 50%) STAT PRN IV Hypoglycemia 08/08/17 07:00 09/05/17 06:59 Heparin Sodium (Porcine) (Heparin 5000 units/ml) 5,000 units EVERY 12 HOURS SUBQ 08/08/17 09:00 09/05/17 08:59 08/14/17 08:36 Insulin Aspart (NovoLOG) BEFORE MEALS AND HS SUBQ 08/08/17 06:30 09/05/17 11:29 08/13/17 21:10 Morphine Sulfate (Morphine Sulfate) 2 mg Q4H PRN IVP Moderate Pain (Pain Scale 4-6) 08/08/17 04:00 08/14/17 15:59 Nitroglycerin (Ntg) 0.4 mg Q5MIN X 3 DOSES PRN SL Prn Chest Pain 08/08/17 00:45 09/05/17 06:59 Ondansetron HCl (Zofran) 4 mg Q6H PRN IVP Nausea & Vomiting 08/08/17 01:00 09/05/17 06:59 Polyethylene Glycol (Miralax) 17 gm DAILYPRN PRN ORAL Constipation 08/08/17 07:00 09/05/17 06:59 Sodium Chloride 1,000 ml @ 150 mls/hr Q6H40M IV 08/08/17 00:45 09/05/17 06:59 08/14/17 10:21 Vancomycin HCl (Vanco rx to dose) 1 ea DAILY PRN MISC . 08/08/17 09:00 09/05/17 06:59 Vancomycin/Sodium Chloride 250 ml @ 166.667 mls/hr Q24H IVPB 08/10/17 12:00 08/19/17 11:59 08/13/17 13:01 Kallie Barry M.D. Aug 14, 2017 12:40
[2017-08-14] MEDS: Vancomycin 750mg/NS 250ml IVPB SCH (13:41)
[2017-08-14 14:28] LABS: MEAN CORPUSCULAR HEMOGLOBIN 29.2 PG (27.0-31.0); MEAN CORPUSCULAR HGB CONC 32.6 G/DL (32.0-36.0); MEAN CORPUSCULAR VOLUME 90 FL (80-99); PLATELET COUNT 353 K/UL (150-450); RED BLOOD COUNT 2.53 M/UL (4.20-5.40); RED CELL DISTRIBUTION WIDTH 14.6 % (11.6-14.8); WHITE BLOOD COUNT 12.8 K/UL (4.8-10.8)
[2017-08-14 14:36] LABS: ANION GAP 15 mmol/L (5-15); CALCIUM 6.9 MG/DL (8.5-10.1); CARBON DIOXIDE 14 MMOL/L (21-32); CHLORIDE 114 MMOL/L (98-107); CREATININE 0.9 MG/DL (0.55-1.30); SODIUM 144 MMOL/L (136-145)
[2017-08-14 14:39] LABS: POTASSIUM 2.2 MMOL/L (3.5-5.1)
[2017-08-14] MEDS ORDERED: KCl 10% 40mEq/30ml liquid NG ONE ×2 (15:00→18:30)
[2017-08-14 16:00] VITALS: BP 140/72
[2017-08-14] MEDS ORDERED: Morphine 5mg/2.5ml Oral Soln ORAL PRN (16:00)
[2017-08-14 16:29] LABS: BAND NEUTROPHILS % (MANUAL) 0 % (0-8); BASOPHILS % (MANUAL) 0 % (0-2); EOSINOPHILS % (MANUAL) 2 % (0-3); LYMPHOCYTES % (MANUAL) 8 % (20-45); NEUTROPHILS % (MANUAL) 85 % (45-75); PLATELET ESTIMATE ADEQUATE; TOTAL CELLS COUNTED 100
[2017-08-14 16:30] LABS: ANISOCYTOSIS 1+; HYPOCHROMASIA 1+; PLATELET MORPHOLOGY NORMAL; POLYCHROMASIA 1+
--- NOTE | 2017-08-14 16:44 | Pulmonology Progress Note ---
Assessment/Plan Problems: (1) Sepsis (2) Encephalopathy acute (3) HTN (hypertension) (4) Anemia (5) History of uterine cancer Assessment/Plan Neuro evaluation WBC still high eats a little continue abx by ID wound care. dc to [place] [facility] when cultures are back and WBC is lower Subjective ROS Limited/Unobtainable: No Constitutional: Reports: no symptoms HEENT: Repors: no symptoms Respiratory: Reports: no symptoms Allergies: Coded Allergies: PENICILLINS (Unverified Allergy, Unknown, 08/05/17) Objective Last 24 Hour Vital Signs Date Time Temp Pulse Resp B/P (MAP) Pulse Ox O2 Delivery O2 Flow Rate FiO2 08/14/17 12:00 98.8 81 20 133/59 98 Nasal Cannula 3.0 08/14/17 08:00 97.5 84 20 122/47 98 Nasal Cannula 3.0 08/14/17 04:00 97.9 74 20 119/73 100 Nasal Cannula 3.0 08/14/17 00:00 97.9 71 20 100/65 99 Nasal Cannula 3.0 08/13/17 21:00 97 Nasal Cannula 2.0 28 08/13/17 21:00 Nasal Cannula 2.0 28 08/13/17 20:48 98.4 72 18 133/64 98 Nasal Cannula 3.0 Intake and Output 08/14/17 08/15/17 19:00 07:00 Intake Total 750 ml Balance 750 ml IV Total 750 ml General Appearance: WD/WN HEENT: normocephalic Respiratory/Chest: chest wall non-tender, lungs clear Breasts: no masses Cardiovascular: normal rate Abdomen: normal bowel sounds, soft, non tender Extremities: no cyanosis, no clubbing Skin: no rash Microbiology Date/Time Source Procedure Growth Status 08/13/17 11:10 Blood Blood Culture - Preliminary Resulted Laboratory Tests 08/13/17 18:15: Urine Color [Pending], Urine Appearance [Pending], Urine pH [Pending], Urine Specific [place] [Pending], Urine Protein [Pending], Urine Glucose (UA) [Pending ], Urine Ketones [Pending], Urine Occult Blood [Pending], Urine Nitrite [Pending ], Urine Bilirubin [Pending], Urine Urobilinogen [Pending], Urine Leukocyte Esterase [Pending] 08/14/17 11:15: Vancomycin Level Trough 16.2H 08/14/17 13:50: White Blood Count 12.8H, Red Blood Count 2.53L, Hemoglobin 7.4L, Hematocrit 22.7L, Mean Corpuscular Volume 90, Mean Corpuscular Hemoglobin 29.2, Mean Corpuscular Hemoglobin Concent 32.6, Red Cell Distribution Width 14.6, Platelet Count 353, Mean Platelet Volume 6.0L, Neutrophils (%) (Auto) , Lymphocytes (%) ( Auto) , Monocytes (%) (Auto) , Eosinophils (%) (Auto) , Basophils (%) (Auto) , Differential Total Cells Counted 100, Neutrophils % (Manual) 85H, Lymphocytes % (Manual) 8L, Monocytes % (Manual) 5, Eosinophils % (Manual) 2, Basophils % ( Manual) 0, Band Neutrophils 0, Platelet Estimate Adequate, Platelet Morphology Normal, Polychromasia 1+, Hypochromasia 1+, Anisocytosis 1+, Sodium Level 144, Potassium Level 2.2*L, Chloride Level 114H, Carbon Dioxide Level 14L, Anion Gap 15, Blood Urea Nitrogen 8, Creatinine 0.9, Estimat Glomerular Filtration Rate , Glucose Level 114H, Calcium Level 6.9L Current Medications Medications (Trade) Dose Ordered Sig/Hasmukh Route PRN Reason Start Time Stop Time Status Last Admin Dose Admin Acetaminophen (Tylenol) 650 mg Q4H PRN ORAL T>100.5 08/08/17 03:00 09/05/17 06:59 08/12/17 11:59 Albuterol/ Ipratropium (DuoNeb 0.5-3(2.5)mg/3ml) 3 ml Q4H PRN HHN Shortness of Breath 08/10/17 11:00 08/13/17 23:59 Ceftriaxone Sodium 2 gm/ Sodium Chloride 110 ml @ 220 mls/hr Q24H IVPB 08/11/17 22:00 08/18/17 21:59 08/13/17 21:00 Chlorhexidine Gluconate (Saranya-Hex 2%) 1 applic DAILY TOPIC 08/14/17 09:00 09/13/17 08:59 08/14/17 08:34 Dextrose (Dextrose 50%) STAT PRN IV Hypoglycemia 08/08/17 07:00 09/05/17 06:59 Heparin Sodium (Porcine) (Heparin 5000 units/ml) 5,000 units EVERY 12 HOURS SUBQ 08/08/17 09:00 09/05/17 08:59 08/14/17 08:36 Insulin Aspart (NovoLOG) BEFORE MEALS AND HS SUBQ 08/08/17 06:30 09/05/17 11:29 08/13/17 21:10 Morphine Sulfate (Morphine 5mg/ 2.5ml Oral Soln) 6 mg Q4H PRN ORAL MODERATE PAIN (4-6) 08/14/17 16:00 09/13/17 15:59 Nitroglycerin (Ntg) 0.4 mg Q5MIN X 3 DOSES PRN SL Prn Chest Pain 08/08/17 00:45 09/05/17 06:59 Ondansetron HCl (Zofran) 4 mg Q6H PRN IVP Nausea & Vomiting 08/08/17 01:00 09/05/17 06:59 Polyethylene Glycol (Miralax) 17 gm DAILYPRN PRN ORAL Constipation 08/08/17 07:00 09/05/17 06:59 Sodium Chloride 1,000 ml @ 150 mls/hr Q6H40M IV 08/08/17 00:45 09/05/17 06:59 08/14/17 10:21 Vancomycin HCl (Vanco rx to dose) 1 ea DAILY PRN MISC . 08/08/17 09:00 09/05/17 06:59 Vancomycin/Sodium Chloride 250 ml @ 166.667 mls/hr Q24H IVPB 08/10/17 12:00 08/19/17 11:59 08/14/17 13:41 MELISSA ARDON Aug 14, 2017 16:44
--- NOTE | 2017-08-14 17:07 | Diagnostic Imaging Report ---
Indication: SOB Technique: One view of the chest Comparison: none Findings: Patient is rotated to the right. There is elevation of the left hemidiaphragm and atelectasis at the left lung base. Interim placement right arm PICC, tip projecting at the level the cavoatrial junction. Mild generalized interstitial prominence persists, may be congestive, versus chronic senescent changes. No new infiltrates. Slight blunting of the right costophrenic sulcus, could indicate a small right pleural effusion of Impression: Possible small right pleural effusion New right arm PICC Otherwise little chemical cell changer one day, findings as described
[2017-08-14 20:00] VITALS: BP 114/59
[2017-08-14] MEDS: cefTRIAXone 2 GM in NS 110 ML IVPB SCH (23:42)
[2017-08-15] VITALS: BP 128/69
[2017-08-15 04:00] VITALS: BP 149/70
[2017-08-15] MEDS: NovoLOG Insulin Flexpen SUBQ SCH ×3 (05:59→17:27)
--- NOTE | 2017-08-15 08:08 | Pulmonology Progress Note ---
Assessment/Plan Assessment/Plan ASSESSMENT sepsis with bacteremia ( true vs [id number] vs from decub source) acute encephalopathy ( likely due to sepsis and UTI) UTI with Proteus sacral decub un-stageable/stage 4, POA , s/p 08/08 Excisional debridement of necrotic stage 4 sacral pressure ulcer down to muscle, OM of sacral decub HTN anemia Hx of uterine Ca DM ARF -resolved, likely prerenal ( 2 to sepsis and dehydration) moderate pulmonary HTN multiple DTI POA severe protein calorie malnutrition e/lyte imbalance ( hypo K, hypo Mg) PLAN OF CARE [facility] floor IVF abx ID follows ECHO no evidence of vegetation, EF 55% and RVSP of 45 c/w moderate pulmonary HTN renal US with 1.8 cm indeterminate hypoechoic mass versus cyst in the left kidney. CT A/P noted , no mass, + osteo monitor renal parameters, lytes , stable ARF resolved, creat down to normal monitor lytes and replace as needed s/p debridement 08/08 wound care as per surgeon recommendation pathology c/w acute and chronic OM will need total 6 weeks of abx anemia w/up noted s/p Venofer monitor counts transfuse to keep Hgb above 7.5 DVT prophylaxis Bowel regimen Pain management dietary recommendations noted, on Nabil replace K and Mg prior to dc dc today to SNF on 32 more days of abx as recommended per ID for osteo rx case discussed and evaluated by supervising physician Subjective Allergies: Coded Allergies: PENICILLINS (Unverified Allergy, Unknown, 08/05/17) Subjective no signs of distress afebrile, mild leucocytosis K-2.9 HH up 8.9/27.4 Objective Last 24 Hour Vital Signs Date Time Temp Pulse Resp B/P (MAP) Pulse Ox O2 Delivery O2 Flow Rate FiO2 08/15/17 04:00 98.2 92 20 149/70 100 Room Air 08/15/17 00:00 97.7 77 20 128/69 98 Room Air 08/14/17 20:00 98.4 80 20 114/59 96 Room Air 08/14/17 16:00 98.1 90 20 140/72 95 Nasal Cannula 3.0 08/14/17 12:00 98.8 81 20 133/59 98 Nasal Cannula 3.0 Objective General Appearance: no acute distress HEENT: normocephalic, atraumatic, anicteric Respiratory/Chest: lungs clear, no respiratory distress, chest wall tender Cardiovascular: normal rate, regular rhythm, no gallop/murmur, RUE PICC intact Abdomen: normal bowel sounds, soft, non tender, non distended Skin: other - sacral area with dresing, intact Neurologic/Psychiatric: abnormal gait, other - awake, poorly responsive Musculoskeletal: atrophy - BLE Microbiology Date/Time Source Procedure Growth Status 08/13/17 11:25 Blood Blood Culture - Preliminary NO GROWTH AFTER 24 HOURS Resulted 08/13/17 11:10 Blood Blood Culture - Preliminary Staphylococcus Sp Coag Neg Resulted Laboratory Tests 08/14/17 11:15: Vancomycin Level Trough 16.2H 08/14/17 13:50: White Blood Count 12.8H, Red Blood Count 2.53L, Hemoglobin 7.4L, Hematocrit 22.7L, Mean Corpuscular Volume 90, Mean Corpuscular Hemoglobin 29.2, Mean Corpuscular Hemoglobin Concent 32.6, Red Cell Distribution Width 14.6, Platelet Count 353, Mean Platelet Volume 6.0L, Neutrophils (%) (Auto) , Lymphocytes (%) ( Auto) , Monocytes (%) (Auto) , Eosinophils (%) (Auto) , Basophils (%) (Auto) , Differential Total Cells Counted 100, Neutrophils % (Manual) 85H, Lymphocytes % (Manual) 8L, Monocytes % (Manual) 5, Eosinophils % (Manual) 2, Basophils % ( Manual) 0, Band Neutrophils 0, Platelet Estimate Adequate, Platelet Morphology Normal, Polychromasia 1+, Hypochromasia 1+, Anisocytosis 1+, Sodium Level 144, Potassium Level 2.2*L, Chloride Level 114H, Carbon Dioxide Level 14L, Anion Gap 15, Blood Urea Nitrogen 8, Creatinine 0.9, Estimat Glomerular Filtration Rate , Glucose Level 114H, Calcium Level 6.9L 08/15/17 06:20: White Blood Count [Pending], Red Blood Count [Pending], Hemoglobin [Pending], Hematocrit [Pending], Mean Corpuscular Volume [Pending], Mean Corpuscular Hemoglobin [Pending], Mean Corpuscular Hemoglobin Concent [Pending], Red Cell Distribution Width [Pending], Platelet Count [Pending], Mean Platelet Volume [ Pending], Neutrophils (%) (Auto) [Pending], Lymphocytes (%) (Auto) [Pending], Monocytes (%) (Auto) [Pending], Eosinophils (%) (Auto) [Pending], Basophils (%) (Auto) [Pending], Sodium Level [Pending], Potassium Level [Pending], Chloride Level [Pending], Carbon Dioxide Level [Pending], Blood Urea Nitrogen [Pending], Creatinine [Pending], Estimat Glomerular Filtration Rate [Pending], Glucose Level [Pending], Calcium Level [Pending], Erythrocyte Sedimentation Rate [ Pending], Phosphorus Level [Pending], Magnesium Level [Pending], Total Bilirubin [Pending], Aspartate Amino Transf (AST/SGOT) [Pending], Alanine Aminotransferase (ALT/SGPT) [Pending], Alkaline Phosphatase [Pending], C- Reactive Protein, Quantitative [Pending], Total Protein [Pending], Albumin [ Pending], Globulin [Pending] Current Medications Medications (Trade) Dose Ordered Sig/Hasmukh Route PRN Reason Start Time Stop Time Status Last Admin Dose Admin Acetaminophen (Tylenol) 650 mg Q4H PRN ORAL T>100.5 08/08/17 03:00 09/05/17 06:59 08/12/17 11:59 Albuterol/ Ipratropium (DuoNeb 0.5-3(2.5)mg/3ml) 3 ml Q4H PRN HHN Shortness of Breath 08/10/17 11:00 08/13/17 23:59 Ceftriaxone Sodium 2 gm/ Sodium Chloride 110 ml @ 220 mls/hr Q24H IVPB 08/11/17 22:00 08/18/17 21:59 08/14/17 23:42 Chlorhexidine Gluconate (Saranya-Hex 2%) 1 applic DAILY TOPIC 08/14/17 09:00 09/13/17 08:59 08/14/17 08:34 Dextrose (Dextrose 50%) STAT PRN IV Hypoglycemia 08/08/17 07:00 09/05/17 06:59 Heparin Sodium (Porcine) (Heparin 5000 units/ml) 5,000 units EVERY 12 HOURS SUBQ 08/08/17 09:00 09/05/17 08:59 08/14/17 23:44 Insulin Aspart (NovoLOG) BEFORE MEALS AND HS SUBQ 08/08/17 06:30 09/05/17 11:29 08/14/17 23:43 Morphine Sulfate (Morphine 5mg/ 2.5ml Oral Soln) 6 mg Q4H PRN ORAL MODERATE PAIN (4-6) 08/14/17 16:00 09/13/17 15:59 Nitroglycerin (Ntg) 0.4 mg Q5MIN X 3 DOSES PRN SL Prn Chest Pain 08/08/17 00:45 09/05/17 06:59 Ondansetron HCl (Zofran) 4 mg Q6H PRN IVP Nausea & Vomiting 08/08/17 01:00 09/05/17 06:59 Polyethylene Glycol (Miralax) 17 gm DAILYPRN PRN ORAL Constipation 08/08/17 07:00 09/05/17 06:59 Sodium Chloride 1,000 ml @ 150 mls/hr Q6H40M IV 08/08/17 00:45 09/05/17 06:59 08/15/17 05:58 Vancomycin HCl (Vanco rx to dose) 1 ea DAILY PRN MISC . 08/08/17 09:00 09/05/17 06:59 Vancomycin/Sodium Chloride 250 ml @ 166.667 mls/hr Q24H IVPB 08/10/17 12:00 08/19/17 11:59 08/14/17 13:41 Oswald (Araceli Delong NP Aug 15, 2017 08:07
[2017-08-15 08:14] LABS: ALANINE AMINOTRANSFERASE 9 U/L (12-78); ALBUMIN/GLOBULIN RATIO 0.3 (1.0-2.7); ANION GAP 14 mmol/L (5-15); ASPARTATE AMINO TRANSFERASE 14 U/L (15-37); CALCIUM 7.5 MG/DL (8.5-10.1); CARBON DIOXIDE 15 MMOL/L (21-32); CHLORIDE 113 MMOL/L (98-107); CREATININE 1.1 MG/DL (0.55-1.30); CRP QUANT 21.7 mg/dL (0.00-0.90); MAGNESIUM 1.6 MG/DL (1.8-2.4); PHOSPHORUS 1.9 MG/DL (2.5-4.9); POTASSIUM 2.9 MMOL/L (3.5-5.1); SODIUM 142 MMOL/L (136-145); TOTAL PROTEIN 5.8 G/DL (6.4-8.2)
[2017-08-15 08:46] VITALS: BP 132/65
[2017-08-15 09:28] LABS: ERYTHROCYTE SEDIMENTATION RATE 124 MM/HR (0-42)
[2017-08-15 09:31] LABS: BASOPHILS % (AUTO) 0.4 % (0.0-2.0); LYMPHOCYTES % (AUTO) 9.3 % (20.0-45.0); MEAN CORPUSCULAR HEMOGLOBIN 28.5 PG (27.0-31.0); MEAN CORPUSCULAR HGB CONC 32.4 G/DL (32.0-36.0); MEAN CORPUSCULAR VOLUME 88 FL (80-99); MEAN PLATELET VOLUME 5.5 FL (6.5-10.1); MONOCYTES % (AUTO) 7.9 % (1.0-10.0); NEUTROPHILS % (AUTO) 81.3 % (45.0-75.0); PLATELET COUNT 347 K/UL (150-450); RED BLOOD COUNT 3.11 M/UL (4.20-5.40); RED CELL DISTRIBUTION WIDTH 14.9 % (11.6-14.8); WHITE BLOOD COUNT 13.3 K/UL (4.8-10.8)
[2017-08-15] MEDS: Dyna-Hex 2% Top Sol 2oz TOPIC SCH (09:41)
[2017-08-15] MEDS: Heparin 5000 units/ml inj SUBQ SCH (09:43)
--- NOTE | 2017-08-15 11:04 | Infectious Diseases Prog Note ---
Assessment/Plan Assessment/Plan ASSESSMENT: 87 y/o female with: //Low grade and worsening leukocytosis, improving- r/o RAFI, recurrent bacteremia , PNA -CXR 08/13: Equivocal mild interstitial congestive changes. // CoNS in blood Cx 01/21 ?true Bacteremia vs contaminant ?decub source r/o endocarditis - CONS not on wound, TTE with no signs of endocarditis- recurrent CONS-?blood contaminants or true bacteremia 08/05 Bcx 4 CoNS, 08/08 Bcx neg, 08/13 Bcx 1/ CoNS 08/08 TTE: no vegetations seen. Mod AR, mild MR, mild TR, mild-mod OR // UTI - P Mirabilis (Gill S) // Stage IV sacral decubitus ulcer POA, w/ osteomyelitis - SP debridement and bone biopsy 08/08 08/08 (OR) wound cx : GRAM STAIN Final GRAM STAIN RESULT NO WHITE BLOOD CELLS NO ORGANISMS SEEN CULTURE AEROBIC Preliminary Organism 1 STREPTOCOCCUS GROUP G GROWTH: 3+ Organism 2 STREP SPECIES, ALPHA HEMOLYTIC GROWTH: 1+ path Acute on Chronic OM, soft tissue with fibrosis and necrosis -OR findings: slough and necrotic tissue as well as exposed bone. sharp excisional debridement down to the muscle was performed removing all the unhealthy and nonviable tissue. Following this, the bone that was visible and palpable was rongeured and sent for culture as well as pathology for osteomyelitis . 08/07 wound cx (superficial): +3 K PnA (R Amp), +3 P. mirabilis (gill S), +3 skin arcelia - elevated ESR,crp -CT abd/p 08/11: Evidence of osseous destruction of the pubic symphysis consistent with osteomyelitis. Presence of gas bubbles indicate likely infection by gas-forming organism. Contiguity with the bladder suggested this could be extension of adjacent cystitis, but this could also be a separate process. Possible bladder wall thickening, could indicate cystitis. There is a Velasquez catheter present. Large sacrococcygeal decubitus ulcer. Coccyx likely exposed, osteomyelitis certainly a possibility. Previously demonstrated ventral hernia no longer evident, presumably surgically repaired. There is also evidence of a small bowel anastomosis. Rectal wall thickening, could indicate proctitis.. However, similarity to prior exam raises possibility that this is baseline for this patient. Bilateral pleural effusions, right greater than left , not evident previously edema consistent with anasarca, also not evident previously. 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 Subjective Allergies: Coded Allergies: PENICILLINS (Unverified Allergy, Unknown, 08/05/17) Subjective afebrile in 48hrs no cbc today Objective Vital Signs Last 24 Hour Vital Signs Date Time Temp Pulse Resp B/P (MAP) Pulse Ox O2 Delivery O2 Flow Rate FiO2 08/15/17 08:46 98.4 85 20 132/65 97 Room Air 08/15/17 08:43 94 Nasal Cannula 2.0 28 08/15/17 08:43 Nasal Cannula 2.0 28 08/15/17 04:00 98.2 92 20 149/70 100 Room Air 08/15/17 00:00 97.7 77 20 128/69 98 Room Air 08/14/17 20:00 98.4 80 20 114/59 96 Room Air 08/14/17 16:00 98.1 90 20 140/72 95 Nasal Cannula 3.0 08/14/17 12:00 98.8 81 20 133/59 98 Nasal Cannula 3.0 Height (Feet): 5 Height (Inches): 1.00 Weight (Pounds): 140 Objective General Appearance: no acute distress HEENT: mucous membranes moist Respiratory/Chest: lungs clear Cardiovascular: normal rate Abdomen: soft, non tender Extremities: no edema Skin: ulcers Microbiology Date/Time Source Procedure Growth Status 08/13/17 11:25 Blood Blood Culture - Preliminary NO GROWTH AFTER 24 HOURS Resulted 08/13/17 11:10 Blood Blood Culture - Preliminary Staphylococcus Sp Coag Neg Resulted Laboratory Tests Test 08/14/17 11:15 08/14/17 13:50 08/15/17 06:20 Vancomycin Level Trough 16.2 ug/mL (5.0-12.0) H White Blood Count 12.8 K/UL (4.8-10.8) H 13.3 K/UL (4.8-10.8) H Red Blood Count 2.53 M/UL (4.20-5.40) L 3.11 M/UL (4.20-5.40) L Hemoglobin 7.4 G/DL (12.0-16.0) L 8.9 G/DL (12.0-16.0) L Hematocrit 22.7 % (37.0-47.0) L 27.4 % (37.0-47.0) L Mean Corpuscular Volume 90 FL (80-99) 88 FL (80-99) Mean Corpuscular Hemoglobin 29.2 PG (27.0-31.0) 28.5 PG (27.0-31.0) Mean Corpuscular Hemoglobin Concent 32.6 G/DL (32.0-36.0) 32.4 G/DL (32.0-36.0) Red Cell Distribution Width 14.6 % (11.6-14.8) 14.9 % (11.6-14.8) H Platelet Count 353 K/UL (150-450) 347 K/UL (150-450) Mean Platelet Volume 6.0 FL (6.5-10.1) L 5.5 FL (6.5-10.1) L Neutrophils (%) (Auto) % (45.0-75.0) 81.3 % (45.0-75.0) H Lymphocytes (%) (Auto) % (20.0-45.0) 9.3 % (20.0-45.0) L Monocytes (%) (Auto) % (1.0-10.0) 7.9 % (1.0-10.0) Eosinophils (%) (Auto) % (0.0-3.0) 1.0 % (0.0-3.0) Basophils (%) (Auto) % (0.0-2.0) 0.4 % (0.0-2.0) Differential Total Cells Counted 100 Neutrophils % (Manual) 85 % (45-75) H Lymphocytes % (Manual) 8 % (20-45) L Monocytes % (Manual) 5 % (1-10) Eosinophils % (Manual) 2 % (0-3) Basophils % (Manual) 0 % (0-2) Band Neutrophils 0 % (0-8) Platelet Estimate Adequate Platelet Morphology Normal Polychromasia 1+ Hypochromasia 1+ Anisocytosis 1+ Sodium Level 144 MMOL/L (136-145) 142 MMOL/L (136-145) Potassium Level 2.2 MMOL/L (3.5-5.1) *L 2.9 MMOL/L (3.5-5.1) L Chloride Level 114 MMOL/L (98-107) H 113 MMOL/L (98-107) H Carbon Dioxide Level 14 MMOL/L (21-32) L 15 MMOL/L (21-32) L Anion Gap 15 mmol/L (5-15) 14 mmol/L (5-15) Blood Urea Nitrogen 8 mg/dL (7-18) 8 mg/dL (7-18) Creatinine 0.9 MG/DL (0.55-1.30) 1.1 MG/DL (0.55-1.30) Estimat Glomerular Filtration Rate mL/min (>60) mL/min (>60) Glucose Level 114 MG/DL (74-106) H 107 MG/DL (74-106) H Calcium Level 6.9 MG/DL (8.5-10.1) L 7.5 MG/DL (8.5-10.1) L Erythrocyte Sedimentation Rate 124 MM/HR (0-42) H Phosphorus Level 1.9 MG/DL (2.5-4.9) L Magnesium Level 1.6 MG/DL (1.8-2.4) L Total Bilirubin 0.3 MG/DL (0.2-1.0) Aspartate Amino Transf (AST/SGOT) 14 U/L (15-37) L Alanine Aminotransferase (ALT/SGPT) 9 U/L (12-78) L Alkaline Phosphatase 129 U/L (46-116) H C-Reactive Protein, Quantitative 21.7 mg/dL (0.00-0.90) H Total Protein 5.8 G/DL (6.4-8.2) L Albumin 1.2 G/DL (3.4-5.0) L Globulin 4.6 g/dL Albumin/Globulin Ratio 0.3 (1.0-2.7) L Current Medications Medications (Trade) Dose Ordered Sig/Hasmukh Route PRN Reason Start Time Stop Time Status Last Admin Dose Admin Acetaminophen (Tylenol) 650 mg Q4H PRN ORAL T>100.5 08/08/17 03:00 09/05/17 06:59 08/12/17 11:59 Albuterol/ Ipratropium (DuoNeb 0.5-3(2.5)mg/3ml) 3 ml Q4H PRN HHN Shortness of Breath 08/10/17 11:00 08/13/17 23:59 Ceftriaxone Sodium 2 gm/ Sodium Chloride 110 ml @ 220 mls/hr Q24H IVPB 08/11/17 22:00 08/18/17 21:59 08/14/17 23:42 Chlorhexidine Gluconate (Saranya-Hex 2%) 1 applic DAILY TOPIC 08/14/17 09:00 09/13/17 08:59 08/15/17 09:41 Dextrose (Dextrose 50%) STAT PRN IV Hypoglycemia 08/08/17 07:00 09/05/17 06:59 Heparin Sodium (Porcine) (Heparin 5000 units/ml) 5,000 units EVERY 12 HOURS SUBQ 08/08/17 09:00 09/05/17 08:59 08/15/17 09:43 Insulin Aspart (NovoLOG) BEFORE MEALS AND HS SUBQ 08/08/17 06:30 09/05/17 11:29 08/14/17 23:43 Morphine Sulfate (Morphine 5mg/ 2.5ml Oral Soln) 6 mg Q4H PRN ORAL MODERATE PAIN (4-6) 08/14/17 16:00 09/13/17 15:59 Nitroglycerin (Ntg) 0.4 mg Q5MIN X 3 DOSES PRN SL Prn Chest Pain 08/08/17 00:45 09/05/17 06:59 Ondansetron HCl (Zofran) 4 mg Q6H PRN IVP Nausea & Vomiting 08/08/17 01:00 09/05/17 06:59 Polyethylene Glycol (Miralax) 17 gm DAILYPRN PRN ORAL Constipation 08/08/17 07:00 09/05/17 06:59 Sodium Chloride 1,000 ml @ 150 mls/hr Q6H40M IV 08/08/17 00:45 09/05/17 06:59 08/15/17 05:58 Vancomycin HCl (Vanco rx to dose) 1 ea DAILY PRN MISC . 08/08/17 09:00 09/05/17 06:59 Vancomycin/Sodium Chloride 250 ml @ 166.667 mls/hr Q24H IVPB 08/10/17 12:00 08/19/17 11:59 08/14/17 13:41 Kallie Barry M.D. Aug 15, 2017 11:04
[2017-08-15] MEDS ORDERED: NOVOLOG100 UNITS1 SUBQ (12:07)
[2017-08-15] MEDS ORDERED: CEFTRIAXON2 GM/50 ML IV (12:07)
[2017-08-15 12:15] VITALS: BP 134/63
[2017-08-15] MEDS ORDERED: VANCOMYCIN1 GM/2502 IVPB (13:20)
[2017-08-15] MEDS: Vancomycin 750mg/NS 250ml IVPB SCH (14:27)
[2017-08-15 16:15] VITALS: BP 134/64
[2017-08-15 20:00] VITALS: BP 128/48
[2017-08-15] MEDS ORDERED: Tubing IV Secondary IV ONE ×2 (20:49)
[2017-08-15] MEDS ORDERED: Tubing IV Blood Pump IV ONE (20:49)
--- NOTE | 2017-08-18 09:35 | Discharge Summary ---
Discharge Summary Hospital Course Date of Admission Aug 06, 2017 at 00:56 Date of Discharge Aug 15, 2017 at 20:50 Admitting Diagnosis sepsis. uti HPI Imelda House is a 87 year old female who was admitted on Aug 06, 2017 at 00: 56 for Sepsis,Urinary Tract Infection Hospital Course dc summary #[id number] Discharge Medications New Medications: Ceftriaxone Na/Dextrose,Iso (Ceftriaxone 2 Gm Piggyback) 2 Gm/50 Ml Froz.piggy 2 GM IV DAILY, #32 BAG Vancomycin Hcl/D5w (Vancomycin-D5w 1 G/250 Ml) 1 Gm/250 Ml Plast..bag 750 MG IVPB Q24H, #32 BAG Insulin Aspart (Novolog Flexpen) 100 Unit/1 Ml Insuln.pen 0 UNITS SUBQ BEFORE MEALS AND HS, #1 EA Continued Medications: Acetaminophen (Pain & Fever) 325 Mg Tablet 650 MG PO Q6HR PRN for Fever/Headache/Mild Pain, TAB Al Hydroxide/mg Hydroxide (Mag-Al Liquid) 30 Ml Oral.susp 30 ML PO EVERY 6 HOURS PRN for Nausea & Vomiting, ML Ascorbic Acid* (Vitamin C*) 500 Mg Tablet 500 MG ORAL DAILY, #30 TAB 0 Refills Diphenhydramine Hcl* (Diphenhydramine Hcl*) 25 Mg Capsule 25 MG ORAL Q6H PRN for Itching, #30 CAP 0 Refills Docusate Sodium* (Colace*) 100 Mg Capsule 100 MG ORAL THREE TIMES A DAY, CAP Folic Acid* (Folic Acid*) 1 Mg Tablet 1 MG ORAL DAILY, TAB Guar Gum (Nutrisource Fiber) 1 Each Packet 1 EACH PO, PACKET Nitroglycerin (Nitroglycerin) 0.4 Mg Tab.subl 0.4 MG SL EVERY 5 MIN X 3DOSES PRN for Prn Chest Pain, TAB Polyethylene Glycol 3350* (Miralax*) 17 Gm Powd.pack 17 GM ORAL HS PRN for Constipation, PACKET Ranitidine Hcl* (Zantac*) 150 Mg Tablet 150 MG ORAL DAILY, #30 TAB 0 Refills Discharge Condition Upon Discharge: stable Discharge Disposition Patient was discharged to SNF/Subacute Facility(03) Discharge Diagnoses: Oswald (Vanchtein),Araceli JACKSON Aug 18, 2017 09:35
--- NOTE | 2017-08-19 02:15 | Discharge Summary 2 SIG ---
DATE OF ADMISSION: 08/06/2017 DATE OF DISCHARGE: 08/15/2017 REASON FOR ADMISSION: 87-year-old female with history of hypertension, hyperlipidemia, and diabetes, presented from the detention facility for evaluation of altered mental status and fever. Symptoms were ongoing for the last few days. No nausea. No vomiting. Workup in the emergency room revealed leukocytosis, WBC- 15.7. Urinalysis consistent with evidence of UTI. BUN -60 and creatinine --1.8. Hemoglobin 9.7 and hematocrit-32.1. Glucose- 413. Lactic acid- 2.5. The patient was tachycardic, tachypneic, but no fever. The patient was diagnosed with sepsis, UTI, acute encephalopathy, hyperglycemia secondary to diabetes, dehydration, anemia, and admitted for further management. HOSPITAL STAY: The patient was admitted. The patient was started on IV fluids. The patient was pancultured and started on empiric antibiotics. ID specialist consult was requested. Wound care consultation was requested due to the multiple deep tissue injuries present on admission. Plastic surgery evaluation was requested secondary to stage IV decubitus present on admission. The patient subsequently undergone on 08/08/2017 excisional debridement of necrotic stage IV sacral pressure ulcer down to muscle with a deep open bone biopsy of the sacrum. Bone biopsy revealed acute on chronic osteomyelitis. Urine culture revealed Proteus. Blood culture initially staph coag negative. No evidence of vegetation on echocardiogram. Last blood culture repeated on 08/15/2017 were negative as well as on 08/08/2017. ID closely followed. Antibiotic regimen was optimized as per ID recommendation. Bacteremia initially thought as true versus contaminant versus decubitus source. Wound care revealed Strep group A and Strep alpha hemolytic. Bacteremia possibly secondary to osteomyelitis. Patient will need treatment with antibiotics for total of 6 weeks. Continue antibiotic at [facility] for 32 more days as recommended by ID specialist. Wound care provided for sacral decubitus as per plastic surgeon recommendation and multiple deep tissue injuries present on admission, as per wound nurse recommendations. Echocardiogram revealed no evidence of vegetation, ejection fraction 55%, right ventricular systolic pressure of 45 consistent with moderate pulmonary hypertension. Renal ultrasound revealed 1.8 cm indeterminate hypoechoic mass versus cyst in the left kidney. CT of the abdomen and pelvis subsequently was done and revealed no mass, but showed evidence of osseous destruction of the pubic symphysis consistent with osteomyelitis, presence of gas bubble indicated likely infection by gas-forming organism. Renal parameters and electrolytes were closely monitored. Electrolytes were replaced as needed. Acute renal failure resolved. Creatinine down to normal. Acute renal failure was likely due to sepsis and dehydration. Pain management was provided. Anemia workup noted. The patient status post Venofer. Counts were closely monitored with goal to keep hemoglobin above 7.5. DVT prophylaxis was provided. Bowel regimen was instituted. Dietary recommendations were implemented.The patient was on Nabil. The patient had a PICC line placement for long time IV antibiotics. Leukocytosis down to 13.3. Hemoglobin and hematocrit remained stable - 8.9 and 27.4, respectively. The patient had undergone transfusion of 2 units of packed red blood cells for hemoglobin -7.4 and hematocrit -22.7. Renal parameters down to normal. BUN - 8 and creatinine- 1.1. On discharge day noted low phosphorus- 1.9, low magnesium -1.6, and low potassium - 2.6. Electrolytes were replaced prior to discharge. Mental status back to baseline. Acute encephalopathy was likely due to sepsis and underlying infection. As patient clinically improved, mental status cleared to baseline. The patient was stable to discharge back to detention facility. FINAL DIAGNOSES: 1. Sepsis with bacteremia. 2. Acute encephalopathy (likely due to sepsis and urinary tract infection). 3. Urinary tract infection with Proteus. 4. Sacral decubitus stage IV/un-stageable, present on admission. 5. Status post on 08/08/2017 excisional debridement of necrotic stage IV sacral pressure ulcer down to muscle. 6. Osteomyelitis of sacral decubitus. 7. Hypertension. 8. Anemia. 9. History of uterine cancer. 10. Diabetes mellitus. 11. Dehydration, resulting in prerenal azotemia. 12. Acute renal failure, -resolved likely prerenal secondary to sepsis and dehydration. 13. Moderate pulmonary hypertension. 14. Multiple deep tissue injuries, present on admission. 15. Severe protein-calorie malnutrition. 16. Electrolyte imbalances ( hypokalemia, hypophosphatemia, and hypomagnesemia). DISCHARGE MEDICATIONS: See medication reconciliation list. DISCHARGE INSTRUCTIONS: The patient was discharged to detention facility. Follow up with medical doctor at the facility. Continue antibiotic as outlined in medication reconciliation list. Jumana Carbajal M.D. Araceli Akers N.P. (Vanchtein) DR: Carina JOB#: [id number] CC: [id number]
== END 2017-08-15 20:50 | DRG 710 ==
LOC: EDBD 22:23 → EMR 23:00 → 2E 08-06 00:56 → EDBEDREQ 08-06 01:27 → 4E 08-07 23:15
PROC: 30233N1 Transfusion of Nonautologous Red Blood Cells into Peripheral Vein, Percutaneous Approach (ICD-10-PCS; 2017-08-07)
PROC: 0KBN0ZZ Excision of Right Hip Muscle, Open Approach (ICD-10-PCS; 2017-08-08)
PROC: 0QB10ZX Excision of Sacrum, Open Approach, Diagnostic (ICD-10-PCS; 2017-08-08)
PROC: 0KBP0ZZ Excision of Left Hip Muscle, Open Approach (ICD-10-PCS; principal; 2017-08-08 09:00)
PROC: 02HV33Z Insertion of Infusion Device into Superior Vena Cava, Percutaneous Approach (ICD-10-PCS; 2017-08-13)
DX: A41.9 Sepsis, unspecified organism (principal); E43 Unspecified severe protein-calorie malnutrition; L89.154 Pressure ulcer of sacral region, stage 4; N17.9 Acute kidney failure, unspecified; G93.41 Metabolic encephalopathy; I96 Gangrene, not elsewhere classified; L89.221 Pressure ulcer of left hip, stage 1; L89.210 Pressure ulcer of right hip, unstageable; E11.65 Type 2 diabetes mellitus with hyperglycemia; I27.20 Pulmonary hypertension, unspecified; E86.0 Dehydration; N39.0 Urinary tract infection, site not specified; N18.3 Chronic kidney disease, stage 3 (moderate); D64.9 Anemia, unspecified; I12.9 Hypertensive chronic kidney disease with stage 1 through stage 4 chronic kidney disease, or unspecified chronic kidney disease; Z85.42 Personal history of malignant neoplasm of other parts of uterus; E78.5 Hyperlipidemia, unspecified; Z68.26 Body mass index [BMI] 26.0-26.9, adult; M46.28 Osteomyelitis of vertebra, sacral and sacrococcygeal region; B96.4 Proteus (mirabilis) (morganii) as the cause of diseases classified elsewhere; E87.6 Hypokalemia; E83.39 Other disorders of phosphorus metabolism; E83.42 Hypomagnesemia; Z88.0 Allergy status to penicillin; D47.3 Essential (hemorrhagic) thrombocythemia; Z79.4 Long term (current) use of insulin; L89.620 Pressure ulcer of left heel, unstageable; L89.890 Pressure ulcer of other site, unstageable
CPT/HCPCS: 36415; 36569; 71010; 74176; 76775; 76937; 80048; 80053; 80202; 81001; 81003; 82270; 82550; 82553; 82607; 82746; 82962; 83540; 83550; 83605; 83615; 83735; 84100; 84133; 84134; 84300; 84484; 84550; 85007; 85025; 85044; 85060; 85610; 85651; 85730; 86140; 86850; 86900; 86901; 86920; 87040; 87070; 87081; 87086; 87181; 87205; 89050; 93005; 93306; 94003; 94150; 94664; 94760; 99285; J1815; J2250; J8499